=== PATIENT | female | born 2000 | race Caucasian/White ===

== ENCOUNTER 2019-12-25 11:42 | Inpatient (IN) | payer MEDICAID, OTHER ==
[~2019-12-25] VITALS: Ht 152.4 cm; Wt 64.0 kg
[2019-12-25] MEDS ORDERED: DOCU-350 PO (11:49)
[2019-12-25] MEDS ORDERED: PROP10TA73 PO (11:49)
[2019-12-25] MEDS ORDERED: DIPH12.54 PO (11:49)
[2019-12-25] MEDS ORDERED: OLAN5TAB2 PO (11:49)
[2019-12-25] MEDS ORDERED: LEVO50 PO (11:49)
[2019-12-25] MEDS ORDERED: CHOL100018 PO (11:49)
[2019-12-25 12:49] LABS: BASOPHILS % (AUTO) 0.6 % (0.0-2.0); EOSINOPHILS % (AUTO) 1.5 % (1.0-6.0); HEMOGLOBIN 13.4 g/dL (12.0-16.0); LYMPHOCYTES # (AUTO) 3.4 K/uL (1.0-4.8); LYMPHOCYTES % (AUTO) 36.8 % (22.0-44.0); MEAN CORPUSCULAR HEMOGLOBIN 31.4 pg (26.0-34.0); MEAN CORPUSCULAR HGB CONC 33.5 G/dL (31.0-37.0); MEAN CORPUSCULAR VOLUME 94 fL (80-100); MONOCYTES # (AUTO) 0.7 K/uL (0.1-1.0); MONOCYTES % (AUTO) 7.5 % (2.0-9.0); NEUTROPHILS % (AUTO) 53.6 % (40.0-70.0); PLATELET COUNT (AUTO) 224 K/uL (150-450); RED BLOOD CELL COUNT(AUTO) 4.26 MIL/uL (4.00-5.20); RED CELL DISTRIBUTION WIDTH 13.2 % (11.5-14.5)
[2019-12-25 13:01] LABS: ANION GAP 7 mmol/L (8-16); CALCIUM, TOTAL 9.2 mg/dL (8.8-10.5); CARBON DIOXIDE 26 mmol/L (22-29); CHLORIDE 103 mmol/L (98-107); GLOMERULAR FILTR. RATE CALC > 60 mL/min (>60); GLUCOSE,RANDOM 94 mg/dL (70-110); POTASSIUM 4.1 mmol/L (3.5-5.1); SODIUM SERUM 136 mmol/L (136-145); UREA NITROGEN, BLOOD 12 mg/dL (7-18)
[2019-12-25 13:09] LABS: AMPHET/METH SCREEN,URINE NEGATIVE (NEGATIVE); BARBITURATE SCREEN, URINE NEGATIVE (NEGATIVE); BENZODIAZEPINES SCREEN,URINE NEGATIVE (NEGATIVE); CANNABINOID SCREEN,URINE NEGATIVE (NEGATIVE); COCAINE SCREEN,URINE NEGATIVE (NEGATIVE); METHADONE SCREEN, URINE NEGATIVE (NEGATIVE); OPIATE SCREEN,URINE NEGATIVE (NEGATIVE); PHENCYCLIDINE SCREEN,URINE NEGATIVE (NEGATIVE)
[2019-12-25 13:12] LABS: ALANINE AMINOTRANSFERASE 22 U/L (12-78); ALBUMIN 3.7 g/dL (3.4-5.0); ALKALINE PHOSPHATASE 95 U/L (46-116); ASPARTATE AMINOTRANSFERASE 15 U/L (15-37); BILIRUBIN,TOTAL 0.3 mg/dL (0.1-1.0); HCG,QUANTITATIVE 1 mIU/mL (0-6)
[2019-12-25] MEDS ORDERED: ZOLPIDEM TARTRATE 10 MG TABLET PO PRN (14:15)
[2019-12-25] MEDS ORDERED: LORazepam 1 MG TABLET PO ONE (15:15)
[2019-12-25] MEDS: ChlorproMAZINE HCL 100 MG TABLET PO PRN (16:50)
[2019-12-25] MEDS ORDERED: DiphenhydrAMINE HCL 50 MG/ML VIAL IM ONE (17:15)
[2019-12-25] MEDS ORDERED: LORazepam 2 MG/ML VIAL IM ONE (17:15)
[2019-12-25] MEDS ORDERED: HALOPERIDOL LACTATE 5 MG/ML VIAL IM ONE (17:15)
[2019-12-25] MEDS ORDERED: PROMETHAZINE HCL 25 MG TABLET PO PRN (18:45)
[2019-12-25] MEDS ORDERED: MAG HYDROX/AL HYDROX/SIMETH ES 30 ML SUSPENSION UDCUP PO PRN (18:45)
[2019-12-25] MEDS ORDERED: TUBERCULIN, PURIFIED PROTEIN DERIVATIVE 5 TU/0.1 ML SYRINGE ID ONE (18:45)
[2019-12-25] MEDS ORDERED: MAGNESIUM HYDROXIDE SUSPENSION 30 ML UDCUP PO PRN (18:45)
[2019-12-25] MEDS ORDERED: ACETAMINOPHEN 325 MG TABLET PO PRN (18:45)
[2019-12-25] MEDS ORDERED: GuaiFENesin/D-METHORPHAN [SUGAR-FREE] 200-20MG/10 ML SYRUP UDCUP PO PRN (18:45)
[2019-12-25] MEDS ORDERED: LOPERAMIDE HCL 2 MG CAPSULE PO PRN (18:45)
[2019-12-25 20:10] VITALS: BP 132/88
[2019-12-25] MEDS: CloNIDine HCL 0.1 MG TABLET PO SCH (21:00)
[2019-12-25] MEDS: TraZODone HCL 100 MG TABLET PO SCH (21:00)
[2019-12-25] MEDS: QUEtiapine FUMARATE 100 MG TABLET PO SCH (21:00)
[2019-12-26 06:59] LABS: CHOL/HDL RATIO 3.5 (3.9-5.7); THYROID STIMULATING HORMONE 2.53 uIU/mL (0.36-3.74)
[2019-12-26 08:00] VITALS: BP 124/90
[2019-12-26] MEDS: FOLIC ACID 1 MG TABLET PO SCH (08:34)
[2019-12-26] MEDS: QUEtiapine FUMARATE 100 MG TABLET PO SCH ×2 (08:34→13:31)
[2019-12-26] MEDS: THIAMINE 100 MG TABLET PO SCH ×2 (08:34→15:58)
[2019-12-26] MEDS: MULTIVITAMINS WITH MINERALS, THERAPEUTIC TABLET PO SCH (08:34)
[2019-12-26] MEDS: CloNIDine HCL 0.1 MG TABLET PO SCH ×2 (08:34→16:00)
[2019-12-26] MEDS: OMEGA-3/DHA/EPA/FISH OIL 1,000 MG CAPSULE PO SCH (08:34)
[2019-12-26] MEDS: LORazepam 1 MG TABLET PO PRN ×3 (09:34→15:58)
[2019-12-26] MEDS: ChlorproMAZINE HCL 100 MG TABLET PO PRN ×2 (09:35→19:56)
[2019-12-26 16:02] VITALS: BP 121/81
[2019-12-26] MEDS: TraZODone HCL 100 MG TABLET PO SCH (20:17)
[2019-12-26] MEDS ORDERED: QUEtiapine FUMARATE 200 MG TABLET PO SCH (21:00)
[2019-12-27] MEDS: ZOLPIDEM TARTRATE 10 MG TABLET PO PRN (00:15)
[2019-12-27] MEDS: LORazepam 1 MG TABLET PO PRN ×2 (00:15→12:42)
[2019-12-27 00:19] VITALS: BP 105/62
[2019-12-27 08:30] VITALS: BP 116/82
[2019-12-27] MEDS ORDERED: QUEtiapine FUMARATE 100 MG TABLET PO SCH (09:00)
[2019-12-27] MEDS: OMEGA-3/DHA/EPA/FISH OIL 1,000 MG CAPSULE PO SCH (09:02)
[2019-12-27] MEDS: CloNIDine HCL 0.1 MG TABLET PO SCH ×2 (09:02→17:35)
[2019-12-27] MEDS: THIAMINE 100 MG TABLET PO SCH ×2 (09:02→16:44)
[2019-12-27] MEDS: FOLIC ACID 1 MG TABLET PO SCH (09:02)
[2019-12-27] MEDS: MULTIVITAMINS WITH MINERALS, THERAPEUTIC TABLET PO SCH (09:02)
[2019-12-27 11:35] LABS: APPEARANCE,URINE CLOUDY (CLEAR); BILIRUBIN,URINE NEGATIVE (NEGATIVE); GLUCOSE, URINE (UA) NEGATIVE (NEGATIVE); KETONES,URINE NEGATIVE (NEGATIVE); LEUKOCYTE ESTERASE ,URINE NEGATIVE (NEGATIVE); NITRATE,URINE NEGATIVE (NEGATIVE); OCCULT BLOOD,URINE NEGATIVE (NEGATIVE); PROTEIN,URINE NEGATIVE (NEGATIVE); UROBILINOGEN,URINE 0.2 mg/dL (<=1.0)
[2019-12-27] MEDS: QUEtiapine FUMARATE 100 MG TABLET PO SCH (12:15)
[2019-12-27] MEDS: QUEtiapine FUMARATE 100 MG TABLET PO PRN (15:52)
[2019-12-27] MEDS ORDERED: LORazepam 2 MG/ML VIAL ONE (17:13)
[2019-12-27] MEDS ORDERED: DiphenhydrAMINE HCL 50 MG/ML VIAL ONE (17:14)
[2019-12-27] MEDS ORDERED: HALOPERIDOL LACTATE 5 MG/ML VIAL ONE (17:14)
[2019-12-27] MEDS ORDERED: LORazepam 2 MG/ML VIAL IM ONE (17:15)
[2019-12-27] MEDS ORDERED: HALOPERIDOL LACTATE 5 MG/ML VIAL IM ONE (17:15)
[2019-12-27] MEDS ORDERED: DiphenhydrAMINE HCL 50 MG/ML VIAL IM ONE (17:15)
[2019-12-27] MEDS ORDERED: DIPH25TA20 PO (17:16)
[2019-12-27 17:21] VITALS: BP 105/67
[2019-12-27] MEDS: QUEtiapine FUMARATE 300 MG TABLET PO SCH (21:00)
[2019-12-27] MEDS: TraZODone HCL 100 MG TABLET PO SCH (21:00)
[2019-12-28 08:00] VITALS: BP 131/87
[2019-12-28] MEDS: OMEGA-3/DHA/EPA/FISH OIL 1,000 MG CAPSULE PO SCH (09:38)
[2019-12-28] MEDS: QUEtiapine FUMARATE 200 MG TABLET PO SCH (09:38)
[2019-12-28] MEDS: THIAMINE 100 MG TABLET PO SCH ×2 (09:38→16:53)
[2019-12-28] MEDS: FOLIC ACID 1 MG TABLET PO SCH (09:38)
[2019-12-28] MEDS: MULTIVITAMINS WITH MINERALS, THERAPEUTIC TABLET PO SCH (09:38)
[2019-12-28] MEDS: CloNIDine HCL 0.1 MG TABLET PO SCH ×2 (09:39→16:53)
[2019-12-28] MEDS: QUEtiapine FUMARATE 100 MG TABLET PO SCH (14:20)
[2019-12-28 16:11] VITALS: BP 120/77
[2019-12-28] MEDS: QUEtiapine FUMARATE 300 MG TABLET PO SCH (20:23)
[2019-12-28] MEDS: TraZODone HCL 100 MG TABLET PO SCH (20:23)
[2019-12-29] MEDS: CloNIDine HCL 0.1 MG TABLET PO SCH ×2 (08:22→16:25)
[2019-12-29] MEDS: FOLIC ACID 1 MG TABLET PO SCH (08:22)
[2019-12-29] MEDS: THIAMINE 100 MG TABLET PO SCH ×2 (08:22→16:25)
[2019-12-29] MEDS: QUEtiapine FUMARATE 200 MG TABLET PO SCH (08:22)
[2019-12-29] MEDS: OMEGA-3/DHA/EPA/FISH OIL 1,000 MG CAPSULE PO SCH (08:22)
[2019-12-29] MEDS: MULTIVITAMINS WITH MINERALS, THERAPEUTIC TABLET PO SCH (08:22)
[2019-12-29 08:24] VITALS: BP 124/88
[2019-12-29] MEDS: HydrOXYzine PAMOATE 50 MG CAPSULE PO PRN (09:21)
[2019-12-29] MEDS: QUEtiapine FUMARATE 100 MG TABLET PO SCH (14:11)
[2019-12-29 16:19] VITALS: BP 125/81
[2019-12-29] MEDS: TraZODone HCL 100 MG TABLET PO SCH (20:16)
[2019-12-29] MEDS: QUEtiapine FUMARATE 300 MG TABLET PO SCH (20:16)
[2019-12-29] MEDS: ZOLPIDEM TARTRATE 10 MG TABLET PO PRN (23:38)
[2019-12-29] MEDS: LORazepam 1 MG TABLET PO PRN (23:43)
[2019-12-30] MEDS: FOLIC ACID 1 MG TABLET PO SCH (08:35)
[2019-12-30] MEDS: MULTIVITAMINS WITH MINERALS, THERAPEUTIC TABLET PO SCH (08:35)
[2019-12-30] MEDS: THIAMINE 100 MG TABLET PO SCH ×2 (08:35→16:14)
[2019-12-30] MEDS: LORazepam 1 MG TABLET PO PRN (08:35)
[2019-12-30] MEDS: HydrOXYzine PAMOATE 50 MG CAPSULE PO PRN (08:35)
[2019-12-30] MEDS: OMEGA-3/DHA/EPA/FISH OIL 1,000 MG CAPSULE PO SCH (08:35)
[2019-12-30] MEDS: QUEtiapine FUMARATE 200 MG TABLET PO SCH (08:35)
[2019-12-30] MEDS: CloNIDine HCL 0.1 MG TABLET PO SCH ×2 (08:36→16:13)
[2019-12-30 11:19] VITALS: BP 140/63
[2019-12-30] MEDS: QUEtiapine FUMARATE 100 MG TABLET PO SCH (13:14)
[2019-12-30 17:44] VITALS: BP 106/73
[2019-12-30] MEDS ORDERED: OMEG-135 PO (19:16)
[2019-12-30] MEDS ORDERED: QUET200T29 PO (19:16)
[2019-12-30] MEDS ORDERED: QUET300T18 PO (19:16)
[2019-12-30] MEDS ORDERED: TRAZ-257 PO (19:16)
[2019-12-30] MEDS ORDERED: QUET100T33 PO (19:16)
[2019-12-30] MEDS: QUEtiapine FUMARATE 300 MG TABLET PO SCH (21:13)
[2019-12-30] MEDS: TraZODone HCL 100 MG TABLET PO SCH (21:13)
[2019-12-31] MEDS: QUEtiapine FUMARATE 100 MG TABLET PO PRN (00:42)
[2019-12-31] MEDS: ZOLPIDEM TARTRATE 10 MG TABLET PO PRN (00:43)
[2020-01-01] MEDS ORDERED: QUET300T2 PO (09:54)
[2020-01-01] MEDS ORDERED: QUET100T PO (09:54)
[2020-01-01] MEDS ORDERED: QUET200T PO (09:54)
[2020-01-01] MEDS ORDERED: DIPH25 PO (09:54)
== END 2019-12-31 00:45 | disposition short-term general hospital (02) | DRG 750 ==
LOC: EMS 11:52 → UNDOADMIN 14:02 → 3EC 14:02 → 3EI 14:02 → 3EC 19:00 → 3EI 12-27 17:37
PROVIDERS: ADMIT Psychiatry & Neurology Psychiatry; ATTEND Psychiatry & Neurology Psychiatry
DX: F25.9 Schizoaffective disorder, unspecified (principal); E03.9 Hypothyroidism, unspecified; E55.9 Vitamin D deficiency, unspecified; Z98.51 Tubal ligation status; G47.00 Insomnia, unspecified; F41.9 Anxiety disorder, unspecified; K59.00 Constipation, unspecified; K21.9 Gastro-esophageal reflux disease without esophagitis; I10 Essential (primary) hypertension; U07.1 COVID-19
CPT/HCPCS: 83036; 84443; 84481; G0480; J1200; J1630; J2060

== ENCOUNTER 2020-01-04 14:45 | Inpatient (IN) | payer MEDICAID, OTHER ==
[~2020-01-04] VITALS: Ht 152.4 cm; Wt 64.6 kg
[~2020-01-04 14:45] MED LIST: CHOL100018 PO; DIPH25 PO; DOCU-350 PO; LEVO50 PO; OLAN5TAB2 PO; OMEG-135 PO; PROP10TA73 PO; QUET100T PO; QUET200T PO; QUET300T2 PO; TRAZ-257 PO
[2020-01-04 15:30] VITALS: BP 125/78
[2020-01-04 16:00] VITALS: BP 125/78
[2020-01-04] MEDS: LORazepam 2 MG TABLET PO PRN (18:11)
[2020-01-04] MEDS: QUEtiapine FUMARATE 100 MG TABLET PO PRN (18:12)
[2020-01-04] MEDS: TraZODone HCL 100 MG TABLET PO SCH (20:16)
[2020-01-04] MEDS: QUEtiapine FUMARATE 200 MG TABLET PO SCH (20:16)
[2020-01-04] MEDS: DiphenhydrAMINE HCL 25 MG CAPSULE PO SCH (21:18)
[2020-01-05] MEDS: QUEtiapine FUMARATE 100 MG TABLET PO PRN ×2 (00:32→23:48)
[2020-01-05] MEDS: LORazepam 2 MG TABLET PO PRN ×2 (00:32→23:48)
[2020-01-05 00:33] VITALS: BP 125/75
[2020-01-05] MEDS: LEVOTHYROXINE SODIUM 50 MCG TABLET PO SCH (07:00)
[2020-01-05 08:00] VITALS: BP 121/84
[2020-01-05] MEDS ORDERED: ACETAMINOPHEN 325 MG TABLET PO PRN (08:30)
[2020-01-05] MEDS ORDERED: BENZOCAINE/MENTHOL LOZENGE PO PRN (08:30)
[2020-01-05] MEDS ORDERED: BACITRACIN 28 GM OINTMENT TP PRN (08:30)
[2020-01-05] MEDS ORDERED: PETROLATUM,WHITE 28 GM JELLY TP PRN (08:30)
[2020-01-05] MEDS ORDERED: MAGNESIUM HYDROXIDE SUSPENSION 30 ML UDCUP PO PRN (08:30)
[2020-01-05] MEDS ORDERED: LOPERAMIDE HCL 2 MG CAPSULE PO PRN (08:30)
[2020-01-05] MEDS ORDERED: IBUPROFEN 600 MG TABLET PO PRN (08:30)
[2020-01-05] MEDS ORDERED: OMEPRAZOLE 20 MG CAPSULE PO PRN (08:30)
[2020-01-05] MEDS ORDERED: ALBUTEROL SULFATE HFA 90 MCG/PUFF 8 GM INHALER IH PRN (08:30)
[2020-01-05] MEDS ORDERED: DOCUSATE SODIUM 100 MG CAPSULE PO PRN (08:30)
[2020-01-05] MEDS ORDERED: CloNIDine HCL 0.1 MG TABLET PO PRN (08:30)
[2020-01-05] MEDS ORDERED: MAG HYDROX/AL HYDROX/SIMETH ES 30 ML SUSPENSION UDCUP PO PRN (08:30)
[2020-01-05] MEDS ORDERED: ONDANSETRON HCL 4 MG TABLET PO PRN (08:30)
[2020-01-05] MEDS: DOCUSATE SODIUM 250 MG CAPSULE PO SCH (08:33)
[2020-01-05] MEDS: PROPRANOLOL HCL 10 MG TABLET PO SCH ×2 (08:33→17:14)
[2020-01-05] MEDS: FOLIC ACID 1 MG TABLET PO SCH (08:33)
[2020-01-05] MEDS: OMEGA-3/DHA/EPA/FISH OIL 1,000 MG CAPSULE PO SCH (08:33)
[2020-01-05] MEDS: MULTIVITAMINS WITH MINERALS, THERAPEUTIC TABLET PO SCH (08:34)
[2020-01-05] MEDS: ASCORBIC ACID 500 MG TABLET PO SCH (08:34)
[2020-01-05] MEDS: QUEtiapine FUMARATE 100 MG TABLET PO SCH ×3 (08:34→17:37)
[2020-01-05] MEDS: THIAMINE 100 MG TABLET PO SCH ×2 (08:34→17:12)
[2020-01-05] MEDS: ZINC SULFATE 220 MG CAPSULE PO SCH (08:34)
[2020-01-05] MEDS: ENOXAPARIN SODIUM 40 MG/0.4 ML PF SYRINGE SQ SCH (08:34)
[2020-01-05] MEDS: CHOLECALCIFEROL (VIT D3) 1,000 UNITS [25 MCG] TABLET PO SCH (08:34)
[2020-01-05 16:13] VITALS: BP 114/79
[2020-01-05] MEDS: QUEtiapine FUMARATE 200 MG TABLET PO SCH (20:41)
[2020-01-05] MEDS: DiphenhydrAMINE HCL 25 MG CAPSULE PO SCH (20:41)
[2020-01-05] MEDS: TraZODone HCL 100 MG TABLET PO SCH (20:41)
[2020-01-06] MEDS: LEVOTHYROXINE SODIUM 50 MCG TABLET PO SCH (07:00)
[2020-01-06] MEDS: ZINC SULFATE 220 MG CAPSULE PO SCH (09:00)
[2020-01-06] MEDS: OMEGA-3/DHA/EPA/FISH OIL 1,000 MG CAPSULE PO SCH (09:00)
[2020-01-06] MEDS: ASCORBIC ACID 500 MG TABLET PO SCH (09:00)
[2020-01-06] MEDS: MULTIVITAMINS WITH MINERALS, THERAPEUTIC TABLET PO SCH (09:00)
[2020-01-06] MEDS: CHOLECALCIFEROL (VIT D3) 1,000 UNITS [25 MCG] TABLET PO SCH (09:00)
[2020-01-06] MEDS: FOLIC ACID 1 MG TABLET PO SCH (09:00)
[2020-01-06] MEDS: PROPRANOLOL HCL 10 MG TABLET PO SCH ×2 (09:00→16:25)
[2020-01-06] MEDS: ENOXAPARIN SODIUM 40 MG/0.4 ML PF SYRINGE SQ SCH (09:00)
[2020-01-06] MEDS: QUEtiapine FUMARATE 100 MG TABLET PO SCH ×3 (09:00→16:25)
[2020-01-06] MEDS: THIAMINE 100 MG TABLET PO SCH ×2 (09:00→16:25)
[2020-01-06] MEDS: DOCUSATE SODIUM 250 MG CAPSULE PO SCH (09:00)
[2020-01-06 16:20] VITALS: BP 110/71
[2020-01-06] MEDS: TraZODone HCL 100 MG TABLET PO SCH (20:39)
[2020-01-06] MEDS: DiphenhydrAMINE HCL 25 MG CAPSULE PO SCH (20:39)
[2020-01-06] MEDS: DIVALPROEX SODIUM 500 MG ER TABLET PO SCH (20:39)
[2020-01-06] MEDS: QUEtiapine FUMARATE 300 MG TABLET PO SCH (20:39)
[2020-01-07] MEDS: LEVOTHYROXINE SODIUM 50 MCG TABLET PO SCH (06:41)
[2020-01-07] MEDS: OMEGA-3/DHA/EPA/FISH OIL 1,000 MG CAPSULE PO SCH (08:31)
[2020-01-07] MEDS: DOCUSATE SODIUM 250 MG CAPSULE PO SCH (08:31)
[2020-01-07] MEDS: CHOLECALCIFEROL (VIT D3) 1,000 UNITS [25 MCG] TABLET PO SCH (08:31)
[2020-01-07] MEDS: FOLIC ACID 1 MG TABLET PO SCH (08:32)
[2020-01-07] MEDS: QUEtiapine FUMARATE 100 MG TABLET PO SCH ×3 (08:32→16:33)
[2020-01-07] MEDS: PROPRANOLOL HCL 10 MG TABLET PO SCH ×2 (08:32→16:33)
[2020-01-07] MEDS: MULTIVITAMINS WITH MINERALS, THERAPEUTIC TABLET PO SCH (08:33)
[2020-01-07] MEDS: THIAMINE 100 MG TABLET PO SCH ×2 (08:34→16:32)
[2020-01-07] MEDS: ASCORBIC ACID 500 MG TABLET PO SCH (08:34)
[2020-01-07] MEDS: ZINC SULFATE 220 MG CAPSULE PO SCH (08:35)
[2020-01-07] MEDS: ENOXAPARIN SODIUM 40 MG/0.4 ML PF SYRINGE SQ SCH (08:36)
[2020-01-07 09:01] VITALS: BP 113/74
[2020-01-07 18:27] VITALS: BP_SYST 115; BP_SYST 118; BP_DIAS 77; BP_DIAS 82
[2020-01-07] MEDS: DiphenhydrAMINE HCL 25 MG CAPSULE PO SCH (20:00)
[2020-01-07] MEDS: DIVALPROEX SODIUM 500 MG ER TABLET PO SCH (20:00)
[2020-01-07] MEDS: QUEtiapine FUMARATE 300 MG TABLET PO SCH (20:00)
[2020-01-07] MEDS: TraZODone HCL 100 MG TABLET PO SCH (20:00)
[2020-01-08] MEDS: LEVOTHYROXINE SODIUM 50 MCG TABLET PO SCH (06:15)
[2020-01-08 08:06] VITALS: BP 120/78
[2020-01-08] MEDS: THIAMINE 100 MG TABLET PO SCH ×2 (08:22→16:10)
[2020-01-08] MEDS: ASCORBIC ACID 500 MG TABLET PO SCH (08:22)
[2020-01-08] MEDS: MULTIVITAMINS WITH MINERALS, THERAPEUTIC TABLET PO SCH (08:22)
[2020-01-08] MEDS: QUEtiapine FUMARATE 100 MG TABLET PO SCH ×3 (08:22→16:10)
[2020-01-08] MEDS: PROPRANOLOL HCL 10 MG TABLET PO SCH ×2 (08:22→16:10)
[2020-01-08] MEDS: OMEGA-3/DHA/EPA/FISH OIL 1,000 MG CAPSULE PO SCH (08:23)
[2020-01-08] MEDS: FOLIC ACID 1 MG TABLET PO SCH (08:23)
[2020-01-08] MEDS: ZINC SULFATE 220 MG CAPSULE PO SCH (08:23)
[2020-01-08] MEDS: DOCUSATE SODIUM 250 MG CAPSULE PO SCH (08:23)
[2020-01-08] MEDS: CHOLECALCIFEROL (VIT D3) 1,000 UNITS [25 MCG] TABLET PO SCH (08:23)
[2020-01-08] MEDS: ENOXAPARIN SODIUM 40 MG/0.4 ML PF SYRINGE SQ SCH (08:23)
[2020-01-08 17:33] VITALS: BP 122/76
[2020-01-08] MEDS: TraZODone HCL 100 MG TABLET PO SCH (20:41)
[2020-01-08] MEDS: DIVALPROEX SODIUM 500 MG ER TABLET PO SCH (20:41)
[2020-01-08] MEDS: QUEtiapine FUMARATE 300 MG TABLET PO SCH (20:41)
[2020-01-08] MEDS: DiphenhydrAMINE HCL 25 MG CAPSULE PO SCH (20:41)
[2020-01-09] MEDS: LEVOTHYROXINE SODIUM 50 MCG TABLET PO SCH (06:55)
[2020-01-09] MEDS: LORazepam 2 MG TABLET PO PRN (06:56)
[2020-01-09] MEDS: QUEtiapine FUMARATE 100 MG TABLET PO PRN (06:56)
[2020-01-09 08:30] VITALS: BP 126/71
[2020-01-09] MEDS: DOCUSATE SODIUM 250 MG CAPSULE PO SCH (09:20)
[2020-01-09] MEDS: OMEGA-3/DHA/EPA/FISH OIL 1,000 MG CAPSULE PO SCH (09:21)
[2020-01-09] MEDS: FOLIC ACID 1 MG TABLET PO SCH (09:21)
[2020-01-09] MEDS: PROPRANOLOL HCL 10 MG TABLET PO SCH ×2 (09:22→21:00)
[2020-01-09] MEDS: THIAMINE 100 MG TABLET PO SCH ×2 (09:23→21:00)
[2020-01-09] MEDS: QUEtiapine FUMARATE 100 MG TABLET PO SCH ×3 (09:23→21:00)
[2020-01-09] MEDS: MULTIVITAMINS WITH MINERALS, THERAPEUTIC TABLET PO SCH (09:23)
[2020-01-09] MEDS: ASCORBIC ACID 500 MG TABLET PO SCH (09:24)
[2020-01-09] MEDS: CHOLECALCIFEROL (VIT D3) 1,000 UNITS [25 MCG] TABLET PO SCH (09:24)
[2020-01-09] MEDS: ZINC SULFATE 220 MG CAPSULE PO SCH (09:24)
[2020-01-09] MEDS: ENOXAPARIN SODIUM 40 MG/0.4 ML PF SYRINGE SQ SCH (09:25)
[2020-01-09 16:00] VITALS: BP 111/66
[2020-01-09] MEDS: DIVALPROEX SODIUM 500 MG ER TABLET PO SCH (21:00)
[2020-01-09] MEDS: DiphenhydrAMINE HCL 25 MG CAPSULE PO SCH (21:00)
[2020-01-09] MEDS: TraZODone HCL 100 MG TABLET PO SCH (21:00)
[2020-01-09] MEDS ORDERED: QUEtiapine FUMARATE 200 MG TABLET PO SCH (21:00)
[2020-01-09] MEDS ORDERED: LORazepam 2 MG/ML VIAL IM PRN (23:30)
== END 2020-01-09 17:49 | disposition short-term general hospital (02) | DRG 750 ==
LOC: 3EC 14:45 → AHU 01-09 08:05 → 5N 01-09 17:49 → UNDODISIN 01-09 18:00
PROVIDERS: ADMIT Psychiatry & Neurology Psychiatry; ATTEND Psychiatry & Neurology Psychiatry
DX: F25.0 Schizoaffective disorder, bipolar type (principal); E03.9 Hypothyroidism, unspecified; F43.10 Post-traumatic stress disorder, unspecified; I10 Essential (primary) hypertension; U07.1 COVID-19; K21.9 Gastro-esophageal reflux disease without esophagitis; K59.00 Constipation, unspecified; G47.00 Insomnia, unspecified; Z55.9 Problems related to education and literacy, unspecified; Z59.9 Problem related to housing and economic circumstances, unspecified; Z65.3 Problems related to other legal circumstances; Z79.899 Other long term (current) drug therapy; Z91.410 Personal history of adult physical and sexual abuse
CPT/HCPCS: 87426; J1650; J2060

== ENCOUNTER 2020-01-09 18:00 | Inpatient (IN) | payer OTHER ==
[~2020-01-09] VITALS: Ht 152.4 cm; Wt 62.4 kg
[2020-01-10] MEDS ORDERED: ALBUTEROL SULFATE HFA 90 MCG/PUFF 8 GM INHALER IH PRN (04:05)
[2020-01-10] MEDS ORDERED: MAG HYDROX/AL HYDROX/SIMETH ES 30 ML SUSPENSION UDCUP PO PRN (04:15)
[2020-01-10] MEDS ORDERED: MAGNESIUM HYDROXIDE SUSPENSION 30 ML UDCUP PO PRN (04:15)
[2020-01-10] MEDS ORDERED: LOPERAMIDE HCL 2 MG CAPSULE PO PRN (04:15)
[2020-01-10] MEDS ORDERED: CloNIDine HCL 0.1 MG TABLET PO PRN (04:15)
[2020-01-10] MEDS ORDERED: BACITRACIN 28 GM OINTMENT TP PRN (04:15)
[2020-01-10] MEDS ORDERED: BENZOCAINE/MENTHOL LOZENGE PO PRN (04:15)
[2020-01-10] MEDS ORDERED: ONDANSETRON HCL 4 MG TABLET PO PRN (04:30)
[2020-01-10] MEDS ORDERED: QUEtiapine FUMARATE 100 MG TABLET PO PRN (04:30)
[2020-01-10] MEDS ORDERED: PETROLATUM,WHITE 28 GM JELLY TP PRN ×2 (04:30→05:00)
[2020-01-10] MEDS: LEVOTHYROXINE SODIUM 50 MCG TABLET PO SCH (06:55)
[2020-01-10 06:56] VITALS: BP 122/58
[2020-01-10] MEDS: LORazepam 2 MG/ML VIAL IM PRN (08:28)
[2020-01-10] MEDS: FOLIC ACID 1 MG TABLET PO SCH (08:52)
[2020-01-10] MEDS: DOCUSATE SODIUM 250 MG CAPSULE PO SCH (08:52)
[2020-01-10] MEDS: MULTIVITAMINS WITH MINERALS, THERAPEUTIC TABLET PO SCH (08:52)
[2020-01-10] MEDS: OMEGA-3/DHA/EPA/FISH OIL 1,000 MG CAPSULE PO SCH (08:52)
[2020-01-10] MEDS: ENOXAPARIN SODIUM 40 MG/0.4 ML PF SYRINGE SQ SCH (08:53)
[2020-01-10] MEDS: ASCORBIC ACID 500 MG TABLET PO SCH (08:53)
[2020-01-10] MEDS: ZINC SULFATE 220 MG CAPSULE PO SCH (08:53)
[2020-01-10] MEDS: THIAMINE 100 MG TABLET PO SCH ×2 (08:53→22:22)
[2020-01-10] MEDS: CHOLECALCIFEROL (VIT D3) 1,000 UNITS [25 MCG] TABLET PO SCH (08:53)
[2020-01-10] MEDS ORDERED: QUEtiapine FUMARATE 100 MG TABLET PO SCH (09:00)
[2020-01-10] MEDS ORDERED: PROPRANOLOL HCL 10 MG TABLET PO SCH (09:00)
[2020-01-10] MEDS ORDERED: LORazepam 2 MG/ML VIAL IM ONE ×2 (11:30→16:00)
[2020-01-10] MEDS ORDERED: DiphenhydrAMINE HCL 50 MG/ML VIAL IM ONE ×2 (11:30→16:00)
[2020-01-10] MEDS ORDERED: HALOPERIDOL LACTATE 5 MG/ML VIAL IM ONE ×2 (11:30→16:00)
[2020-01-10 15:26] VITALS: BP 121/75
[2020-01-10] MEDS: QUEtiapine FUMARATE 200 MG TABLET PO SCH ×2 (16:00→22:21)
[2020-01-10] MEDS: GuanFACINE HCL 1 MG TABLET PO SCH ×2 (16:00→22:21)
[2020-01-10 16:23] VITALS: BP 128/56
[2020-01-10 20:28] VITALS: BP 123/66
[2020-01-10] MEDS ORDERED: TraZODone HCL 100 MG TABLET PO SCH (21:00)
[2020-01-10] MEDS: ZOLPIDEM TARTRATE 5 MG TABLET PO SCH (21:00)
[2020-01-10] MEDS ORDERED: QUEtiapine FUMARATE 200 MG TABLET PO SCH (21:00)
[2020-01-10] MEDS: DiphenhydrAMINE HCL 25 MG CAPSULE PO SCH (22:20)
[2020-01-10] MEDS: DIVALPROEX SODIUM 500 MG ER TABLET PO SCH (22:20)
[2020-01-10] MEDS: TraZODone HCL 100 MG TABLET PO SCH (22:20)
[2020-01-11 04:19] VITALS: BP 116/68
[2020-01-11] MEDS: LEVOTHYROXINE SODIUM 50 MCG TABLET PO SCH (07:26)
[2020-01-11 08:43] VITALS: BP 105/56
[2020-01-11] MEDS: DOCUSATE SODIUM 100 MG CAPSULE PO PRN (08:53)
[2020-01-11] MEDS: CHOLECALCIFEROL (VIT D3) 1,000 UNITS [25 MCG] TABLET PO SCH ×2 (08:53→09:00)
[2020-01-11] MEDS: ASCORBIC ACID 500 MG TABLET PO SCH ×2 (08:53→09:00)
[2020-01-11] MEDS: GuanFACINE HCL 1 MG TABLET PO SCH ×3 (08:53→19:47)
[2020-01-11] MEDS: LORazepam 2 MG TABLET PO PRN ×2 (08:53→18:41)
[2020-01-11] MEDS: QUEtiapine FUMARATE 200 MG TABLET PO SCH ×4 (08:54→19:48)
[2020-01-11] MEDS: ENOXAPARIN SODIUM 40 MG/0.4 ML PF SYRINGE SQ SCH ×2 (08:54→09:00)
[2020-01-11] MEDS: ZINC SULFATE 220 MG CAPSULE PO SCH ×2 (08:54→09:00)
[2020-01-11] MEDS: OMEGA-3/DHA/EPA/FISH OIL 1,000 MG CAPSULE PO SCH ×2 (08:54→09:00)
[2020-01-11] MEDS: FOLIC ACID 1 MG TABLET PO SCH ×2 (08:54→09:00)
[2020-01-11] MEDS: MULTIVITAMINS WITH MINERALS, THERAPEUTIC TABLET PO SCH ×2 (08:54→09:00)
[2020-01-11] MEDS: THIAMINE 100 MG TABLET PO SCH ×3 (08:54→19:48)
[2020-01-11] MEDS: DOCUSATE SODIUM 250 MG CAPSULE PO SCH (09:00)
[2020-01-11] MEDS: ACETAMINOPHEN 325 MG TABLET PO PRN (10:27)
[2020-01-11] MEDS: LORazepam 2 MG/ML VIAL IM PRN (13:58)
[2020-01-11 19:30] VITALS: BP 111/67
[2020-01-11] MEDS: ZOLPIDEM TARTRATE 5 MG TABLET PO SCH (19:47)
[2020-01-11] MEDS: DiphenhydrAMINE HCL 25 MG CAPSULE PO SCH (19:47)
[2020-01-11] MEDS: TraZODone HCL 100 MG TABLET PO SCH (19:47)
[2020-01-11] MEDS: DIVALPROEX SODIUM 500 MG ER TABLET PO SCH (19:48)
[2020-01-11] MEDS: IBUPROFEN 600 MG TABLET PO PRN (19:48)
[2020-01-12] MEDS: LORazepam 2 MG TABLET PO PRN ×2 (06:05→13:21)
[2020-01-12] MEDS: LEVOTHYROXINE SODIUM 50 MCG TABLET PO SCH (06:05)
[2020-01-12 06:30] VITALS: BP 118/64
[2020-01-12] MEDS: IBUPROFEN 600 MG TABLET PO PRN ×2 (07:11→22:03)
[2020-01-12 07:49] VITALS: BP 99/44
[2020-01-12] MEDS: MULTIVITAMINS WITH MINERALS, THERAPEUTIC TABLET PO SCH (09:35)
[2020-01-12] MEDS: OMEGA-3/DHA/EPA/FISH OIL 1,000 MG CAPSULE PO SCH (09:35)
[2020-01-12] MEDS: DOCUSATE SODIUM 100 MG CAPSULE PO PRN (09:35)
[2020-01-12] MEDS: CHOLECALCIFEROL (VIT D3) 1,000 UNITS [25 MCG] TABLET PO SCH (09:35)
[2020-01-12] MEDS: ZINC SULFATE 220 MG CAPSULE PO SCH (09:35)
[2020-01-12] MEDS: GuanFACINE HCL 1 MG TABLET PO SCH ×3 (09:35→22:03)
[2020-01-12] MEDS: ASCORBIC ACID 500 MG TABLET PO SCH (09:35)
[2020-01-12] MEDS: THIAMINE 100 MG TABLET PO SCH ×2 (09:36→22:02)
[2020-01-12] MEDS: ENOXAPARIN SODIUM 40 MG/0.4 ML PF SYRINGE SQ SCH (09:39)
[2020-01-12] MEDS: FOLIC ACID 1 MG TABLET PO SCH (09:43)
[2020-01-12] MEDS: QUEtiapine FUMARATE 200 MG TABLET PO SCH ×4 (09:43→22:02)
[2020-01-12] MEDS: DOCUSATE SODIUM 250 MG CAPSULE PO SCH (09:43)
[2020-01-12 16:01] VITALS: BP 112/69
[2020-01-12] MEDS: TraZODone HCL 100 MG TABLET PO SCH (22:02)
[2020-01-12] MEDS: DIVALPROEX SODIUM 500 MG ER TABLET PO SCH (22:02)
[2020-01-12] MEDS: ZOLPIDEM TARTRATE 5 MG TABLET PO SCH (22:02)
[2020-01-12] MEDS: DiphenhydrAMINE HCL 25 MG CAPSULE PO SCH (22:03)
[2020-01-12 22:15] VITALS: BP 116/72
[2020-01-13] MEDS: IBUPROFEN 600 MG TABLET PO PRN (03:18)
[2020-01-13] MEDS: LORazepam 2 MG TABLET PO PRN (04:20)
[2020-01-13] MEDS: LEVOTHYROXINE SODIUM 50 MCG TABLET PO SCH (05:55)
[2020-01-13 08:49] VITALS: BP 107/66
[2020-01-13] MEDS: ASCORBIC ACID 500 MG TABLET PO SCH (08:54)
[2020-01-13] MEDS: GuanFACINE HCL 1 MG TABLET PO SCH ×3 (08:54→20:30)
[2020-01-13] MEDS: MULTIVITAMINS WITH MINERALS, THERAPEUTIC TABLET PO SCH (08:54)
[2020-01-13] MEDS: CHOLECALCIFEROL (VIT D3) 1,000 UNITS [25 MCG] TABLET PO SCH (08:54)
[2020-01-13] MEDS: ZINC SULFATE 220 MG CAPSULE PO SCH (08:55)
[2020-01-13] MEDS: ENOXAPARIN SODIUM 40 MG/0.4 ML PF SYRINGE SQ SCH (08:55)
[2020-01-13] MEDS: QUEtiapine FUMARATE 200 MG TABLET PO SCH ×4 (08:55→20:30)
[2020-01-13] MEDS: THIAMINE 100 MG TABLET PO SCH ×2 (08:55→20:30)
[2020-01-13] MEDS: DOCUSATE SODIUM 250 MG CAPSULE PO SCH (08:55)
[2020-01-13] MEDS: OMEGA-3/DHA/EPA/FISH OIL 1,000 MG CAPSULE PO SCH (08:55)
[2020-01-13] MEDS: FOLIC ACID 1 MG TABLET PO SCH (08:55)
[2020-01-13] MEDS: CARVEDILOL 3.125 MG TABLET PO SCH ×2 (08:58→20:31)
[2020-01-13 16:25] VITALS: BP 120/57
[2020-01-13 19:11] VITALS: BP 133/71
[2020-01-13] MEDS: DiphenhydrAMINE HCL 25 MG CAPSULE PO SCH (20:30)
[2020-01-13] MEDS: ZOLPIDEM TARTRATE 5 MG TABLET PO SCH (20:31)
[2020-01-13] MEDS: DIVALPROEX SODIUM 500 MG ER TABLET PO SCH (20:31)
[2020-01-13] MEDS: TraZODone HCL 100 MG TABLET PO SCH (20:31)
[2020-01-14] MEDS: LEVOTHYROXINE SODIUM 50 MCG TABLET PO SCH (06:36)
[2020-01-14] MEDS: LORazepam 2 MG TABLET PO PRN ×2 (08:25→12:31)
[2020-01-14] MEDS: ASCORBIC ACID 500 MG TABLET PO SCH (08:25)
[2020-01-14] MEDS: FOLIC ACID 1 MG TABLET PO SCH (08:25)
[2020-01-14] MEDS: CARVEDILOL 3.125 MG TABLET PO SCH ×2 (08:26→21:21)
[2020-01-14] MEDS: CHOLECALCIFEROL (VIT D3) 1,000 UNITS [25 MCG] TABLET PO SCH (08:26)
[2020-01-14] MEDS: GuanFACINE HCL 1 MG TABLET PO SCH ×3 (08:26→21:20)
[2020-01-14] MEDS: ZINC SULFATE 220 MG CAPSULE PO SCH (08:26)
[2020-01-14] MEDS: ENOXAPARIN SODIUM 40 MG/0.4 ML PF SYRINGE SQ SCH ×2 (08:26→08:40)
[2020-01-14] MEDS: MULTIVITAMINS WITH MINERALS, THERAPEUTIC TABLET PO SCH (08:26)
[2020-01-14] MEDS: QUEtiapine FUMARATE 200 MG TABLET PO SCH ×4 (08:26→21:21)
[2020-01-14] MEDS: OMEGA-3/DHA/EPA/FISH OIL 1,000 MG CAPSULE PO SCH (08:26)
[2020-01-14] MEDS: THIAMINE 100 MG TABLET PO SCH ×2 (08:28→21:20)
[2020-01-14] MEDS: DOCUSATE SODIUM 250 MG CAPSULE PO SCH (08:31)
[2020-01-14 08:47] LABS: BASOPHILS % (AUTO) 0.8 % (0.0-2.0); EOSINOPHILS % (AUTO) 1.4 % (1.0-6.0); HEMOGLOBIN 13.2 g/dL (12.0-16.0); LYMPHOCYTES # (AUTO) 1.8 K/uL (1.0-4.8); LYMPHOCYTES % (AUTO) 36.6 % (22.0-44.0); MEAN CORPUSCULAR HEMOGLOBIN 31.9 pg (26.0-34.0); MEAN CORPUSCULAR VOLUME 94 fL (80-100); MONOCYTES # (AUTO) 0.4 K/uL (0.1-1.0); MONOCYTES % (AUTO) 8.5 % (2.0-9.0); NEUTROPHILS # (AUTO) 2.7 K/uL (1.8-7.7); NEUTROPHILS % (AUTO) 52.7 % (40.0-70.0); PLATELET COUNT (AUTO) 235 K/uL (150-450); RED BLOOD CELL COUNT(AUTO) 4.15 MIL/uL (4.00-5.20); RED CELL DISTRIBUTION WIDTH 13.1 % (11.5-14.5)
[2020-01-14 08:58] LABS: ALANINE AMINOTRANSFERASE 39 U/L (12-78); ALBUMIN 3.5 g/dL (3.4-5.0); ALKALINE PHOSPHATASE 63 U/L (46-116); ANION GAP 6 mmol/L (8-16); ASPARTATE AMINOTRANSFERASE 37 U/L (15-37); BILIRUBIN,TOTAL 0.4 mg/dL (0.1-1.0); CALCIUM, TOTAL 9.1 mg/dL (8.8-10.5); CARBON DIOXIDE 30 mmol/L (22-29); CHLORIDE 106 mmol/L (98-107); CREATININE 0.92 mg/dL (0.60-1.30); GLOMERULAR FILTR. RATE CALC > 60 mL/min (>60); GLUCOSE,RANDOM 86 mg/dL (70-110); POTASSIUM 4.5 mmol/L (3.5-5.1); SODIUM SERUM 142 mmol/L (136-145); TOTAL PROTEIN, SERUM 7.1 g/dL (6.4-8.2); UREA NITROGEN, BLOOD 7 mg/dL (7-18)
[2020-01-14] MEDS: ACETAMINOPHEN 325 MG TABLET PO PRN (10:08)
[2020-01-14] MEDS: LORazepam 2 MG/ML VIAL IM PRN (14:27)
[2020-01-14 15:36] VITALS: BP 96/70
[2020-01-14] MEDS: DIVALPROEX SODIUM 500 MG ER TABLET PO SCH (21:20)
[2020-01-14] MEDS: ZOLPIDEM TARTRATE 5 MG TABLET PO SCH (21:21)
[2020-01-14] MEDS: DiphenhydrAMINE HCL 25 MG CAPSULE PO SCH (21:21)
[2020-01-14] MEDS: TraZODone HCL 100 MG TABLET PO SCH (21:21)
[2020-01-14 21:39] VITALS: BP 122/84
[2020-01-15] MEDS: LEVOTHYROXINE SODIUM 50 MCG TABLET PO SCH (06:06)
[2020-01-15 06:17] VITALS: BP 102/69
[2020-01-15] MEDS: CHOLECALCIFEROL (VIT D3) 1,000 UNITS [25 MCG] TABLET PO SCH (08:39)
[2020-01-15] MEDS: FOLIC ACID 1 MG TABLET PO SCH (08:39)
[2020-01-15] MEDS: OMEGA-3/DHA/EPA/FISH OIL 1,000 MG CAPSULE PO SCH (08:39)
[2020-01-15] MEDS: DOCUSATE SODIUM 250 MG CAPSULE PO SCH (08:39)
[2020-01-15] MEDS: ZINC SULFATE 220 MG CAPSULE PO SCH (08:40)
[2020-01-15] MEDS: CARVEDILOL 3.125 MG TABLET PO SCH ×2 (08:40→21:00)
[2020-01-15] MEDS: ASCORBIC ACID 500 MG TABLET PO SCH (08:40)
[2020-01-15] MEDS: GuanFACINE HCL 1 MG TABLET PO SCH ×3 (08:40→21:00)
[2020-01-15] MEDS: QUEtiapine FUMARATE 200 MG TABLET PO SCH ×4 (08:41→21:00)
[2020-01-15] MEDS: THIAMINE 100 MG TABLET PO SCH ×2 (08:41→21:00)
[2020-01-15] MEDS: LORazepam 2 MG TABLET PO PRN ×2 (08:41→12:56)
[2020-01-15] MEDS: MULTIVITAMINS WITH MINERALS, THERAPEUTIC TABLET PO SCH (08:41)
[2020-01-15] MEDS: ENOXAPARIN SODIUM 40 MG/0.4 ML PF SYRINGE SQ SCH (08:42)
[2020-01-15 09:01] VITALS: BP 100/61
[2020-01-15] MEDS ORDERED: LORazepam 2 MG/ML VIAL IM ONE (15:00)
[2020-01-15] MEDS ORDERED: DiphenhydrAMINE HCL 50 MG/ML VIAL IM ONE (15:00)
[2020-01-15] MEDS ORDERED: HALOPERIDOL LACTATE 5 MG/ML VIAL IM ONE (15:00)
[2020-01-15 15:42] VITALS: BP 108/64
[2020-01-15] MEDS: DiphenhydrAMINE HCL 25 MG CAPSULE PO SCH (21:00)
[2020-01-15] MEDS: ZOLPIDEM TARTRATE 5 MG TABLET PO SCH (21:00)
[2020-01-15] MEDS: DIVALPROEX SODIUM 500 MG ER TABLET PO SCH (21:00)
[2020-01-15] MEDS: TraZODone HCL 100 MG TABLET PO SCH (21:00)
[2020-01-16 05:15] VITALS: BP 104/68
[2020-01-16] MEDS: LEVOTHYROXINE SODIUM 50 MCG TABLET PO SCH (06:01)
[2020-01-16] MEDS: QUEtiapine FUMARATE 200 MG TABLET PO SCH ×4 (07:57→20:14)
[2020-01-16] MEDS: THIAMINE 100 MG TABLET PO SCH ×2 (07:57→20:14)
[2020-01-16] MEDS: ASCORBIC ACID 500 MG TABLET PO SCH (07:57)
[2020-01-16] MEDS: ZINC SULFATE 220 MG CAPSULE PO SCH (07:57)
[2020-01-16] MEDS: MULTIVITAMINS WITH MINERALS, THERAPEUTIC TABLET PO SCH (07:57)
[2020-01-16] MEDS: CHOLECALCIFEROL (VIT D3) 1,000 UNITS [25 MCG] TABLET PO SCH (07:57)
[2020-01-16] MEDS: CARVEDILOL 3.125 MG TABLET PO SCH ×2 (07:58→20:13)
[2020-01-16] MEDS: OMEGA-3/DHA/EPA/FISH OIL 1,000 MG CAPSULE PO SCH (07:58)
[2020-01-16] MEDS: FOLIC ACID 1 MG TABLET PO SCH (07:58)
[2020-01-16] MEDS: GuanFACINE HCL 1 MG TABLET PO SCH ×3 (07:58→21:58)
[2020-01-16] MEDS: LORazepam 2 MG TABLET PO PRN ×3 (07:58→15:48)
[2020-01-16] MEDS: ENOXAPARIN SODIUM 40 MG/0.4 ML PF SYRINGE SQ SCH (07:59)
[2020-01-16 08:15] VITALS: BP 110/66
[2020-01-16] MEDS: DOCUSATE SODIUM 250 MG CAPSULE PO SCH (08:16)
[2020-01-16 15:17] VITALS: BP 112/68
[2020-01-16] MEDS: ZOLPIDEM TARTRATE 5 MG TABLET PO SCH (20:13)
[2020-01-16] MEDS: DIVALPROEX SODIUM 500 MG ER TABLET PO SCH (20:13)
[2020-01-16] MEDS: DiphenhydrAMINE HCL 25 MG CAPSULE PO SCH (20:13)
[2020-01-16] MEDS: TraZODone HCL 100 MG TABLET PO SCH (20:14)
[2020-01-16 20:59] VITALS: BP 110/68
[2020-01-17 05:15] VITALS: BP 98/59
[2020-01-17] MEDS: LEVOTHYROXINE SODIUM 50 MCG TABLET PO SCH (05:55)
[2020-01-17] MEDS: CARVEDILOL 3.125 MG TABLET PO SCH ×2 (09:00→20:36)
[2020-01-17] MEDS: GuanFACINE HCL 1 MG TABLET PO SCH ×3 (09:00→20:37)
[2020-01-17] MEDS: ENOXAPARIN SODIUM 40 MG/0.4 ML PF SYRINGE SQ SCH (09:00)
[2020-01-17] MEDS: QUEtiapine FUMARATE 200 MG TABLET PO SCH ×4 (09:00→20:37)
[2020-01-17] MEDS: OMEGA-3/DHA/EPA/FISH OIL 1,000 MG CAPSULE PO SCH (11:48)
[2020-01-17] MEDS: MULTIVITAMINS WITH MINERALS, THERAPEUTIC TABLET PO SCH (11:48)
[2020-01-17] MEDS: CHOLECALCIFEROL (VIT D3) 1,000 UNITS [25 MCG] TABLET PO SCH (11:48)
[2020-01-17] MEDS: ZINC SULFATE 220 MG CAPSULE PO SCH (11:48)
[2020-01-17] MEDS: ASCORBIC ACID 500 MG TABLET PO SCH (11:49)
[2020-01-17] MEDS: FOLIC ACID 1 MG TABLET PO SCH (11:49)
[2020-01-17] MEDS: OMEPRAZOLE 20 MG CAPSULE PO PRN (11:49)
[2020-01-17] MEDS: DOCUSATE SODIUM 250 MG CAPSULE PO SCH (11:49)
[2020-01-17] MEDS: THIAMINE 100 MG TABLET PO SCH ×2 (11:50→21:52)
[2020-01-17 12:20] VITALS: BP 105/53
[2020-01-17 16:51] VITALS: BP 97/58
[2020-01-17] MEDS: LORazepam 2 MG TABLET PO PRN (19:39)
[2020-01-17 19:45] VITALS: BP 128/76
[2020-01-17] MEDS: ZOLPIDEM TARTRATE 5 MG TABLET PO SCH (20:35)
[2020-01-17] MEDS: DiphenhydrAMINE HCL 25 MG CAPSULE PO SCH (20:36)
[2020-01-17] MEDS: DIVALPROEX SODIUM 500 MG ER TABLET PO SCH (20:36)
[2020-01-17] MEDS: TraZODone HCL 100 MG TABLET PO SCH (20:37)
[2020-01-18] MEDS: LEVOTHYROXINE SODIUM 50 MCG TABLET PO SCH (05:15)
[2020-01-18 06:00] VITALS: BP 130/61
[2020-01-18] MEDS: THIAMINE 100 MG TABLET PO SCH ×2 (09:00→20:14)
[2020-01-18] MEDS: GuanFACINE HCL 1 MG TABLET PO SCH ×4 (09:00→20:14)
[2020-01-18] MEDS: CHOLECALCIFEROL (VIT D3) 1,000 UNITS [25 MCG] TABLET PO SCH (09:00)
[2020-01-18] MEDS: CARVEDILOL 3.125 MG TABLET PO SCH ×3 (09:00→21:29)
[2020-01-18] MEDS: OMEGA-3/DHA/EPA/FISH OIL 1,000 MG CAPSULE PO SCH (09:00)
[2020-01-18] MEDS: DOCUSATE SODIUM 250 MG CAPSULE PO SCH (09:00)
[2020-01-18] MEDS: QUEtiapine FUMARATE 200 MG TABLET PO SCH ×4 (09:00→20:14)
[2020-01-18] MEDS: ENOXAPARIN SODIUM 40 MG/0.4 ML PF SYRINGE SQ SCH (09:00)
[2020-01-18] MEDS: FOLIC ACID 1 MG TABLET PO SCH (09:01)
[2020-01-18] MEDS: ASCORBIC ACID 500 MG TABLET PO SCH (09:01)
[2020-01-18] MEDS: ZINC SULFATE 220 MG CAPSULE PO SCH (09:01)
[2020-01-18] MEDS: MULTIVITAMINS WITH MINERALS, THERAPEUTIC TABLET PO SCH (09:01)
[2020-01-18 12:49] VITALS: BP 94/62
[2020-01-18] MEDS: LORazepam 2 MG TABLET PO PRN ×2 (13:41→21:29)
[2020-01-18 16:38] VITALS: BP 99/65
[2020-01-18] MEDS: DIVALPROEX SODIUM 500 MG ER TABLET PO SCH (20:14)
[2020-01-18 20:45] VITALS: BP 104/66
[2020-01-18] MEDS: TraZODone HCL 100 MG TABLET PO SCH (21:00)
[2020-01-18] MEDS: DiphenhydrAMINE HCL 25 MG CAPSULE PO SCH (21:29)
[2020-01-18] MEDS: ZOLPIDEM TARTRATE 5 MG TABLET PO SCH (21:34)
[2020-01-19 05:57] VITALS: BP 113/75
[2020-01-19] MEDS: LEVOTHYROXINE SODIUM 50 MCG TABLET PO SCH (06:34)
[2020-01-19] MEDS: THIAMINE 100 MG TABLET PO SCH ×2 (09:00→20:20)
[2020-01-19] MEDS: QUEtiapine FUMARATE 200 MG TABLET PO SCH ×4 (09:00→20:20)
[2020-01-19] MEDS: MULTIVITAMINS WITH MINERALS, THERAPEUTIC TABLET PO SCH (09:00)
[2020-01-19] MEDS: CARVEDILOL 3.125 MG TABLET PO SCH ×2 (09:00→20:24)
[2020-01-19] MEDS: OMEGA-3/DHA/EPA/FISH OIL 1,000 MG CAPSULE PO SCH (09:00)
[2020-01-19] MEDS: FOLIC ACID 1 MG TABLET PO SCH (09:00)
[2020-01-19] MEDS: ASCORBIC ACID 500 MG TABLET PO SCH (09:00)
[2020-01-19] MEDS: ZINC SULFATE 220 MG CAPSULE PO SCH (09:00)
[2020-01-19] MEDS: ENOXAPARIN SODIUM 40 MG/0.4 ML PF SYRINGE SQ SCH (09:00)
[2020-01-19] MEDS: CHOLECALCIFEROL (VIT D3) 1,000 UNITS [25 MCG] TABLET PO SCH (09:00)
[2020-01-19] MEDS: DOCUSATE SODIUM 250 MG CAPSULE PO SCH (09:00)
[2020-01-19] MEDS: GuanFACINE HCL 1 MG TABLET PO SCH ×3 (09:00→20:19)
[2020-01-19] MEDS: LORazepam 2 MG/ML VIAL IM PRN ×2 (11:18→18:56)
[2020-01-19] MEDS ORDERED: DiphenhydrAMINE HCL 50 MG/ML VIAL ONE (13:37)
[2020-01-19] MEDS ORDERED: HALOPERIDOL LACTATE 5 MG/ML VIAL ONE (13:38)
[2020-01-19] MEDS ORDERED: LORazepam 2 MG/ML VIAL IM ONE (13:45)
[2020-01-19] MEDS ORDERED: DiphenhydrAMINE HCL 50 MG/ML VIAL IVP ONE (13:45)
[2020-01-19] MEDS ORDERED: DiphenhydrAMINE HCL 50 MG/ML VIAL IM ONE (14:30)
[2020-01-19 20:15] VITALS: BP 113/71
[2020-01-19] MEDS: TraZODone HCL 100 MG TABLET PO SCH (20:19)
[2020-01-19] MEDS: DiphenhydrAMINE HCL 25 MG CAPSULE PO SCH (20:19)
[2020-01-19] MEDS: DIVALPROEX SODIUM 500 MG ER TABLET PO SCH (20:19)
[2020-01-19] MEDS: ZOLPIDEM TARTRATE 5 MG TABLET PO SCH (20:20)
[2020-01-20 04:51] VITALS: BP 94/55
[2020-01-20] MEDS: LEVOTHYROXINE SODIUM 50 MCG TABLET PO SCH (07:11)
[2020-01-20 08:05] VITALS: BP 102/62
[2020-01-20] MEDS: CHOLECALCIFEROL (VIT D3) 1,000 UNITS [25 MCG] TABLET PO SCH (09:26)
[2020-01-20] MEDS: FOLIC ACID 1 MG TABLET PO SCH (09:26)
[2020-01-20] MEDS: DOCUSATE SODIUM 100 MG CAPSULE PO PRN (09:26)
[2020-01-20] MEDS: ASCORBIC ACID 500 MG TABLET PO SCH (09:26)
[2020-01-20] MEDS: ENOXAPARIN SODIUM 40 MG/0.4 ML PF SYRINGE SQ SCH (09:26)
[2020-01-20] MEDS: QUEtiapine FUMARATE 200 MG TABLET PO SCH ×4 (09:26→19:58)
[2020-01-20] MEDS: MULTIVITAMINS WITH MINERALS, THERAPEUTIC TABLET PO SCH (09:26)
[2020-01-20] MEDS: THIAMINE 100 MG TABLET PO SCH ×2 (09:26→19:58)
[2020-01-20] MEDS: CARVEDILOL 3.125 MG TABLET PO SCH ×2 (09:26→19:58)
[2020-01-20] MEDS: ZINC SULFATE 220 MG CAPSULE PO SCH (09:26)
[2020-01-20] MEDS: OMEGA-3/DHA/EPA/FISH OIL 1,000 MG CAPSULE PO SCH (09:26)
[2020-01-20] MEDS: GuanFACINE HCL 1 MG TABLET PO SCH ×3 (09:26→19:58)
[2020-01-20] MEDS: DOCUSATE SODIUM 250 MG CAPSULE PO SCH (09:36)
[2020-01-20 15:35] VITALS: BP 112/68
[2020-01-20] MEDS: LORazepam 2 MG/ML VIAL IM PRN (15:45)
[2020-01-20] MEDS ORDERED: LORazepam 2 MG/ML VIAL IM ONE ×2 (16:45→20:00)
[2020-01-20] MEDS ORDERED: HALOPERIDOL LACTATE 5 MG/ML VIAL IM ONE (16:45)
[2020-01-20] MEDS ORDERED: DiphenhydrAMINE HCL 50 MG/ML VIAL IM ONE (16:45)
[2020-01-20] MEDS: ZOLPIDEM TARTRATE 5 MG TABLET PO SCH (19:58)
[2020-01-20] MEDS: DIVALPROEX SODIUM 500 MG ER TABLET PO SCH (19:58)
[2020-01-20] MEDS: DiphenhydrAMINE HCL 25 MG CAPSULE PO SCH (19:58)
[2020-01-20] MEDS: TraZODone HCL 100 MG TABLET PO SCH (19:58)
[2020-01-20 20:10] VITALS: BP 100/64
[2020-01-21] MEDS: LORazepam 2 MG TABLET PO PRN ×2 (07:38→17:47)
[2020-01-21] MEDS: LEVOTHYROXINE SODIUM 50 MCG TABLET PO SCH (07:38)
[2020-01-21 08:00] VITALS: BP 104/66
[2020-01-21] MEDS: CARVEDILOL 3.125 MG TABLET PO SCH ×2 (08:59→20:22)
[2020-01-21] MEDS: OMEGA-3/DHA/EPA/FISH OIL 1,000 MG CAPSULE PO SCH (08:59)
[2020-01-21] MEDS: DOCUSATE SODIUM 250 MG CAPSULE PO SCH (08:59)
[2020-01-21] MEDS: ZINC SULFATE 220 MG CAPSULE PO SCH (09:00)
[2020-01-21] MEDS: CHOLECALCIFEROL (VIT D3) 1,000 UNITS [25 MCG] TABLET PO SCH (09:00)
[2020-01-21] MEDS: MULTIVITAMINS WITH MINERALS, THERAPEUTIC TABLET PO SCH (09:00)
[2020-01-21] MEDS: ASCORBIC ACID 500 MG TABLET PO SCH (09:00)
[2020-01-21] MEDS: THIAMINE 100 MG TABLET PO SCH ×2 (09:00→20:22)
[2020-01-21] MEDS: QUEtiapine FUMARATE 200 MG TABLET PO SCH ×4 (09:00→20:22)
[2020-01-21] MEDS: FOLIC ACID 1 MG TABLET PO SCH (09:00)
[2020-01-21] MEDS: GuanFACINE HCL 1 MG TABLET PO SCH ×3 (09:00→20:21)
[2020-01-21] MEDS: ENOXAPARIN SODIUM 40 MG/0.4 ML PF SYRINGE SQ SCH (09:01)
[2020-01-21 16:01] VITALS: BP 95/64
[2020-01-21 19:30] VITALS: BP 97/65
[2020-01-21] MEDS: ZOLPIDEM TARTRATE 5 MG TABLET PO SCH (20:22)
[2020-01-21] MEDS: DiphenhydrAMINE HCL 25 MG CAPSULE PO SCH (20:22)
[2020-01-21] MEDS: TraZODone HCL 100 MG TABLET PO SCH (20:22)
[2020-01-21] MEDS: DIVALPROEX SODIUM 500 MG ER TABLET PO SCH (20:22)
[2020-01-21 23:40] VITALS: BP 92/57
[2020-01-22] MEDS: LORazepam 2 MG TABLET PO PRN (07:12)
[2020-01-22] MEDS: LEVOTHYROXINE SODIUM 50 MCG TABLET PO SCH (07:12)
[2020-01-22 08:09] VITALS: BP 90/52
[2020-01-22] MEDS: OMEGA-3/DHA/EPA/FISH OIL 1,000 MG CAPSULE PO SCH (08:13)
[2020-01-22] MEDS: ENOXAPARIN SODIUM 40 MG/0.4 ML PF SYRINGE SQ SCH (08:13)
[2020-01-22] MEDS: THIAMINE 100 MG TABLET PO SCH ×2 (08:13→19:37)
[2020-01-22] MEDS: CHOLECALCIFEROL (VIT D3) 1,000 UNITS [25 MCG] TABLET PO SCH (08:13)
[2020-01-22] MEDS: ASCORBIC ACID 500 MG TABLET PO SCH (08:14)
[2020-01-22] MEDS: FOLIC ACID 1 MG TABLET PO SCH (08:14)
[2020-01-22] MEDS: MULTIVITAMINS WITH MINERALS, THERAPEUTIC TABLET PO SCH (08:14)
[2020-01-22] MEDS: DOCUSATE SODIUM 100 MG CAPSULE PO PRN (08:14)
[2020-01-22] MEDS: ZINC SULFATE 220 MG CAPSULE PO SCH (08:14)
[2020-01-22] MEDS: GuanFACINE HCL 1 MG TABLET PO SCH ×3 (08:14→19:37)
[2020-01-22] MEDS: QUEtiapine FUMARATE 200 MG TABLET PO SCH ×5 (08:14→19:37)
[2020-01-22] MEDS: DOCUSATE SODIUM 250 MG CAPSULE PO SCH (08:17)
[2020-01-22 13:22] VITALS: BP 101/60
[2020-01-22 16:18] VITALS: BP 90/58
[2020-01-22] MEDS: DiphenhydrAMINE HCL 25 MG CAPSULE PO SCH (19:37)
[2020-01-22] MEDS: TraZODone HCL 100 MG TABLET PO SCH (19:37)
[2020-01-22] MEDS: ZOLPIDEM TARTRATE 5 MG TABLET PO SCH (19:37)
[2020-01-22] MEDS: DIVALPROEX SODIUM 500 MG ER TABLET PO SCH (19:38)
[2020-01-22 19:41] VITALS: BP 115/70
[2020-01-22 23:45] VITALS: BP 110/72
[2020-01-22] MEDS: LORazepam 2 MG/ML VIAL IM PRN (23:52)
[2020-01-23] MEDS: LEVOTHYROXINE SODIUM 50 MCG TABLET PO SCH (06:44)
[2020-01-23 08:05] VITALS: BP 100/56
[2020-01-23] MEDS: ENOXAPARIN SODIUM 40 MG/0.4 ML PF SYRINGE SQ SCH (09:00)
[2020-01-23] MEDS: DOCUSATE SODIUM 250 MG CAPSULE PO SCH (09:00)
[2020-01-23] MEDS: OMEGA-3/DHA/EPA/FISH OIL 1,000 MG CAPSULE PO SCH (09:00)
[2020-01-23] MEDS: GuanFACINE HCL 1 MG TABLET PO SCH ×3 (09:00→20:23)
[2020-01-23] MEDS: ZINC SULFATE 220 MG CAPSULE PO SCH (09:00)
[2020-01-23] MEDS: FOLIC ACID 1 MG TABLET PO SCH (09:00)
[2020-01-23] MEDS: CHOLECALCIFEROL (VIT D3) 1,000 UNITS [25 MCG] TABLET PO SCH (09:00)
[2020-01-23] MEDS: QUEtiapine FUMARATE 200 MG TABLET PO SCH ×4 (09:00→20:23)
[2020-01-23] MEDS: THIAMINE 100 MG TABLET PO SCH ×2 (09:00→20:23)
[2020-01-23] MEDS: ASCORBIC ACID 500 MG TABLET PO SCH (09:00)
[2020-01-23] MEDS: MULTIVITAMINS WITH MINERALS, THERAPEUTIC TABLET PO SCH (09:00)
[2020-01-23] MEDS: LORazepam 2 MG TABLET PO PRN (14:14)
[2020-01-23 19:39] VITALS: BP 104/64
[2020-01-23] MEDS: TraZODone HCL 100 MG TABLET PO SCH (20:23)
[2020-01-23] MEDS: ZOLPIDEM TARTRATE 5 MG TABLET PO SCH (20:23)
[2020-01-23] MEDS: DIVALPROEX SODIUM 500 MG ER TABLET PO SCH (20:23)
[2020-01-23] MEDS: DiphenhydrAMINE HCL 25 MG CAPSULE PO SCH (20:23)
[2020-01-23 23:30] VITALS: BP 93/63
[2020-01-24] MEDS: LORazepam 2 MG TABLET PO PRN ×2 (00:13→06:45)
[2020-01-24] MEDS: LEVOTHYROXINE SODIUM 50 MCG TABLET PO SCH (06:18)
[2020-01-24 06:26] VITALS: BP 108/77
[2020-01-24] MEDS: GuanFACINE HCL 1 MG TABLET PO SCH ×3 (07:44→20:11)
[2020-01-24] MEDS: QUEtiapine FUMARATE 200 MG TABLET PO SCH ×4 (07:44→20:12)
[2020-01-24] MEDS: OMEPRAZOLE 20 MG CAPSULE PO PRN (07:44)
[2020-01-24] MEDS: OMEGA-3/DHA/EPA/FISH OIL 1,000 MG CAPSULE PO SCH (07:44)
[2020-01-24] MEDS: ASCORBIC ACID 500 MG TABLET PO SCH (07:44)
[2020-01-24] MEDS: MULTIVITAMINS WITH MINERALS, THERAPEUTIC TABLET PO SCH (07:45)
[2020-01-24] MEDS: ZINC SULFATE 220 MG CAPSULE PO SCH (07:45)
[2020-01-24] MEDS: DOCUSATE SODIUM 100 MG CAPSULE PO PRN (07:45)
[2020-01-24] MEDS: ENOXAPARIN SODIUM 40 MG/0.4 ML PF SYRINGE SQ SCH (07:53)
[2020-01-24] MEDS: CHOLECALCIFEROL (VIT D3) 1,000 UNITS [25 MCG] TABLET PO SCH (07:54)
[2020-01-24] MEDS: DOCUSATE SODIUM 250 MG CAPSULE PO SCH (07:56)
[2020-01-24] MEDS: THIAMINE 100 MG TABLET PO SCH ×2 (07:57→20:11)
[2020-01-24] MEDS: FOLIC ACID 1 MG TABLET PO SCH (07:57)
[2020-01-24 08:06] VITALS: BP 117/68
[2020-01-24 19:18] VITALS: BP 97/61
[2020-01-24] MEDS: DIVALPROEX SODIUM 500 MG ER TABLET PO SCH (20:12)
[2020-01-24] MEDS: DiphenhydrAMINE HCL 25 MG CAPSULE PO SCH (20:12)
[2020-01-24] MEDS: TraZODone HCL 100 MG TABLET PO SCH (20:12)
[2020-01-24] MEDS: ZOLPIDEM TARTRATE 5 MG TABLET PO SCH (20:12)
[2020-01-25] MEDS: LEVOTHYROXINE SODIUM 50 MCG TABLET PO SCH (05:39)
[2020-01-25] MEDS: ENOXAPARIN SODIUM 40 MG/0.4 ML PF SYRINGE SQ SCH (09:00)
[2020-01-25] MEDS: GuanFACINE HCL 1 MG TABLET PO SCH ×4 (09:00→22:25)
[2020-01-25 11:17] VITALS: BP 94/59
[2020-01-25] MEDS: THIAMINE 100 MG TABLET PO SCH ×2 (11:29→22:26)
[2020-01-25] MEDS: DOCUSATE SODIUM 100 MG CAPSULE PO PRN (11:29)
[2020-01-25] MEDS: ASCORBIC ACID 500 MG TABLET PO SCH (11:30)
[2020-01-25] MEDS: OMEGA-3/DHA/EPA/FISH OIL 1,000 MG CAPSULE PO SCH (11:30)
[2020-01-25] MEDS: QUEtiapine FUMARATE 200 MG TABLET PO SCH ×4 (11:30→22:25)
[2020-01-25] MEDS: ZINC SULFATE 220 MG CAPSULE PO SCH (11:30)
[2020-01-25] MEDS: MULTIVITAMINS WITH MINERALS, THERAPEUTIC TABLET PO SCH (11:30)
[2020-01-25] MEDS: FOLIC ACID 1 MG TABLET PO SCH (11:40)
[2020-01-25] MEDS: CHOLECALCIFEROL (VIT D3) 1,000 UNITS [25 MCG] TABLET PO SCH (11:40)
[2020-01-25] MEDS: DOCUSATE SODIUM 250 MG CAPSULE PO SCH (11:46)
[2020-01-25] MEDS: LORazepam 2 MG TABLET PO PRN (15:11)
[2020-01-25] MEDS ORDERED: LORazepam 2 MG/ML VIAL IM ONE (16:15)
[2020-01-25] MEDS ORDERED: DiphenhydrAMINE HCL 50 MG/ML VIAL IM ONE (16:15)
[2020-01-25 16:33] VITALS: BP 152/74
[2020-01-25] MEDS: HALOPERIDOL LACTATE 5 MG/ML VIAL IM ONE ×2 (16:34→16:41)
[2020-01-25 19:40] VITALS: BP 127/80
[2020-01-25] MEDS: ZOLPIDEM TARTRATE 5 MG TABLET PO SCH (22:23)
[2020-01-25] MEDS: TraZODone HCL 100 MG TABLET PO SCH (22:24)
[2020-01-25] MEDS: DIVALPROEX SODIUM 500 MG ER TABLET PO SCH (22:24)
[2020-01-25] MEDS: DiphenhydrAMINE HCL 25 MG CAPSULE PO SCH (22:24)
[2020-01-26 04:18] VITALS: BP 100/63
[2020-01-26] MEDS: LEVOTHYROXINE SODIUM 50 MCG TABLET PO SCH (05:40)
[2020-01-26 08:12] VITALS: BP 128/80
[2020-01-26] MEDS: GuanFACINE HCL 1 MG TABLET PO SCH ×3 (08:16→20:16)
[2020-01-26] MEDS: CHOLECALCIFEROL (VIT D3) 1,000 UNITS [25 MCG] TABLET PO SCH (08:16)
[2020-01-26] MEDS: FOLIC ACID 1 MG TABLET PO SCH (08:16)
[2020-01-26] MEDS: OMEGA-3/DHA/EPA/FISH OIL 1,000 MG CAPSULE PO SCH (08:16)
[2020-01-26] MEDS: DOCUSATE SODIUM 250 MG CAPSULE PO SCH (08:16)
[2020-01-26] MEDS: ZINC SULFATE 220 MG CAPSULE PO SCH (08:17)
[2020-01-26] MEDS: MULTIVITAMINS WITH MINERALS, THERAPEUTIC TABLET PO SCH (08:17)
[2020-01-26] MEDS: QUEtiapine FUMARATE 200 MG TABLET PO SCH ×5 (08:17→20:15)
[2020-01-26] MEDS: ASCORBIC ACID 500 MG TABLET PO SCH (08:17)
[2020-01-26] MEDS: LORazepam 2 MG TABLET PO PRN ×4 (08:18→20:15)
[2020-01-26] MEDS: THIAMINE 100 MG TABLET PO SCH ×2 (08:19→20:38)
[2020-01-26] MEDS: ENOXAPARIN SODIUM 40 MG/0.4 ML PF SYRINGE SQ SCH (08:26)
[2020-01-26 15:30] VITALS: BP 119/78
[2020-01-26 19:20] VITALS: BP 119/82
[2020-01-26] MEDS: ZOLPIDEM TARTRATE 5 MG TABLET PO SCH (20:15)
[2020-01-26] MEDS: TraZODone HCL 100 MG TABLET PO SCH (20:15)
[2020-01-26] MEDS: DIVALPROEX SODIUM 500 MG ER TABLET PO SCH (20:16)
[2020-01-26] MEDS: DiphenhydrAMINE HCL 25 MG CAPSULE PO SCH (20:16)
[2020-01-27] MEDS: ZINC SULFATE 220 MG CAPSULE PO SCH (08:49)
[2020-01-27] MEDS: MULTIVITAMINS WITH MINERALS, THERAPEUTIC TABLET PO SCH (08:50)
[2020-01-27] MEDS: ASCORBIC ACID 500 MG TABLET PO SCH (08:50)
[2020-01-27] MEDS: ENOXAPARIN SODIUM 40 MG/0.4 ML PF SYRINGE SQ SCH (08:50)
[2020-01-27] MEDS: LEVOTHYROXINE SODIUM 50 MCG TABLET PO SCH (08:50)
[2020-01-27] MEDS: CHOLECALCIFEROL (VIT D3) 1,000 UNITS [25 MCG] TABLET PO SCH (08:50)
[2020-01-27] MEDS: THIAMINE 100 MG TABLET PO SCH ×2 (08:50→20:11)
[2020-01-27] MEDS: DOCUSATE SODIUM 250 MG CAPSULE PO SCH (08:50)
[2020-01-27] MEDS: OMEGA-3/DHA/EPA/FISH OIL 1,000 MG CAPSULE PO SCH (08:50)
[2020-01-27] MEDS: FOLIC ACID 1 MG TABLET PO SCH (08:50)
[2020-01-27] MEDS: GuanFACINE HCL 1 MG TABLET PO SCH ×3 (08:50→20:11)
[2020-01-27] MEDS: QUEtiapine FUMARATE 200 MG TABLET PO SCH ×4 (08:51→20:11)
[2020-01-27 08:57] VITALS: BP 111/69
[2020-01-27] MEDS: LORazepam 2 MG TABLET PO PRN ×2 (14:29→20:14)
[2020-01-27 15:10] VITALS: BP 98/72
[2020-01-27] MEDS ORDERED: DiphenhydrAMINE HCL 50 MG/ML VIAL ONE (16:25)
[2020-01-27] MEDS ORDERED: HALOPERIDOL LACTATE 5 MG/ML VIAL ONE ×2 (16:26→16:27)
[2020-01-27] MEDS ORDERED: LORazepam 2 MG/ML VIAL IM ONE (16:30)
[2020-01-27] MEDS ORDERED: DiphenhydrAMINE HCL 50 MG/ML VIAL IM ONE (16:30)
[2020-01-27] MEDS ORDERED: HALOPERIDOL LACTATE 5 MG/ML VIAL IM ONE (16:30)
[2020-01-27 19:58] VITALS: BP 100/78
[2020-01-27] MEDS: DiphenhydrAMINE HCL 25 MG CAPSULE PO SCH (20:10)
[2020-01-27] MEDS: TraZODone HCL 100 MG TABLET PO SCH (20:10)
[2020-01-27] MEDS: DIVALPROEX SODIUM 500 MG ER TABLET PO SCH (20:10)
[2020-01-27] MEDS: ZOLPIDEM TARTRATE 5 MG TABLET PO SCH (20:10)
[2020-01-28 05:38] VITALS: BP 96/67
[2020-01-28] MEDS: LEVOTHYROXINE SODIUM 50 MCG TABLET PO SCH (06:09)
[2020-01-28] MEDS: ENOXAPARIN SODIUM 40 MG/0.4 ML PF SYRINGE SQ SCH (08:29)
[2020-01-28] MEDS: CHOLECALCIFEROL (VIT D3) 1,000 UNITS [25 MCG] TABLET PO SCH (08:29)
[2020-01-28] MEDS: GuanFACINE HCL 1 MG TABLET PO SCH ×2 (08:29→16:00)
[2020-01-28] MEDS: DOCUSATE SODIUM 250 MG CAPSULE PO SCH (08:29)
[2020-01-28] MEDS: ASCORBIC ACID 500 MG TABLET PO SCH (08:30)
[2020-01-28] MEDS: ZINC SULFATE 220 MG CAPSULE PO SCH (08:30)
[2020-01-28] MEDS: OMEGA-3/DHA/EPA/FISH OIL 1,000 MG CAPSULE PO SCH (08:30)
[2020-01-28] MEDS: MULTIVITAMINS WITH MINERALS, THERAPEUTIC TABLET PO SCH (08:30)
[2020-01-28] MEDS: FOLIC ACID 1 MG TABLET PO SCH (08:30)
[2020-01-28] MEDS: LORazepam 2 MG TABLET PO PRN ×2 (08:30→13:56)
[2020-01-28] MEDS: QUEtiapine FUMARATE 200 MG TABLET PO SCH ×3 (08:30→15:28)
[2020-01-28 08:31] VITALS: BP 99/56
[2020-01-28] MEDS: THIAMINE 100 MG TABLET PO SCH (08:32)
[2020-01-28 11:13] LABS: COVID AG,FIA SOURCE NASOPHARYNGEAL
[2020-01-28 16:00] VITALS: BP 106/77
[2020-01-28] MEDS ORDERED: ASCO500 PO (16:24)
[2020-01-28] MEDS ORDERED: ENOX40DI9 SQ (16:24)
[2020-01-28] MEDS ORDERED: FOLI-130 PO (16:25)
[2020-01-28] MEDS ORDERED: MULT-248 PO (16:26)
[2020-01-28] MEDS ORDERED: QUET100T PO ×2 (16:29→17:03)
[2020-01-28] MEDS ORDERED: QUET200T PO (16:31)
[2020-01-28] MEDS ORDERED: THIA100T80 PO (16:32)
[2020-01-28] MEDS ORDERED: ZINC220C14 PO (16:33)
[2020-01-28] MEDS ORDERED: ACET-2865 PO (16:38)
[2020-01-28] MEDS ORDERED: GUAIFDM PO (16:43)
[2020-01-28] MEDS ORDERED: LOPE-202 PO (16:44)
[2020-01-28] MEDS ORDERED: LORA-1001 PO ×2 (16:45→16:56)
[2020-01-28] MEDS ORDERED: MAAL30 PO ×2 (16:51→16:57)
[2020-01-28] MEDS ORDERED: MOM30 PO ×2 (16:52→17:01)
[2020-01-28] MEDS ORDERED: LOPE2 PO (16:56)
[2020-01-28] MEDS ORDERED: PROM-163 PO (17:02)
== END 2020-01-28 18:45 | DRG 137 ==
LOC: INTOOBSV 18:00 → 5N 18:00 → OBSVTOIN 18:00 → 5N 01-10 10:30 → AHU 01-10 10:30 → 6N 01-10 12:50
PROVIDERS: ADMIT Internal Medicine; ATTEND Internal Medicine
DX: U07.1 COVID-19 (principal); E03.9 Hypothyroidism, unspecified; F20.9 Schizophrenia, unspecified; F41.9 Anxiety disorder, unspecified; G47.00 Insomnia, unspecified; I10 Essential (primary) hypertension; K21.9 Gastro-esophageal reflux disease without esophagitis; K59.00 Constipation, unspecified; Z88.8 Allergy status to other drugs, medicaments and biological substances; Z79.899 Other long term (current) drug therapy
CPT/HCPCS: 87426; J1200; J1630; J1650; J2060

== ENCOUNTER 2020-01-28 15:58 | Inpatient (IN) | payer MEDICAID ==
[~2020-01-28] VITALS: Ht 152.4 cm; Wt 64.8 kg
[2020-01-28] MEDS ORDERED: ASCO500 PO (16:24)
[2020-01-28] MEDS ORDERED: ENOX40DI9 SQ (16:24)
[2020-01-28] MEDS ORDERED: FOLI-130 PO (16:25)
[2020-01-28] MEDS ORDERED: MULT-248 PO (16:26)
[2020-01-28] MEDS ORDERED: QUET100T PO ×2 (16:29→17:03)
[2020-01-28] MEDS ORDERED: GuaiFENesin/D-METHORPHAN [SUGAR-FREE] 200-20MG/10 ML SYRUP UDCUP PO PRN (16:30)
[2020-01-28] MEDS ORDERED: PROMETHAZINE HCL 25 MG TABLET PO PRN (16:30)
[2020-01-28] MEDS ORDERED: LOPERAMIDE HCL 2 MG CAPSULE PO PRN (16:30)
[2020-01-28] MEDS ORDERED: MAGNESIUM HYDROXIDE SUSPENSION 30 ML UDCUP PO PRN (16:30)
[2020-01-28] MEDS ORDERED: MAG HYDROX/AL HYDROX/SIMETH ES 30 ML SUSPENSION UDCUP PO PRN (16:30)
[2020-01-28] MEDS ORDERED: QUET200T PO (16:31)
[2020-01-28] MEDS ORDERED: THIA100T80 PO (16:32)
[2020-01-28] MEDS ORDERED: ZINC220C14 PO (16:33)
[2020-01-28] MEDS ORDERED: ACET-2865 PO (16:38)
[2020-01-28] MEDS ORDERED: GUAIFDM PO (16:43)
[2020-01-28] MEDS ORDERED: LOPE-202 PO (16:44)
[2020-01-28] MEDS ORDERED: LORA-1001 PO ×2 (16:45→16:56)
[2020-01-28] MEDS ORDERED: MAAL30 PO ×2 (16:51→16:57)
[2020-01-28] MEDS ORDERED: MOM30 PO ×2 (16:52→17:01)
[2020-01-28] MEDS ORDERED: LOPE2 PO (16:56)
[2020-01-28] MEDS ORDERED: PROM-163 PO (17:02)
[2020-01-28 19:18] VITALS: BP 94/60
[2020-01-28] MEDS ORDERED: INFLUENZA VIRUS VACCINE QVS 2020-21 (6MO+)/PF 60 MCG/0.5 ML SYRINGE IM ONE (20:00)
[2020-01-28] MEDS ORDERED: PNEUMOCOCCAL VACCINE POLYVALENT 0.5 ML VIAL [PPSV23] IM ONE (20:00)
[2020-01-28] MEDS: GuanFACINE HCL 1 MG TABLET PO SCH (21:42)
[2020-01-28] MEDS: DIVALPROEX SODIUM 500 MG ER TABLET PO SCH (21:43)
[2020-01-28] MEDS: TraZODone HCL 100 MG TABLET PO SCH (21:43)
[2020-01-28] MEDS: THIAMINE 100 MG TABLET PO SCH (21:43)
[2020-01-28] MEDS: OLANZapine 5 MG RAPDIS TABLET PO SCH (21:45)
[2020-01-29] MEDS: HydrOXYzine PAMOATE 50 MG CAPSULE PO PRN (09:16)
[2020-01-29] MEDS: OLANZapine 5 MG RAPDIS TABLET PO SCH ×3 (09:16→17:28)
[2020-01-29] MEDS: GuanFACINE HCL 1 MG TABLET PO SCH ×3 (09:16→17:00)
[2020-01-29] MEDS: MULTIVITAMINS WITH MINERALS, THERAPEUTIC TABLET PO SCH (09:16)
[2020-01-29] MEDS: OMEGA-3/DHA/EPA/FISH OIL 1,000 MG CAPSULE PO SCH (09:17)
[2020-01-29] MEDS: THIAMINE 100 MG TABLET PO SCH ×2 (09:17→17:28)
[2020-01-29] MEDS: LORazepam 2 MG TABLET PO PRN (09:17)
[2020-01-29] MEDS: FOLIC ACID 1 MG TABLET PO SCH (09:17)
[2020-01-29 16:22] VITALS: BP 90/60
[2020-01-29 17:51] VITALS: BP 102/70
[2020-01-29] MEDS: TraZODone HCL 100 MG TABLET PO SCH (20:39)
[2020-01-29] MEDS: DIVALPROEX SODIUM 500 MG ER TABLET PO SCH (20:39)
[2020-01-30 00:07] VITALS: BP 104/61
[2020-01-30] MEDS: ZOLPIDEM TARTRATE 10 MG TABLET PO PRN ×2 (00:08→23:53)
[2020-01-30] MEDS: LORazepam 2 MG TABLET PO PRN ×2 (00:08→21:58)
[2020-01-30 08:00] VITALS: BP 101/61
[2020-01-30] MEDS: MULTIVITAMINS WITH MINERALS, THERAPEUTIC TABLET PO SCH (10:14)
[2020-01-30] MEDS: OMEGA-3/DHA/EPA/FISH OIL 1,000 MG CAPSULE PO SCH (10:15)
[2020-01-30] MEDS: OLANZapine 5 MG RAPDIS TABLET PO SCH ×4 (10:15→20:07)
[2020-01-30] MEDS: HydrOXYzine PAMOATE 50 MG CAPSULE PO PRN (10:15)
[2020-01-30] MEDS: FOLIC ACID 1 MG TABLET PO SCH (10:15)
[2020-01-30] MEDS: THIAMINE 100 MG TABLET PO SCH ×2 (10:16→16:25)
[2020-01-30] MEDS: GuanFACINE HCL 1 MG TABLET PO SCH ×3 (10:16→16:25)
[2020-01-30 16:17] VITALS: BP 117/72
[2020-01-30] MEDS ORDERED: OMEG-135 PO (18:59)
[2020-01-30] MEDS ORDERED: TRAZ-257 PO (18:59)
[2020-01-30] MEDS ORDERED: GUAN1TAB2 PO (18:59)
[2020-01-30] MEDS ORDERED: OLAN5TAB30 PO ×2 (18:59→19:01)
[2020-01-30] MEDS ORDERED: DIVA-80 PO (18:59)
[2020-01-30] MEDS: DIVALPROEX SODIUM 500 MG ER TABLET PO SCH (20:06)
[2020-01-30] MEDS: TraZODone HCL 100 MG TABLET PO SCH (20:06)
[2020-01-31 00:51] VITALS: BP 131/78
[2020-01-31] MEDS: LORazepam 2 MG TABLET PO PRN ×3 (07:06→18:42)
[2020-01-31] MEDS: GuanFACINE HCL 1 MG TABLET PO SCH ×3 (08:04→16:01)
[2020-01-31] MEDS: THIAMINE 100 MG TABLET PO SCH ×2 (08:06→16:01)
[2020-01-31] MEDS: HydrOXYzine PAMOATE 50 MG CAPSULE PO PRN (08:06)
[2020-01-31] MEDS: MULTIVITAMINS WITH MINERALS, THERAPEUTIC TABLET PO SCH (08:06)
[2020-01-31] MEDS: FOLIC ACID 1 MG TABLET PO SCH (08:06)
[2020-01-31] MEDS: OLANZapine 5 MG RAPDIS TABLET PO SCH ×4 (08:06→20:16)
[2020-01-31] MEDS: OMEGA-3/DHA/EPA/FISH OIL 1,000 MG CAPSULE PO SCH (08:06)
[2020-01-31 08:13] VITALS: BP 99/62
[2020-01-31 16:44] VITALS: BP 113/70
[2020-01-31] MEDS: DIVALPROEX SODIUM 500 MG ER TABLET PO SCH (20:16)
[2020-01-31] MEDS: TraZODone HCL 100 MG TABLET PO SCH (20:16)
[2020-02-01 00:08] VITALS: BP 113/70
[2020-02-01] MEDS: ZOLPIDEM TARTRATE 10 MG TABLET PO PRN ×2 (00:09→21:51)
[2020-02-01] MEDS: HydrOXYzine PAMOATE 50 MG CAPSULE PO PRN ×2 (00:10→10:34)
[2020-02-01 08:30] VITALS: BP 99/60
[2020-02-01] MEDS: MULTIVITAMINS WITH MINERALS, THERAPEUTIC TABLET PO SCH (08:54)
[2020-02-01] MEDS: LORazepam 2 MG TABLET PO PRN ×2 (08:54→23:12)
[2020-02-01] MEDS: THIAMINE 100 MG TABLET PO SCH ×2 (08:55→16:31)
[2020-02-01] MEDS: OMEGA-3/DHA/EPA/FISH OIL 1,000 MG CAPSULE PO SCH (08:55)
[2020-02-01] MEDS: OLANZapine 5 MG RAPDIS TABLET PO SCH ×4 (08:55→20:31)
[2020-02-01] MEDS: FOLIC ACID 1 MG TABLET PO SCH (08:55)
[2020-02-01] MEDS: GuanFACINE HCL 1 MG TABLET PO SCH ×3 (08:55→16:32)
[2020-02-01 17:39] VITALS: BP 113/71
[2020-02-01] MEDS: ACETAMINOPHEN 325 MG TABLET PO PRN (17:39)
[2020-02-01] MEDS: DIVALPROEX SODIUM 500 MG ER TABLET PO SCH (20:30)
[2020-02-01] MEDS: TraZODone HCL 100 MG TABLET PO SCH (20:31)
[2020-02-02 02:04] VITALS: BP 120/77
[2020-02-02] MEDS: HydrOXYzine PAMOATE 50 MG CAPSULE PO PRN (02:06)
[2020-02-02] MEDS: LORazepam 2 MG TABLET PO PRN (07:34)
[2020-02-02 08:00] VITALS: BP 120/71
[2020-02-02] MEDS: MULTIVITAMINS WITH MINERALS, THERAPEUTIC TABLET PO SCH (08:39)
[2020-02-02] MEDS: OMEGA-3/DHA/EPA/FISH OIL 1,000 MG CAPSULE PO SCH (08:39)
[2020-02-02] MEDS: OLANZapine 5 MG RAPDIS TABLET PO SCH ×4 (08:39→21:14)
[2020-02-02] MEDS: GuanFACINE HCL 1 MG TABLET PO SCH ×3 (08:41→16:43)
[2020-02-02] MEDS: FOLIC ACID 1 MG TABLET PO SCH (08:41)
[2020-02-02] MEDS: THIAMINE 100 MG TABLET PO SCH ×2 (08:41→16:43)
[2020-02-02 16:01] VITALS: BP 121/74
[2020-02-02] MEDS: ACETAMINOPHEN 325 MG TABLET PO PRN (16:02)
[2020-02-02 16:15] VITALS: BP 121/74
[2020-02-02] MEDS: TraZODone HCL 100 MG TABLET PO SCH (21:14)
[2020-02-02] MEDS: DIVALPROEX SODIUM 500 MG ER TABLET PO SCH (21:14)
[2020-02-03] MEDS: ZOLPIDEM TARTRATE 10 MG TABLET PO PRN ×2 (00:01→21:38)
[2020-02-03] MEDS: OLANZapine 5 MG RAPDIS TABLET PO PRN ×2 (00:02→23:53)
[2020-02-03 00:04] VITALS: BP 125/82
[2020-02-03 08:00] VITALS: BP 148/86
[2020-02-03] MEDS: FOLIC ACID 1 MG TABLET PO SCH (08:35)
[2020-02-03] MEDS: OLANZapine 5 MG RAPDIS TABLET PO SCH ×4 (08:35→20:20)
[2020-02-03] MEDS: MULTIVITAMINS WITH MINERALS, THERAPEUTIC TABLET PO SCH (08:35)
[2020-02-03] MEDS: OMEGA-3/DHA/EPA/FISH OIL 1,000 MG CAPSULE PO SCH (08:35)
[2020-02-03] MEDS: THIAMINE 100 MG TABLET PO SCH ×2 (08:35→16:03)
[2020-02-03] MEDS: GuanFACINE HCL 1 MG TABLET PO SCH ×3 (08:38→16:01)
[2020-02-03] MEDS: LORazepam 2 MG TABLET PO PRN ×2 (16:01→23:53)
[2020-02-03 16:14] VITALS: BP 124/81
[2020-02-03] MEDS: TraZODone HCL 100 MG TABLET PO SCH (20:20)
[2020-02-03] MEDS: DIVALPROEX SODIUM 500 MG ER TABLET PO SCH (20:20)
[2020-02-04 06:52] LABS: BAND NEUTROPHILS % (MANUAL) 0 % (0-5)
[2020-02-04 07:06] LABS: HEMATOCRIT 38.2 % (36-46); HEMOGLOBIN 12.9 g/dL (12.0-16.0); MEAN CORPUSCULAR HEMOGLOBIN 31.9 pg (26.0-34.0); MEAN CORPUSCULAR HGB CONC 33.7 G/dL (31.0-37.0); MEAN CORPUSCULAR VOLUME 95 fL (80-100); PLATELET COUNT (AUTO) 194 K/uL (150-450); RED BLOOD CELL COUNT(AUTO) 4.04 MIL/uL (4.00-5.20); RED CELL DISTRIBUTION WIDTH 13.6 % (11.5-14.5)
[2020-02-04 07:25] LABS: ANION GAP 7 mmol/L (8-16); CARBON DIOXIDE 28 mmol/L (22-29); CHLORIDE 105 mmol/L (98-107); CHOL/HDL RATIO 3.8 (3.9-5.7); CHOLESTEROL 147 mg/dL (131-200); CREATININE 0.74 mg/dL (0.60-1.30); GLOMERULAR FILTR. RATE CALC > 60 mL/min (>60); GLUCOSE,RANDOM 76 mg/dL (70-110); HDL CHOLESTEROL 39 mg/dL (40-60); LDL CHOL (CALC.) 69 mg/dL (0-130); PHOSPHORUS 4.8 mg/dL (2.5-4.9); SODIUM SERUM 140 mmol/L (136-145); TRIGLYCERIDES 194 mg/dL (15-150); UREA NITROGEN, BLOOD 13 mg/dL (7-18)
[2020-02-04] MEDS: OMEGA-3/DHA/EPA/FISH OIL 1,000 MG CAPSULE PO SCH (08:01)
[2020-02-04] MEDS: FOLIC ACID 1 MG TABLET PO SCH (08:01)
[2020-02-04] MEDS: THIAMINE 100 MG TABLET PO SCH (08:01)
[2020-02-04] MEDS: LORazepam 2 MG TABLET PO PRN (08:01)
[2020-02-04] MEDS: OLANZapine 5 MG RAPDIS TABLET PO SCH (08:01)
[2020-02-04] MEDS: MULTIVITAMINS WITH MINERALS, THERAPEUTIC TABLET PO SCH (08:01)
[2020-02-04] MEDS: GuanFACINE HCL 1 MG TABLET PO SCH (08:01)
[2020-02-04 08:09] VITALS: BP 111/79
[2020-02-04] MEDS ORDERED: LITHIUM CARBONATE 300 MG CAPSULE PO SCH (09:00)
[2020-02-04 09:41] LABS: EOSINOPHILS % (MANUAL) 2 % (1-6); LYMPHOCYTES % (MANUAL) 41 % (22-44); MONOCYTES % (MANUAL) 5 % (2-9); SEGMENTED NEUTROPHILS % 52 % (40-70)
== END 2020-02-04 10:45 | disposition home or self-care (01) | DRG 750 ==
LOC: 3EC 19:00
PROVIDERS: ADMIT Psychiatry & Neurology Psychiatry; ATTEND Psychiatry & Neurology Psychiatry
DX: F25.9 Schizoaffective disorder, unspecified (principal); E03.9 Hypothyroidism, unspecified; I10 Essential (primary) hypertension; K59.00 Constipation, unspecified; F41.9 Anxiety disorder, unspecified; K21.9 Gastro-esophageal reflux disease without esophagitis; G47.00 Insomnia, unspecified; E55.9 Vitamin D deficiency, unspecified; Z55.9 Problems related to education and literacy, unspecified; Z59.9 Problem related to housing and economic circumstances, unspecified; Z65.3 Problems related to other legal circumstances
CPT/HCPCS: 83735; 84100; 84443; 85007; 87081

== ENCOUNTER 2020-02-06 11:33 | Inpatient (IN) | payer MEDICAID, OTHER ==
[~2020-02-06] VITALS: Ht 147.3 cm; Wt 63.5 kg
[~2020-02-06 11:33] MED LIST changes: +ACET-2865 PO; +ASCO500 PO; -CHOL100018 PO; -DIPH25 PO; +DIVA-80 PO; -DOCU-350 PO; +ENOX40DI9 SQ; +FOLI-130 PO; +GUAIFDM PO; +GUAN1TAB2 PO; -LEVO50 PO; +LOPE2 PO; +LORA-1001 PO; +MAAL30 PO; +MOM30 PO; +MULT-248 PO; -OLAN5TAB2 PO; +OLAN5TAB30 PO; +PROM-163 PO; -PROP10TA73 PO; -QUET300T2 PO; +THIA100T80 PO; +ZINC220C14 PO
[2020-02-06] MEDS ORDERED: CHOL100018 PO (11:44)
[2020-02-06] MEDS ORDERED: DOCU-350 PO (11:44)
[2020-02-06] MEDS ORDERED: OLAN5TAB2 PO ×2 (11:44)
[2020-02-06] MEDS ORDERED: HYDR25TA82 PO (11:44)
[2020-02-06] MEDS ORDERED: PROP10TA73 PO (11:44)
[2020-02-06] MEDS ORDERED: LEVO50 PO (11:44)
[2020-02-06] MEDS ORDERED: DIPH25CA85 PO (11:44)
[2020-02-06] MEDS ORDERED: NORE-136 PO (11:44)
[2020-02-06 12:15] LABS: BASOPHILS % (AUTO) 0.5 % (0.0-2.0); EOSINOPHILS % (AUTO) 0.1 % (1.0-6.0); HEMATOCRIT 38.7 % (36-46); HEMOGLOBIN 13.1 g/dL (12.0-16.0); LYMPHOCYTES # (AUTO) 1.8 K/uL (1.0-4.8); LYMPHOCYTES % (AUTO) 16.1 % (22.0-44.0); MEAN CORPUSCULAR HEMOGLOBIN 31.6 pg (26.0-34.0); MEAN CORPUSCULAR HGB CONC 33.7 G/dL (31.0-37.0); MEAN CORPUSCULAR VOLUME 94 fL (80-100); MONOCYTES # (AUTO) 1.1 K/uL (0.1-1.0); MONOCYTES % (AUTO) 9.7 % (2.0-9.0); NEUTROPHILS # (AUTO) 8.3 K/uL (1.8-7.7); NEUTROPHILS % (AUTO) 73.6 % (40.0-70.0); PLATELET COUNT (AUTO) 251 K/uL (150-450); RED BLOOD CELL COUNT(AUTO) 4.13 MIL/uL (4.00-5.20); RED CELL DISTRIBUTION WIDTH 14.6 % (11.5-14.5)
[2020-02-06 12:22] LABS: ANION GAP 11 mmol/L (8-16); CALCIUM, TOTAL 9.4 mg/dL (8.8-10.5); CARBON DIOXIDE 25 mmol/L (22-29); CHLORIDE 104 mmol/L (98-107); CREATININE 0.98 mg/dL (0.60-1.30); GLOMERULAR FILTR. RATE CALC > 60 mL/min (>60); GLUCOSE,RANDOM 134 mg/dL (70-110); POTASSIUM 3.7 mmol/L (3.5-5.1); SODIUM SERUM 140 mmol/L (136-145); UREA NITROGEN, BLOOD 24 mg/dL (7-18)
[2020-02-06 12:40] LABS: ALANINE AMINOTRANSFERASE 19 U/L (12-78); ALKALINE PHOSPHATASE 56 U/L (46-116); ASPARTATE AMINOTRANSFERASE 19 U/L (15-37); BILIRUBIN,TOTAL 0.4 mg/dL (0.1-1.0); HCG,QUANTITATIVE < 1 mIU/mL (0-6); TOTAL PROTEIN, SERUM 7.6 g/dL (6.4-8.2)
[2020-02-06 13:29] LABS: COVID AG,FIA SOURCE NASOPHARYNGEAL
[2020-02-06 16:44] VITALS: BP 127/79
[2020-02-06] MEDS: THIAMINE 100 MG TABLET PO SCH (16:54)
[2020-02-06] MEDS: LITHIUM CARBONATE 300 MG CAPSULE PO SCH (16:55)
[2020-02-06] MEDS: OLANZapine 5 MG RAPDIS TABLET PO SCH ×3 (16:55→20:19)
[2020-02-06] MEDS ORDERED: INFLUENZA VIRUS VACCINE QVS 2020-21 (6MO+)/PF 60 MCG/0.5 ML SYRINGE IM ONE (17:30)
[2020-02-06] MEDS ORDERED: PETROLATUM,WHITE 28 GM JELLY TP PRN (18:45)
[2020-02-06] MEDS ORDERED: ACETAMINOPHEN 325 MG TABLET PO PRN (18:45)
[2020-02-06] MEDS ORDERED: MAG HYDROX/AL HYDROX/SIMETH ES 30 ML SUSPENSION UDCUP PO PRN (18:45)
[2020-02-06] MEDS ORDERED: LOPERAMIDE HCL 2 MG CAPSULE PO PRN (18:45)
[2020-02-06] MEDS ORDERED: IBUPROFEN 600 MG TABLET PO PRN (18:45)
[2020-02-06] MEDS ORDERED: ALBUTEROL SULFATE HFA 90 MCG/PUFF 8 GM INHALER IH PRN (18:45)
[2020-02-06] MEDS ORDERED: MAGNESIUM HYDROXIDE SUSPENSION 30 ML UDCUP PO PRN (18:45)
[2020-02-06] MEDS ORDERED: DOCUSATE SODIUM 100 MG CAPSULE PO PRN (18:45)
[2020-02-06] MEDS ORDERED: BENZOCAINE/MENTHOL LOZENGE PO PRN (18:45)
[2020-02-06] MEDS ORDERED: ONDANSETRON HCL 4 MG TABLET PO PRN (18:45)
[2020-02-06] MEDS ORDERED: BACITRACIN 28 GM OINTMENT TP PRN (18:45)
[2020-02-06] MEDS ORDERED: CloNIDine HCL 0.1 MG TABLET PO PRN (18:45)
[2020-02-06] MEDS: GuanFACINE HCL 1 MG TABLET PO SCH (18:47)
[2020-02-06] MEDS: TraZODone HCL 100 MG TABLET PO SCH (20:19)
[2020-02-06] MEDS: DIVALPROEX SODIUM 500 MG ER TABLET PO SCH (20:19)
[2020-02-07 08:03] LABS: BASOPHILS % (AUTO) 0.4 % (0.0-2.0); EOSINOPHILS % (AUTO) 0.2 % (1.0-6.0); HEMATOCRIT 39.8 % (36-46); HEMOGLOBIN 13.3 g/dL (12.0-16.0); LYMPHOCYTES # (AUTO) 3.2 K/uL (1.0-4.8); LYMPHOCYTES % (AUTO) 23.4 % (22.0-44.0); MEAN CORPUSCULAR HEMOGLOBIN 31.2 pg (26.0-34.0); MEAN CORPUSCULAR HGB CONC 33.3 G/dL (31.0-37.0); MEAN CORPUSCULAR VOLUME 94 fL (80-100); MONOCYTES # (AUTO) 1.4 K/uL (0.1-1.0); MONOCYTES % (AUTO) 9.9 % (2.0-9.0); NEUTROPHILS # (AUTO) 9.1 K/uL (1.8-7.7); NEUTROPHILS % (AUTO) 66.1 % (40.0-70.0); PLATELET COUNT (AUTO) 254 K/uL (150-450); RED BLOOD CELL COUNT(AUTO) 4.25 MIL/uL (4.00-5.20); RED CELL DISTRIBUTION WIDTH 14.6 % (11.5-14.5)
[2020-02-07] MEDS: GuanFACINE HCL 1 MG TABLET PO SCH ×4 (08:23→17:00)
[2020-02-07] MEDS: LITHIUM CARBONATE 300 MG CAPSULE PO SCH ×4 (08:23→17:00)
[2020-02-07] MEDS: OMEGA-3/DHA/EPA/FISH OIL 1,000 MG CAPSULE PO SCH ×2 (08:23→09:00)
[2020-02-07] MEDS: THIAMINE 100 MG TABLET PO SCH ×3 (08:23→17:00)
[2020-02-07] MEDS: MULTIVITAMINS WITH MINERALS, THERAPEUTIC TABLET PO SCH (08:24)
[2020-02-07 08:38] LABS: CHOL/HDL RATIO 3.4 (3.9-5.7)
[2020-02-07] MEDS ORDERED: CloZAPine 25 MG TABLET PO SCH (09:00)
[2020-02-07 09:08] VITALS: BP 120/64
[2020-02-07 17:19] VITALS: BP 115/68
[2020-02-07] MEDS: TraZODone HCL 100 MG TABLET PO SCH (21:00)
[2020-02-07] MEDS: DIVALPROEX SODIUM 500 MG ER TABLET PO SCH (21:00)
[2020-02-08 08:14] VITALS: BP 119/71
[2020-02-08] MEDS ORDERED: CloZAPine 25 MG TABLET PO SCH ×2 (09:00→21:00)
[2020-02-08] MEDS: THIAMINE 100 MG TABLET PO SCH ×2 (10:36→16:12)
[2020-02-08] MEDS: LITHIUM CARBONATE 300 MG CAPSULE PO SCH ×3 (10:36→16:12)
[2020-02-08] MEDS: OMEGA-3/DHA/EPA/FISH OIL 1,000 MG CAPSULE PO SCH (10:36)
[2020-02-08] MEDS: MULTIVITAMINS WITH MINERALS, THERAPEUTIC TABLET PO SCH (10:37)
[2020-02-08] MEDS: GuanFACINE HCL 1 MG TABLET PO SCH ×3 (10:37→16:12)
[2020-02-08 16:37] VITALS: BP 104/67
[2020-02-08] MEDS: DIVALPROEX SODIUM 500 MG ER TABLET PO SCH (20:37)
[2020-02-08] MEDS: TraZODone HCL 100 MG TABLET PO SCH (20:37)
[2020-02-08 22:41] LABS: APPEARANCE,URINE CLOUDY (CLEAR); BILIRUBIN,URINE NEGATIVE (NEGATIVE); GLUCOSE, URINE (UA) NEGATIVE (NEGATIVE); KETONES,URINE TRACE mg/dL (NEGATIVE); LEUKOCYTE ESTERASE ,URINE NEGATIVE (NEGATIVE); NITRATE,URINE NEGATIVE (NEGATIVE); OCCULT BLOOD,URINE TRACE (NEGATIVE); PH,URINE 6.5 (5.0-8.0); PROTEIN,URINE TRACE (NEGATIVE)
[2020-02-08 22:43] LABS: AMPHET/METH SCREEN,URINE NEGATIVE (NEGATIVE); BARBITURATE SCREEN, URINE NEGATIVE (NEGATIVE); BENZODIAZEPINES SCREEN,URINE NEGATIVE (NEGATIVE); CANNABINOID SCREEN,URINE NEGATIVE (NEGATIVE); COCAINE SCREEN,URINE NEGATIVE (NEGATIVE); METHADONE SCREEN, URINE NEGATIVE (NEGATIVE); OPIATE SCREEN,URINE NEGATIVE (NEGATIVE)
[2020-02-08 22:47] LABS: PHENCYCLIDINE SCREEN,URINE NEGATIVE (NEGATIVE); RBC,URINE 0-2 /HPF (0-2); WBC,URINE 0-2 /HPF (0-5)
[2020-02-08 22:48] LABS: BACTERIA,URINE Moderate /HPF (None Seen); SQUAMOUS EPITHELIAL CELL,UR Moderate /LPF (None Seen)
[2020-02-08 22:49] LABS: MUCUS,URINE Moderate LPF (None Seen)
[2020-02-09 08:53] VITALS: BP 106/73
[2020-02-09] MEDS ORDERED: CloZAPine 25 MG TABLET PO SCH ×2 (09:00→21:00)
[2020-02-09] MEDS: GuanFACINE HCL 1 MG TABLET PO SCH ×3 (09:39→17:00)
[2020-02-09] MEDS: OMEGA-3/DHA/EPA/FISH OIL 1,000 MG CAPSULE PO SCH (09:39)
[2020-02-09] MEDS: MULTIVITAMINS WITH MINERALS, THERAPEUTIC TABLET PO SCH (09:39)
[2020-02-09] MEDS: LITHIUM CARBONATE 300 MG CAPSULE PO SCH ×3 (09:39→17:00)
[2020-02-09] MEDS: THIAMINE 100 MG TABLET PO SCH ×2 (09:40→17:00)
[2020-02-09] MEDS: LORazepam 2 MG TABLET PO PRN (11:41)
[2020-02-09] MEDS: OLANZapine 5 MG RAPDIS TABLET PO PRN (11:41)
[2020-02-09 17:00] VITALS: BP 108/72
[2020-02-09] MEDS: NITROFURANTOIN/NITROFURAN MAC 100 MG CAPSULE [MACROBID] PO SCH (19:42)
[2020-02-09] MEDS: TraZODone HCL 100 MG TABLET PO SCH (20:15)
[2020-02-09] MEDS: DIVALPROEX SODIUM 500 MG ER TABLET PO SCH (20:15)
[2020-02-10] MEDS: LITHIUM CARBONATE 300 MG CAPSULE PO SCH ×3 (10:23→16:46)
[2020-02-10] MEDS: NITROFURANTOIN/NITROFURAN MAC 100 MG CAPSULE [MACROBID] PO SCH ×2 (10:23→16:46)
[2020-02-10] MEDS: THIAMINE 100 MG TABLET PO SCH ×2 (10:23→16:47)
[2020-02-10] MEDS: GuanFACINE HCL 1 MG TABLET PO SCH ×3 (10:23→16:45)
[2020-02-10] MEDS: MULTIVITAMINS WITH MINERALS, THERAPEUTIC TABLET PO SCH (10:23)
[2020-02-10] MEDS: OMEGA-3/DHA/EPA/FISH OIL 1,000 MG CAPSULE PO SCH (10:24)
[2020-02-10] MEDS: CloZAPine 25 MG TABLET PO SCH ×2 (10:24→21:05)
[2020-02-10 10:50] VITALS: BP 115/81
[2020-02-10 16:15] VITALS: BP 112/78
[2020-02-10] MEDS: LORazepam 2 MG TABLET PO PRN ×3 (16:45→22:03)
[2020-02-10] MEDS: OLANZapine 5 MG RAPDIS TABLET PO PRN ×3 (16:45→22:02)
[2020-02-10] MEDS: DIVALPROEX SODIUM 500 MG ER TABLET PO SCH (21:00)
[2020-02-10] MEDS: TraZODone HCL 100 MG TABLET PO SCH (21:05)
[2020-02-11] MEDS: GuanFACINE HCL 1 MG TABLET PO SCH ×3 (09:00→17:42)
[2020-02-11] MEDS: NITROFURANTOIN/NITROFURAN MAC 100 MG CAPSULE [MACROBID] PO SCH ×2 (09:00→17:43)
[2020-02-11] MEDS: OMEGA-3/DHA/EPA/FISH OIL 1,000 MG CAPSULE PO SCH (09:00)
[2020-02-11] MEDS: CloZAPine 25 MG TABLET PO SCH ×2 (09:00→21:00)
[2020-02-11] MEDS: THIAMINE 100 MG TABLET PO SCH ×2 (09:00→17:44)
[2020-02-11] MEDS: MULTIVITAMINS WITH MINERALS, THERAPEUTIC TABLET PO SCH (09:00)
[2020-02-11] MEDS: LITHIUM CARBONATE 300 MG CAPSULE PO SCH ×3 (09:00→17:43)
[2020-02-11 16:15] VITALS: BP 109/64
[2020-02-11] MEDS: VALPROIC ACID 250 MG/5 ML SYRUP UDCUP PO SCH (21:00)
[2020-02-11] MEDS: TraZODone HCL 100 MG TABLET PO SCH (21:00)
[2020-02-11] MEDS ORDERED: HALOPERIDOL LACTATE 5 MG/ML VIAL ONE (23:04)
[2020-02-11] MEDS ORDERED: LORazepam 2 MG/ML VIAL ONE (23:04)
[2020-02-11] MEDS ORDERED: LORazepam 2 MG/ML VIAL IM ONE (23:15)
[2020-02-11] MEDS ORDERED: DiphenhydrAMINE HCL 50 MG/ML VIAL IM ONE (23:15)
[2020-02-11] MEDS ORDERED: HALOPERIDOL LACTATE 5 MG/ML VIAL IM ONE (23:15)
[2020-02-12] MEDS ORDERED: CloZAPine 25 MG TABLET PO SCH (09:00)
[2020-02-12] MEDS: CIPROFLOXACIN HCL 250 MG TABLET PO SCH ×2 (09:38→16:50)
[2020-02-12] MEDS: GuanFACINE HCL 1 MG TABLET PO SCH ×3 (09:39→16:50)
[2020-02-12] MEDS: OLANZapine 5 MG RAPDIS TABLET PO PRN (09:41)
[2020-02-12] MEDS: LITHIUM CARBONATE 300 MG CAPSULE PO SCH ×4 (09:41→20:20)
[2020-02-12] MEDS: OMEGA-3/DHA/EPA/FISH OIL 1,000 MG CAPSULE PO SCH (09:42)
[2020-02-12] MEDS: THIAMINE 100 MG TABLET PO SCH ×2 (09:42→16:50)
[2020-02-12] MEDS: MULTIVITAMINS WITH MINERALS, THERAPEUTIC TABLET PO SCH (09:43)
[2020-02-12] MEDS ORDERED: LORazepam 2 MG/ML VIAL IM ONE (10:30)
[2020-02-12] MEDS ORDERED: DiphenhydrAMINE HCL 50 MG/ML VIAL IM ONE (10:30)
[2020-02-12] MEDS ORDERED: HALOPERIDOL LACTATE 5 MG/ML VIAL IM SCH (10:30)
[2020-02-12] MEDS: LORazepam 2 MG TABLET PO PRN (13:10)
[2020-02-12 16:01] LABS: LITHIUM 0.69 mmol/L (0.60-1.20)
[2020-02-12 16:02] LABS: VALPROIC ACID < 3 mcg/mL (50-100)
[2020-02-12 17:10] VITALS: BP 121/75
[2020-02-12] MEDS: VALPROIC ACID 250 MG/5 ML SYRUP UDCUP PO SCH (20:05)
[2020-02-12] MEDS: TraZODone HCL 100 MG TABLET PO SCH (20:05)
[2020-02-12] MEDS ORDERED: CloZAPine 100 MG TABLET PO SCH (21:00)
[2020-02-13] MEDS ORDERED: CloZAPine 25 MG TABLET PO SCH (09:00)
[2020-02-13] MEDS: CIPROFLOXACIN HCL 250 MG TABLET PO SCH ×2 (09:11→18:50)
[2020-02-13] MEDS: OMEGA-3/DHA/EPA/FISH OIL 1,000 MG CAPSULE PO SCH (09:11)
[2020-02-13] MEDS: THIAMINE 100 MG TABLET PO SCH ×2 (09:11→18:50)
[2020-02-13] MEDS: GuanFACINE HCL 1 MG TABLET PO SCH ×2 (09:13→14:02)
[2020-02-13] MEDS: LITHIUM CARBONATE 300 MG CAPSULE PO SCH ×4 (09:13→20:28)
[2020-02-13] MEDS: MULTIVITAMINS WITH MINERALS, THERAPEUTIC TABLET PO SCH (09:14)
[2020-02-13] MEDS: LORazepam 2 MG TABLET PO PRN (10:05)
[2020-02-13] MEDS: OLANZapine 5 MG RAPDIS TABLET PO PRN (10:05)
[2020-02-13] MEDS ORDERED: DiphenhydrAMINE HCL 50 MG/ML VIAL IM ONE (10:30)
[2020-02-13] MEDS ORDERED: HALOPERIDOL LACTATE 5 MG/ML VIAL IM ONE (10:30)
[2020-02-13 12:46] VITALS: BP 139/76
[2020-02-13 16:19] VITALS: BP 119/82
[2020-02-13] MEDS: TraZODone HCL 100 MG TABLET PO SCH (20:28)
[2020-02-13] MEDS: VALPROIC ACID 250 MG/5 ML SYRUP UDCUP PO SCH (20:28)
[2020-02-13] MEDS ORDERED: CloZAPine 100 MG TABLET PO SCH (21:00)
[2020-02-14 06:44] LABS: BASOPHILS % (AUTO) 0.9 % (0.0-2.0); EOSINOPHILS % (AUTO) 4.4 % (1.0-6.0); HEMATOCRIT 39.1 % (36-46); HEMOGLOBIN 13.3 g/dL (12.0-16.0); LYMPHOCYTES # (AUTO) 3.6 K/uL (1.0-4.8); LYMPHOCYTES % (AUTO) 45.5 % (22.0-44.0); MEAN CORPUSCULAR HEMOGLOBIN 31.8 pg (26.0-34.0); MEAN CORPUSCULAR HGB CONC 33.9 G/dL (31.0-37.0); MEAN CORPUSCULAR VOLUME 94 fL (80-100); MONOCYTES # (AUTO) 0.6 K/uL (0.1-1.0); MONOCYTES % (AUTO) 7.4 % (2.0-9.0); NEUTROPHILS # (AUTO) 3.3 K/uL (1.8-7.7); NEUTROPHILS % (AUTO) 41.8 % (40.0-70.0); PLATELET COUNT (AUTO) 204 K/uL (150-450); RED BLOOD CELL COUNT(AUTO) 4.18 MIL/uL (4.00-5.20); RED CELL DISTRIBUTION WIDTH 13.8 % (11.5-14.5)
[2020-02-14] MEDS ORDERED: CloZAPine 25 MG TABLET PO SCH (09:00)
[2020-02-14] MEDS: CIPROFLOXACIN HCL 250 MG TABLET PO SCH ×2 (10:20→17:00)
[2020-02-14] MEDS: GuanFACINE HCL 1 MG TABLET PO SCH ×3 (10:20→17:00)
[2020-02-14] MEDS: THIAMINE 100 MG TABLET PO SCH ×2 (10:22→17:00)
[2020-02-14] MEDS: LITHIUM CARBONATE 300 MG CAPSULE PO SCH ×4 (10:22→20:03)
[2020-02-14] MEDS: OMEGA-3/DHA/EPA/FISH OIL 1,000 MG CAPSULE PO SCH (10:23)
[2020-02-14] MEDS: MULTIVITAMINS WITH MINERALS, THERAPEUTIC TABLET PO SCH (10:23)
[2020-02-14] MEDS: LORazepam 2 MG TABLET PO PRN ×2 (10:26→16:04)
[2020-02-14] MEDS: OLANZapine 5 MG RAPDIS TABLET PO PRN ×2 (10:26→15:50)
[2020-02-14 11:00] VITALS: BP 101/59
[2020-02-14 17:00] VITALS: BP 107/68
[2020-02-14] MEDS: VALPROIC ACID 250 MG/5 ML SYRUP UDCUP PO SCH (20:02)
[2020-02-14] MEDS: TraZODone HCL 100 MG TABLET PO SCH (20:03)
[2020-02-14] MEDS ORDERED: CloZAPine 100 MG TABLET PO SCH (21:00)
[2020-02-15] MEDS: CloZAPine 100 MG TABLET PO SCH ×2 (11:29→22:04)
[2020-02-15] MEDS: OLANZapine 5 MG RAPDIS TABLET PO PRN (11:29)
[2020-02-15] MEDS: GuanFACINE HCL 1 MG TABLET PO SCH ×3 (11:29→18:03)
[2020-02-15] MEDS: OMEGA-3/DHA/EPA/FISH OIL 1,000 MG CAPSULE PO SCH (11:29)
[2020-02-15 11:30] VITALS: BP 93/59
[2020-02-15] MEDS: LITHIUM CARBONATE 300 MG CAPSULE PO SCH ×4 (11:30→22:04)
[2020-02-15] MEDS: MULTIVITAMINS WITH MINERALS, THERAPEUTIC TABLET PO SCH (11:30)
[2020-02-15] MEDS: THIAMINE 100 MG TABLET PO SCH ×2 (11:30→18:03)
[2020-02-15] MEDS: LORazepam 2 MG TABLET PO PRN (12:40)
[2020-02-15 16:07] VITALS: BP 130/79
[2020-02-15] MEDS: VALPROIC ACID 250 MG/5 ML SYRUP UDCUP PO SCH (22:03)
[2020-02-15] MEDS: TraZODone HCL 100 MG TABLET PO SCH (22:04)
[2020-02-16] MEDS: MULTIVITAMINS WITH MINERALS, THERAPEUTIC TABLET PO SCH (10:44)
[2020-02-16] MEDS: THIAMINE 100 MG TABLET PO SCH ×2 (10:44→17:35)
[2020-02-16] MEDS: OMEPRAZOLE 20 MG CAPSULE PO PRN (10:44)
[2020-02-16] MEDS: LITHIUM CARBONATE 300 MG CAPSULE PO SCH ×4 (10:44→21:04)
[2020-02-16] MEDS: CloZAPine 100 MG TABLET PO SCH ×2 (10:44→21:02)
[2020-02-16] MEDS: OMEGA-3/DHA/EPA/FISH OIL 1,000 MG CAPSULE PO SCH (10:44)
[2020-02-16] MEDS: GuanFACINE HCL 1 MG TABLET PO SCH ×3 (10:45→17:34)
[2020-02-16 11:09] VITALS: BP 106/74
[2020-02-16 16:04] VITALS: BP 96/64
[2020-02-16] MEDS: TraZODone HCL 100 MG TABLET PO SCH (21:02)
[2020-02-16] MEDS: VALPROIC ACID 250 MG/5 ML SYRUP UDCUP PO SCH (21:03)
[2020-02-17] MEDS: GuanFACINE HCL 1 MG TABLET PO SCH ×3 (08:40→17:00)
[2020-02-17] MEDS: LITHIUM CARBONATE 300 MG CAPSULE PO SCH ×4 (08:41→21:00)
[2020-02-17] MEDS: OMEGA-3/DHA/EPA/FISH OIL 1,000 MG CAPSULE PO SCH (08:41)
[2020-02-17] MEDS: THIAMINE 100 MG TABLET PO SCH ×2 (08:41→17:00)
[2020-02-17] MEDS: MULTIVITAMINS WITH MINERALS, THERAPEUTIC TABLET PO SCH (08:41)
[2020-02-17 08:50] VITALS: BP 99/60
[2020-02-17] MEDS ORDERED: CloZAPine 25 MG TABLET PO SCH (09:00)
[2020-02-17 16:08] VITALS: BP 84/59
[2020-02-17] MEDS ORDERED: CloZAPine 100 MG TABLET PO SCH (21:00)
[2020-02-17] MEDS: TraZODone HCL 100 MG TABLET PO SCH (21:00)
[2020-02-17] MEDS: VALPROIC ACID 250 MG/5 ML SYRUP UDCUP PO SCH (21:00)
[2020-02-18 06:31] LABS: BASOPHILS % (AUTO) 0.7 % (0.0-2.0); EOSINOPHILS % (AUTO) 5.8 % (1.0-6.0); HEMATOCRIT 37.5 % (36-46); HEMOGLOBIN 13.3 g/dL (12.0-16.0); LYMPHOCYTES % (AUTO) 37.3 % (22.0-44.0); MEAN CORPUSCULAR HGB CONC 35.4 G/dL (31.0-37.0); MEAN CORPUSCULAR VOLUME 93 fL (80-100); MONOCYTES # (AUTO) 0.7 K/uL (0.1-1.0); MONOCYTES % (AUTO) 8.2 % (2.0-9.0); NEUTROPHILS # (AUTO) 3.9 K/uL (1.8-7.7); PLATELET COUNT (AUTO) 197 K/uL (150-450); RED BLOOD CELL COUNT(AUTO) 4.02 MIL/uL (4.00-5.20); RED CELL DISTRIBUTION WIDTH 13.4 % (11.5-14.5)
[2020-02-18 07:08] LABS: ALANINE AMINOTRANSFERASE 16 U/L (12-78); ALBUMIN 2.9 g/dL (3.4-5.0); ALKALINE PHOSPHATASE 75 U/L (46-116); ANION GAP 9 mmol/L (8-16); ASPARTATE AMINOTRANSFERASE 11 U/L (15-37); BILIRUBIN,TOTAL 0.4 mg/dL (0.1-1.0); CALCIUM, TOTAL 8.9 mg/dL (8.8-10.5); CARBON DIOXIDE 26 mmol/L (22-29); CHLORIDE 104 mmol/L (98-107); CREATININE 0.75 mg/dL (0.60-1.30); GLOMERULAR FILTR. RATE CALC > 60 mL/min (>60); GLUCOSE,RANDOM 97 mg/dL (70-110); PHOSPHORUS 4.7 mg/dL (2.5-4.9); POTASSIUM 4.2 mmol/L (3.5-5.1); SODIUM SERUM 139 mmol/L (136-145); THYROID STIMULATING HORMONE 9.88 uIU/mL (0.36-3.74); TOTAL PROTEIN, SERUM 5.8 g/dL (6.4-8.2); UREA NITROGEN, BLOOD 9 mg/dL (7-18)
[2020-02-18] MEDS ORDERED: CloZAPine 25 MG TABLET PO SCH (09:00)
[2020-02-18 09:10] VITALS: BP 95/58
[2020-02-18] MEDS: GuanFACINE HCL 1 MG TABLET PO SCH ×3 (10:09→16:48)
[2020-02-18] MEDS: OMEPRAZOLE 20 MG CAPSULE PO PRN (10:10)
[2020-02-18] MEDS: LITHIUM CARBONATE 300 MG CAPSULE PO SCH ×4 (10:10→20:20)
[2020-02-18] MEDS: THIAMINE 100 MG TABLET PO SCH ×2 (10:10→16:48)
[2020-02-18] MEDS: OMEGA-3/DHA/EPA/FISH OIL 1,000 MG CAPSULE PO SCH (10:17)
[2020-02-18] MEDS: MULTIVITAMINS WITH MINERALS, THERAPEUTIC TABLET PO SCH (10:17)
[2020-02-18 16:14] VITALS: BP 105/66
[2020-02-18 16:45] VITALS: BP 98/67
[2020-02-18 20:17] VITALS: BP 111/70
[2020-02-18] MEDS: VALPROIC ACID 250 MG/5 ML SYRUP UDCUP PO SCH (20:20)
[2020-02-18] MEDS: TraZODone HCL 100 MG TABLET PO SCH (20:20)
[2020-02-18] MEDS ORDERED: CloZAPine 100 MG TABLET PO SCH (21:00)
[2020-02-19] MEDS ORDERED: LEVOTHYROXINE SODIUM 25 MCG TABLET PO SCH (07:00)
[2020-02-19] MEDS ORDERED: LEVOTHYROXINE SODIUM 100 MCG TABLET PO SCH (07:00)
[2020-02-19] MEDS: OMEGA-3/DHA/EPA/FISH OIL 1,000 MG CAPSULE PO SCH (09:00)
[2020-02-19] MEDS: LORazepam 2 MG TABLET PO PRN (09:09)
[2020-02-19] MEDS: LITHIUM CARBONATE 300 MG CAPSULE PO SCH ×4 (09:09→21:14)
[2020-02-19] MEDS: VALPROIC ACID 250 MG/5 ML SYRUP UDCUP PO SCH ×4 (09:09→21:14)
[2020-02-19] MEDS: CloZAPine 100 MG TABLET PO SCH (09:10)
[2020-02-19] MEDS: THIAMINE 100 MG TABLET PO SCH ×2 (09:10→16:15)
[2020-02-19] MEDS: OLANZapine 5 MG RAPDIS TABLET PO PRN (09:10)
[2020-02-19] MEDS: GuanFACINE HCL 1 MG TABLET PO SCH ×3 (09:11→16:19)
[2020-02-19] MEDS: MULTIVITAMINS WITH MINERALS, THERAPEUTIC TABLET PO SCH (09:13)
[2020-02-19 16:27] VITALS: BP 103/60
[2020-02-19] MEDS ORDERED: CloZAPine 100 MG TABLET PO SCH (21:00)
[2020-02-19] MEDS: TraZODone HCL 100 MG TABLET PO SCH (21:14)
[2020-02-19 21:21] VITALS: BP 101/62
[2020-02-20 08:26] VITALS: BP 99/68
[2020-02-20] MEDS: CloZAPine 100 MG TABLET PO SCH ×2 (10:59→21:07)
[2020-02-20] MEDS: LITHIUM CARBONATE 300 MG CAPSULE PO SCH ×4 (10:59→21:08)
[2020-02-20] MEDS: VALPROIC ACID 250 MG/5 ML SYRUP UDCUP PO SCH ×4 (10:59→21:07)
[2020-02-20] MEDS: GuanFACINE HCL 1 MG TABLET PO SCH ×3 (10:59→16:50)
[2020-02-20] MEDS: OMEGA-3/DHA/EPA/FISH OIL 1,000 MG CAPSULE PO SCH (10:59)
[2020-02-20] MEDS: THIAMINE 100 MG TABLET PO SCH ×2 (10:59→16:50)
[2020-02-20] MEDS: LORazepam 2 MG TABLET PO PRN (11:00)
[2020-02-20] MEDS: MULTIVITAMINS WITH MINERALS, THERAPEUTIC TABLET PO SCH (11:01)
[2020-02-20 15:27] LABS: APPEARANCE,URINE CLOUDY (CLEAR); BILIRUBIN,URINE NEGATIVE (NEGATIVE); GLUCOSE, URINE (UA) 500 mg/dL (NEGATIVE); KETONES,URINE TRACE mg/dL (NEGATIVE); LEUKOCYTE ESTERASE ,URINE NEGATIVE (NEGATIVE); NITRATE,URINE NEGATIVE (NEGATIVE); OCCULT BLOOD,URINE NEGATIVE (NEGATIVE); PROTEIN,URINE NEGATIVE (NEGATIVE); UROBILINOGEN,URINE 0.2 mg/dL (<=1.0)
[2020-02-20 16:07] LABS: BACTERIA,URINE Moderate /HPF (None Seen); SQUAMOUS EPITHELIAL CELL,UR Moderate /LPF (None Seen)
[2020-02-20 16:08] LABS: RBC,URINE None Seen /HPF (0-2); WBC,URINE 0-2 /HPF (0-5)
[2020-02-20 16:56] VITALS: BP 127/80
[2020-02-20] MEDS: TraZODone HCL 100 MG TABLET PO SCH (21:08)
[2020-02-21 06:41] LABS: BASOPHILS % (AUTO) 0.6 % (0.0-2.0); HEMATOCRIT 37.6 % (36-46); HEMOGLOBIN 12.8 g/dL (12.0-16.0); LYMPHOCYTES # (AUTO) 2.2 K/uL (1.0-4.8); LYMPHOCYTES % (AUTO) 22.9 % (22.0-44.0); MEAN CORPUSCULAR HEMOGLOBIN 31.8 pg (26.0-34.0); MEAN CORPUSCULAR HGB CONC 33.9 G/dL (31.0-37.0); MEAN CORPUSCULAR VOLUME 94 fL (80-100); MONOCYTES # (AUTO) 0.7 K/uL (0.1-1.0); MONOCYTES % (AUTO) 6.9 % (2.0-9.0); NEUTROPHILS # (AUTO) 6.6 K/uL (1.8-7.7); NEUTROPHILS % (AUTO) 67.6 % (40.0-70.0); PLATELET COUNT (AUTO) 199 K/uL (150-450); RED BLOOD CELL COUNT(AUTO) 4.02 MIL/uL (4.00-5.20); RED CELL DISTRIBUTION WIDTH 13.5 % (11.5-14.5)
[2020-02-21 06:49] LABS: HEMOGLOBIN A1C 4.7 % (3.8-5.6)
[2020-02-21 06:52] LABS: LITHIUM 0.89 mmol/L (0.60-1.20)
[2020-02-21 07:09] LABS: ALANINE AMINOTRANSFERASE 16 U/L (12-78); ALKALINE PHOSPHATASE 73 U/L (46-116); ANION GAP 9 mmol/L (8-16); ASPARTATE AMINOTRANSFERASE 11 U/L (15-37); BILIRUBIN,TOTAL 0.3 mg/dL (0.1-1.0); CALCIUM, TOTAL 9.6 mg/dL (8.8-10.5); CARBON DIOXIDE 27 mmol/L (22-29); CHLORIDE 106 mmol/L (98-107); CREATININE 0.75 mg/dL (0.60-1.30); FREE T4 (FREE THYROXINE) 0.77 ng/dL (0.76-1.46); GLOMERULAR FILTR. RATE CALC > 60 mL/min (>60); GLUCOSE,RANDOM 100 mg/dL (70-110); POTASSIUM 3.9 mmol/L (3.5-5.1); SODIUM SERUM 142 mmol/L (136-145); THYROID STIMULATING HORMONE 5.45 uIU/mL (0.36-3.74); TOTAL PROTEIN, SERUM 6.6 g/dL (6.4-8.2); UREA NITROGEN, BLOOD 8 mg/dL (7-18); VALPROIC ACID 61 mcg/mL (50-100)
[2020-02-21] MEDS: GuanFACINE HCL 1 MG TABLET PO SCH ×3 (10:16→16:25)
[2020-02-21] MEDS: THIAMINE 100 MG TABLET PO SCH ×2 (10:21→16:26)
[2020-02-21] MEDS: VALPROIC ACID 250 MG/5 ML SYRUP UDCUP PO SCH ×4 (10:21→21:04)
[2020-02-21] MEDS: MULTIVITAMINS WITH MINERALS, THERAPEUTIC TABLET PO SCH (10:21)
[2020-02-21] MEDS: LITHIUM CARBONATE 300 MG CAPSULE PO SCH ×4 (10:21→21:02)
[2020-02-21] MEDS: CloZAPine 100 MG TABLET PO SCH ×2 (10:21→21:03)
[2020-02-21] MEDS: OMEGA-3/DHA/EPA/FISH OIL 1,000 MG CAPSULE PO SCH (10:21)
[2020-02-21] MEDS: LORazepam 2 MG TABLET PO PRN (11:26)
[2020-02-21] MEDS: OLANZapine 5 MG RAPDIS TABLET PO PRN (11:26)
[2020-02-21 11:47] VITALS: BP 125/95
[2020-02-21 16:07] VITALS: BP 110/80
[2020-02-21] MEDS: TraZODone HCL 100 MG TABLET PO SCH (21:03)
[2020-02-22] MEDS: OLANZapine 5 MG RAPDIS TABLET PO PRN (09:35)
[2020-02-22] MEDS: LORazepam 2 MG TABLET PO PRN (09:49)
[2020-02-22] MEDS: THIAMINE 100 MG TABLET PO SCH ×2 (09:49→17:54)
[2020-02-22] MEDS: LITHIUM CARBONATE 300 MG CAPSULE PO SCH ×4 (09:50→21:21)
[2020-02-22] MEDS: VALPROIC ACID 250 MG/5 ML SYRUP UDCUP PO SCH ×4 (09:50→21:21)
[2020-02-22] MEDS: GuanFACINE HCL 1 MG TABLET PO SCH ×3 (09:50→17:54)
[2020-02-22] MEDS: MULTIVITAMINS WITH MINERALS, THERAPEUTIC TABLET PO SCH (09:51)
[2020-02-22] MEDS: OMEGA-3/DHA/EPA/FISH OIL 1,000 MG CAPSULE PO SCH (09:51)
[2020-02-22] MEDS: CloZAPine 100 MG TABLET PO SCH ×2 (09:54→21:21)
[2020-02-22 16:00] VITALS: BP 109/70
[2020-02-22] MEDS: TraZODone HCL 100 MG TABLET PO SCH (21:21)
[2020-02-23] VITALS: BP 114/75
[2020-02-23] MEDS: ZOLPIDEM TARTRATE 10 MG TABLET PO PRN (00:09)
[2020-02-23 08:06] VITALS: BP 101/68
[2020-02-23] MEDS: GuanFACINE HCL 1 MG TABLET PO SCH ×3 (09:37→17:49)
[2020-02-23] MEDS: THIAMINE 100 MG TABLET PO SCH ×2 (10:01→17:49)
[2020-02-23] MEDS: OLANZapine 5 MG RAPDIS TABLET PO PRN ×2 (10:01→12:19)
[2020-02-23] MEDS: VALPROIC ACID 250 MG/5 ML SYRUP UDCUP PO SCH ×4 (10:01→21:01)
[2020-02-23] MEDS: LITHIUM CARBONATE 300 MG CAPSULE PO SCH ×4 (10:01→21:01)
[2020-02-23] MEDS: MULTIVITAMINS WITH MINERALS, THERAPEUTIC TABLET PO SCH (10:01)
[2020-02-23] MEDS: CloZAPine 100 MG TABLET PO SCH ×2 (10:01→21:01)
[2020-02-23] MEDS: OMEGA-3/DHA/EPA/FISH OIL 1,000 MG CAPSULE PO SCH (10:03)
[2020-02-23] MEDS: LORazepam 2 MG TABLET PO PRN (12:19)
[2020-02-23 16:30] VITALS: BP 105/70
[2020-02-23] MEDS: TraZODone HCL 100 MG TABLET PO SCH (21:01)
[2020-02-24] MEDS: CloZAPine 100 MG TABLET PO SCH ×2 (10:47→21:22)
[2020-02-24] MEDS: THIAMINE 100 MG TABLET PO SCH ×2 (10:47→17:07)
[2020-02-24] MEDS: OMEGA-3/DHA/EPA/FISH OIL 1,000 MG CAPSULE PO SCH (10:47)
[2020-02-24] MEDS: VALPROIC ACID 250 MG/5 ML SYRUP UDCUP PO SCH ×4 (10:47→21:21)
[2020-02-24] MEDS: LITHIUM CARBONATE 300 MG CAPSULE PO SCH ×4 (10:47→21:21)
[2020-02-24] MEDS: GuanFACINE HCL 1 MG TABLET PO SCH ×3 (10:48→17:07)
[2020-02-24] MEDS: MULTIVITAMINS WITH MINERALS, THERAPEUTIC TABLET PO SCH (10:50)
[2020-02-24] MEDS: LORazepam 2 MG TABLET PO PRN (14:37)
[2020-02-24 16:06] VITALS: BP 115/84
[2020-02-24] MEDS: TraZODone HCL 100 MG TABLET PO SCH (21:22)
[2020-02-25] MEDS: LORazepam 2 MG TABLET PO PRN ×2 (00:02→07:45)
[2020-02-25] MEDS: ZOLPIDEM TARTRATE 10 MG TABLET PO PRN (00:02)
[2020-02-25 00:05] VITALS: BP 115/76
[2020-02-25] MEDS: LEVOTHYROXINE SODIUM 50 MCG TABLET PO SCH (07:00)
[2020-02-25] MEDS: VALPROIC ACID 250 MG/5 ML SYRUP UDCUP PO SCH ×4 (07:44→20:24)
[2020-02-25] MEDS: GuanFACINE HCL 1 MG TABLET PO SCH ×3 (07:44→18:12)
[2020-02-25] MEDS: CloZAPine 100 MG TABLET PO SCH ×2 (07:44→20:24)
[2020-02-25] MEDS: THIAMINE 100 MG TABLET PO SCH ×2 (07:45→18:11)
[2020-02-25] MEDS: OLANZapine 5 MG RAPDIS TABLET PO PRN (07:45)
[2020-02-25] MEDS: MULTIVITAMINS WITH MINERALS, THERAPEUTIC TABLET PO SCH (07:45)
[2020-02-25] MEDS: OMEGA-3/DHA/EPA/FISH OIL 1,000 MG CAPSULE PO SCH (07:45)
[2020-02-25] MEDS: LITHIUM CARBONATE 300 MG CAPSULE PO SCH ×4 (07:46→20:25)
[2020-02-25 08:08] VITALS: BP 130/88
[2020-02-25] MEDS: OMEPRAZOLE 20 MG CAPSULE PO PRN (09:21)
[2020-02-25 16:04] VITALS: BP 109/78
[2020-02-25] MEDS: TraZODone HCL 100 MG TABLET PO SCH (20:24)
[2020-02-26] MEDS: ZOLPIDEM TARTRATE 10 MG TABLET PO PRN ×2 (01:50→23:30)
[2020-02-26] MEDS: LORazepam 2 MG TABLET PO PRN ×3 (01:50→23:30)
[2020-02-26] MEDS: LEVOTHYROXINE SODIUM 50 MCG TABLET PO SCH (07:01)
[2020-02-26] MEDS: MULTIVITAMINS WITH MINERALS, THERAPEUTIC TABLET PO SCH (07:52)
[2020-02-26] MEDS: GuanFACINE HCL 1 MG TABLET PO SCH ×3 (07:52→17:39)
[2020-02-26] MEDS: VALPROIC ACID 250 MG/5 ML SYRUP UDCUP PO SCH ×4 (07:52→21:50)
[2020-02-26] MEDS: OLANZapine 5 MG RAPDIS TABLET PO PRN (07:52)
[2020-02-26] MEDS: THIAMINE 100 MG TABLET PO SCH ×2 (07:52→17:39)
[2020-02-26] MEDS: CloZAPine 100 MG TABLET PO SCH ×2 (07:52→21:51)
[2020-02-26] MEDS: LITHIUM CARBONATE 300 MG CAPSULE PO SCH ×4 (07:52→21:51)
[2020-02-26] MEDS: OMEGA-3/DHA/EPA/FISH OIL 1,000 MG CAPSULE PO SCH (07:52)
[2020-02-26 08:36] VITALS: BP 131/84
[2020-02-26] MEDS: OMEPRAZOLE 20 MG CAPSULE PO PRN (11:36)
[2020-02-26 16:44] VITALS: BP 109/70
[2020-02-26] MEDS: TraZODone HCL 100 MG TABLET PO SCH (21:50)
[2020-02-27] MEDS: LEVOTHYROXINE SODIUM 50 MCG TABLET PO SCH (06:36)
[2020-02-27 08:16] VITALS: BP 110/82
[2020-02-27] MEDS: GuanFACINE HCL 1 MG TABLET PO SCH ×3 (09:42→17:24)
[2020-02-27] MEDS: VALPROIC ACID 250 MG/5 ML SYRUP UDCUP PO SCH ×4 (09:57→20:28)
[2020-02-27] MEDS: CloZAPine 100 MG TABLET PO SCH ×2 (09:57→20:28)
[2020-02-27] MEDS: LITHIUM CARBONATE 300 MG CAPSULE PO SCH ×4 (09:57→20:28)
[2020-02-27] MEDS: MULTIVITAMINS WITH MINERALS, THERAPEUTIC TABLET PO SCH (09:57)
[2020-02-27] MEDS: OMEGA-3/DHA/EPA/FISH OIL 1,000 MG CAPSULE PO SCH (09:57)
[2020-02-27] MEDS: OLANZapine 5 MG RAPDIS TABLET PO PRN (09:57)
[2020-02-27] MEDS: LORazepam 2 MG TABLET PO PRN (09:57)
[2020-02-27] MEDS: THIAMINE 100 MG TABLET PO SCH ×2 (10:01→17:25)
[2020-02-27 16:30] VITALS: BP 147/84
[2020-02-27] MEDS: TraZODone HCL 100 MG TABLET PO SCH (20:28)
[2020-02-28] MEDS: LEVOTHYROXINE SODIUM 50 MCG TABLET PO SCH (07:05)
[2020-02-28] MEDS: LORazepam 2 MG TABLET PO PRN (07:49)
[2020-02-28] MEDS: OLANZapine 5 MG RAPDIS TABLET PO PRN (07:49)
[2020-02-28 08:21] VITALS: BP 131/82
[2020-02-28] MEDS: GuanFACINE HCL 1 MG TABLET PO SCH ×2 (08:32→13:28)
[2020-02-28] MEDS: LITHIUM CARBONATE 300 MG CAPSULE PO SCH ×2 (08:32→13:28)
[2020-02-28] MEDS: MULTIVITAMINS WITH MINERALS, THERAPEUTIC TABLET PO SCH (08:32)
[2020-02-28] MEDS: OMEGA-3/DHA/EPA/FISH OIL 1,000 MG CAPSULE PO SCH (08:32)
[2020-02-28] MEDS: THIAMINE 100 MG TABLET PO SCH (08:32)
[2020-02-28] MEDS: CloZAPine 100 MG TABLET PO SCH (08:33)
[2020-02-28] MEDS: VALPROIC ACID 250 MG/5 ML SYRUP UDCUP PO SCH ×2 (08:33→13:27)
[2020-02-28] MEDS ORDERED: CLOZ100T31 PO ×2 (11:38)
[2020-02-28] MEDS ORDERED: LITH300C3 PO (11:38)
[2020-02-28] MEDS ORDERED: TRAZ-257 PO (11:38)
[2020-02-28] MEDS ORDERED: OMEG-135 PO (11:38)
[2020-02-28] MEDS ORDERED: VALP250S23 PO (11:38)
[2020-02-28 12:22] LABS: COVID AG,FIA SOURCE NASAL SWAB
[2020-02-28] MEDS ORDERED: GUAN1TAB22 PO (13:16)
== END 2020-02-28 15:15 | disposition home or self-care (01) | DRG 750 ==
LOC: EMS 11:35 → 3EC 14:06
PROVIDERS: ADMIT Psychiatry & Neurology Psychiatry; ATTEND Psychiatry & Neurology Psychiatry
DX: F20.9 Schizophrenia, unspecified (principal); D72.829 Elevated white blood cell count, unspecified; E03.9 Hypothyroidism, unspecified; I10 Essential (primary) hypertension; F41.9 Anxiety disorder, unspecified; K59.00 Constipation, unspecified; G47.00 Insomnia, unspecified; Z20.828 Contact with and (suspected) exposure to other viral communicable diseases; Z91.19 Patient's noncompliance with other medical treatment and regimen; Z79.899 Other long term (current) drug therapy
CPT/HCPCS: 80159; 83036; 83735; 84100; 84439; 84443; 87081; 87086; 87426; G0480; J1200; J1630; J2060; Q0162; 36415-L1; 36415-TC; 71046; 71046-TC; 80061-TC; U0003

== ENCOUNTER 2020-03-06 11:27 | Inpatient (IN) | payer MEDICAID, OTHER ==
[~2020-03-06] VITALS: Ht 147.3 cm; Wt 67.1 kg
[~2020-03-06 11:27] MED LIST changes: -ACET-2865 PO; -ASCO500 PO; +CLOZ100T31 PO; -DIVA-80 PO; -ENOX40DI9 SQ; -FOLI-130 PO; -GUAIFDM PO; -GUAN1TAB2 PO; +GUAN1TAB22 PO; +LEVO50 PO; +LITH300C3 PO; -LOPE2 PO; -LORA-1001 PO; -MAAL30 PO; -MOM30 PO; -MULT-248 PO; -OLAN5TAB30 PO; -PROM-163 PO; -QUET100T PO; -QUET200T PO; -THIA100T80 PO; +VALP250S23 PO; -ZINC220C14 PO
[2020-03-06] MEDS ORDERED: ALPR0.5T8 PO (11:34)
[2020-03-06] MEDS ORDERED: BIRTH CONTROL PO (11:34)
[2020-03-06] MEDS ORDERED: GUAN1TAB22 PO (11:34)
[2020-03-06] MEDS ORDERED: CLOZ100T32 PO (11:34)
[2020-03-06 11:56] LABS: BASOPHILS % (AUTO) 0.3 % (0.0-2.0); EOSINOPHILS % (AUTO) 1.2 % (1.0-6.0); HEMATOCRIT 43.3 % (36-46); HEMOGLOBIN 14.7 g/dL (12.0-16.0); LYMPHOCYTES # (AUTO) 2.2 K/uL (1.0-4.8); LYMPHOCYTES % (AUTO) 18.9 % (22.0-44.0); MEAN CORPUSCULAR HGB CONC 33.9 G/dL (31.0-37.0); MEAN CORPUSCULAR VOLUME 95 fL (80-100); MONOCYTES % (AUTO) 8.3 % (2.0-9.0); NEUTROPHILS # (AUTO) 8.4 K/uL (1.8-7.7); NEUTROPHILS % (AUTO) 71.3 % (40.0-70.0); PLATELET COUNT (AUTO) 276 K/uL (150-450); RED BLOOD CELL COUNT(AUTO) 4.59 MIL/uL (4.00-5.20); RED CELL DISTRIBUTION WIDTH 14.6 % (11.5-14.5)
[2020-03-06 12:08] LABS: ANION GAP 11 mmol/L (8-16); CARBON DIOXIDE 26 mmol/L (22-29); CHLORIDE 102 mmol/L (98-107); CREATININE 1.05 mg/dL (0.60-1.30); GLOMERULAR FILTR. RATE CALC > 60 mL/min (>60); GLUCOSE,RANDOM 108 mg/dL (70-110); POTASSIUM 4.3 mmol/L (3.5-5.1); SODIUM SERUM 139 mmol/L (136-145); UREA NITROGEN, BLOOD 12 mg/dL (7-18)
[2020-03-06 12:20] LABS: LITHIUM 0.86 mmol/L (0.60-1.20)
[2020-03-06 12:25] LABS: ALANINE AMINOTRANSFERASE 16 U/L (12-78); ALKALINE PHOSPHATASE 74 U/L (46-116); ASPARTATE AMINOTRANSFERASE 12 U/L (15-37); BILIRUBIN,TOTAL 0.4 mg/dL (0.1-1.0); TOTAL PROTEIN, SERUM 8.5 g/dL (6.4-8.2); VALPROIC ACID 67 mcg/mL (50-100)
[2020-03-06 12:42] LABS: HCG,QUANTITATIVE < 1 mIU/mL (0-6)
[2020-03-06] MEDS ORDERED: DiphenhydrAMINE HCL 50 MG/ML VIAL IM ONE (15:00)
[2020-03-06] MEDS ORDERED: LORazepam 2 MG/ML VIAL IM ONE (15:00)
[2020-03-06 15:44] LABS: FREE T4 (FREE THYROXINE) 0.84 ng/dL (0.76-1.46); THYROID STIMULATING HORMONE 2.88 uIU/mL (0.36-3.74)
[2020-03-06 17:00] LABS: COVID AG,FIA SOURCE NASOPHARYNGEAL
[2020-03-06] MEDS ORDERED: ZOLPIDEM TARTRATE 10 MG TABLET PO PRN (18:00)
[2020-03-06] MEDS ORDERED: LORazepam 1 MG TABLET PO PRN (18:00)
[2020-03-06] MEDS ORDERED: ChlorproMAZINE HCL 100 MG TABLET PO PRN (18:00)
[2020-03-06] MEDS ORDERED: LOPERAMIDE HCL 2 MG CAPSULE PO PRN (19:00)
[2020-03-06] MEDS ORDERED: GuaiFENesin/D-METHORPHAN [SUGAR-FREE] 200-20MG/10 ML SYRUP UDCUP PO PRN (19:00)
[2020-03-06] MEDS ORDERED: ACETAMINOPHEN 325 MG TABLET PO PRN (19:00)
[2020-03-06] MEDS: VALPROIC ACID 250 MG/5 ML SYRUP UDCUP PO SCH (20:36)
[2020-03-06] MEDS: TraZODone HCL 100 MG TABLET PO SCH (20:36)
[2020-03-06] MEDS: LITHIUM CARBONATE 300 MG CAPSULE PO SCH (20:45)
[2020-03-06] MEDS: GuanFACINE HCL 1 MG TABLET PO SCH (20:45)
[2020-03-06] MEDS: THIAMINE 100 MG TABLET PO SCH (20:46)
[2020-03-06] MEDS ORDERED: CloZAPine 100 MG TABLET PO SCH ×2 (21:00)
[2020-03-06] MEDS ORDERED: VALPROIC ACID 250 MG CAPSULE PO SCH (21:00)
[2020-03-07] MEDS ORDERED: INFLUENZA VIRUS VACCINE QVS 2020-21 (6MO+)/PF 60 MCG/0.5 ML SYRINGE IM ONE (01:15)
[2020-03-07] MEDS ORDERED: PNEUMOCOCCAL VACCINE POLYVALENT 0.5 ML VIAL [PPSV23] IM ONE (01:15)
[2020-03-07 08:18] VITALS: BP 119/77
[2020-03-07] MEDS: GuanFACINE HCL 1 MG TABLET PO SCH ×4 (09:00→16:30)
[2020-03-07] MEDS: THIAMINE 100 MG TABLET PO SCH ×3 (09:00→16:28)
[2020-03-07] MEDS: FOLIC ACID 1 MG TABLET PO SCH ×2 (09:00→12:19)
[2020-03-07] MEDS: VALPROIC ACID 250 MG/5 ML SYRUP UDCUP PO SCH ×5 (09:00→20:33)
[2020-03-07] MEDS ORDERED: CloZAPine 100 MG TABLET PO SCH (09:00)
[2020-03-07] MEDS: MULTIVITAMINS WITH MINERALS, THERAPEUTIC TABLET PO SCH ×2 (09:00→12:19)
[2020-03-07] MEDS: OMEGA-3/DHA/EPA/FISH OIL 1,000 MG CAPSULE PO SCH ×2 (09:00→12:19)
[2020-03-07] MEDS: LITHIUM CARBONATE 300 MG CAPSULE PO SCH ×5 (09:00→20:34)
[2020-03-07] MEDS: OLANZapine 5 MG RAPDIS TABLET PO PRN (13:32)
[2020-03-07 16:17] VITALS: BP 106/83
[2020-03-07] MEDS: BusPIRone HCL 5 MG TABLET PO SCH (20:32)
[2020-03-07] MEDS: TraZODone HCL 100 MG TABLET PO SCH (20:34)
[2020-03-07] MEDS: OLANZapine 5 MG RAPDIS TABLET PO SCH (20:34)
[2020-03-07] MEDS ORDERED: CloZAPine 100 MG TABLET PO ONE (21:00)
[2020-03-08] MEDS: FOLIC ACID 1 MG TABLET PO SCH (08:29)
[2020-03-08] MEDS: VALPROIC ACID 250 MG/5 ML SYRUP UDCUP PO SCH ×4 (08:29→20:42)
[2020-03-08] MEDS: GABAPENTIN 300 MG CAPSULE PO PRN (08:29)
[2020-03-08] MEDS: LITHIUM CARBONATE 300 MG CAPSULE PO SCH ×4 (08:29→20:42)
[2020-03-08] MEDS: OMEGA-3/DHA/EPA/FISH OIL 1,000 MG CAPSULE PO SCH (08:29)
[2020-03-08] MEDS: BusPIRone HCL 5 MG TABLET PO SCH ×2 (08:30→16:25)
[2020-03-08] MEDS: GuanFACINE HCL 1 MG TABLET PO SCH ×3 (08:30→16:26)
[2020-03-08] MEDS: MULTIVITAMINS WITH MINERALS, THERAPEUTIC TABLET PO SCH (08:30)
[2020-03-08] MEDS: THIAMINE 100 MG TABLET PO SCH ×2 (08:31→16:27)
[2020-03-08] MEDS: HydrOXYzine PAMOATE 50 MG CAPSULE PO PRN (08:32)
[2020-03-08] MEDS: OLANZapine 5 MG RAPDIS TABLET PO PRN (08:33)
[2020-03-08 11:06] VITALS: BP 134/82
[2020-03-08 16:20] VITALS: BP 99/68
[2020-03-08] MEDS: TraZODone HCL 100 MG TABLET PO SCH (20:42)
[2020-03-08] MEDS: OLANZapine 5 MG RAPDIS TABLET PO SCH (20:43)
[2020-03-08] MEDS ORDERED: CloZAPine 100 MG TABLET PO ONE (21:00)
[2020-03-09] MEDS: BusPIRone HCL 5 MG TABLET PO SCH ×2 (09:03→17:16)
[2020-03-09] MEDS: OMEGA-3/DHA/EPA/FISH OIL 1,000 MG CAPSULE PO SCH (09:03)
[2020-03-09] MEDS: MULTIVITAMINS WITH MINERALS, THERAPEUTIC TABLET PO SCH (09:03)
[2020-03-09] MEDS: LITHIUM CARBONATE 300 MG CAPSULE PO SCH ×4 (09:03→21:15)
[2020-03-09] MEDS: VALPROIC ACID 250 MG/5 ML SYRUP UDCUP PO SCH ×4 (09:04→21:23)
[2020-03-09] MEDS: THIAMINE 100 MG TABLET PO SCH ×2 (09:04→17:14)
[2020-03-09] MEDS: FOLIC ACID 1 MG TABLET PO SCH (09:04)
[2020-03-09] MEDS: GuanFACINE HCL 1 MG TABLET PO SCH ×3 (09:04→17:14)
[2020-03-09] MEDS: OLANZapine 5 MG RAPDIS TABLET PO PRN (09:07)
[2020-03-09 12:55] VITALS: BP 118/69
[2020-03-09 16:05] VITALS: BP 128/69
[2020-03-09] MEDS ORDERED: CloZAPine 100 MG TABLET PO ONE (21:00)
[2020-03-09] MEDS: OLANZapine 5 MG RAPDIS TABLET PO SCH (21:14)
[2020-03-09] MEDS: TraZODone HCL 100 MG TABLET PO SCH (21:15)
[2020-03-10 08:29] VITALS: BP 133/77
[2020-03-10] MEDS: GuanFACINE HCL 1 MG TABLET PO SCH ×3 (08:42→17:09)
[2020-03-10] MEDS: BusPIRone HCL 5 MG TABLET PO SCH ×2 (08:42→17:09)
[2020-03-10] MEDS: THIAMINE 100 MG TABLET PO SCH ×2 (08:43→17:09)
[2020-03-10] MEDS: OLANZapine 5 MG RAPDIS TABLET PO PRN ×2 (08:44→17:47)
[2020-03-10] MEDS: LITHIUM CARBONATE 300 MG CAPSULE PO SCH ×4 (08:44→20:27)
[2020-03-10] MEDS: MULTIVITAMINS WITH MINERALS, THERAPEUTIC TABLET PO SCH (08:44)
[2020-03-10] MEDS: OMEGA-3/DHA/EPA/FISH OIL 1,000 MG CAPSULE PO SCH (08:44)
[2020-03-10] MEDS: VALPROIC ACID 250 MG/5 ML SYRUP UDCUP PO SCH ×4 (08:45→20:27)
[2020-03-10] MEDS: FOLIC ACID 1 MG TABLET PO SCH (08:45)
[2020-03-10] MEDS: MAGNESIUM HYDROXIDE SUSPENSION 30 ML UDCUP PO PRN (11:06)
[2020-03-10] MEDS: TraZODone HCL 100 MG TABLET PO SCH (20:27)
[2020-03-10] MEDS: OLANZapine 5 MG RAPDIS TABLET PO SCH (20:28)
[2020-03-10] MEDS ORDERED: CloZAPine 100 MG TABLET PO ONE (21:00)
[2020-03-11] MEDS: ZOLPIDEM TARTRATE 10 MG TABLET PO PRN (00:43)
[2020-03-11] MEDS: OLANZapine 5 MG RAPDIS TABLET PO PRN ×3 (00:43→12:52)
[2020-03-11] MEDS: HydrOXYzine PAMOATE 50 MG CAPSULE PO PRN ×2 (07:41→16:11)
[2020-03-11] MEDS: LITHIUM CARBONATE 300 MG CAPSULE PO SCH ×4 (07:41→20:45)
[2020-03-11] MEDS: FOLIC ACID 1 MG TABLET PO SCH (07:41)
[2020-03-11] MEDS: VALPROIC ACID 250 MG/5 ML SYRUP UDCUP PO SCH ×4 (07:41→20:46)
[2020-03-11] MEDS: MULTIVITAMINS WITH MINERALS, THERAPEUTIC TABLET PO SCH (07:41)
[2020-03-11] MEDS: GABAPENTIN 300 MG CAPSULE PO PRN ×2 (07:41→12:52)
[2020-03-11] MEDS: THIAMINE 100 MG TABLET PO SCH ×2 (07:41→16:13)
[2020-03-11] MEDS: OMEGA-3/DHA/EPA/FISH OIL 1,000 MG CAPSULE PO SCH (07:41)
[2020-03-11] MEDS: BusPIRone HCL 5 MG TABLET PO SCH ×2 (07:42→16:11)
[2020-03-11] MEDS: GuanFACINE HCL 1 MG TABLET PO SCH ×3 (07:43→16:12)
[2020-03-11] MEDS: MAG HYDROX/AL HYDROX/SIMETH ES 30 ML SUSPENSION UDCUP PO PRN ×2 (14:08→14:12)
[2020-03-11] MEDS: TraZODone HCL 100 MG TABLET PO SCH (20:45)
[2020-03-11] MEDS: OLANZapine 10 MG RAPDIS TABLET PO SCH (20:45)
[2020-03-11] MEDS ORDERED: CloZAPine 25 MG TABLET PO ONE (21:00)
[2020-03-12] MEDS: ZOLPIDEM TARTRATE 10 MG TABLET PO PRN ×2 (00:18→22:12)
[2020-03-12] MEDS: OLANZapine 5 MG RAPDIS TABLET PO PRN ×3 (00:18→23:31)
[2020-03-12] MEDS: BusPIRone HCL 5 MG TABLET PO SCH ×2 (07:49→16:19)
[2020-03-12] MEDS: FOLIC ACID 1 MG TABLET PO SCH (07:49)
[2020-03-12] MEDS: LITHIUM CARBONATE 300 MG CAPSULE PO SCH ×4 (07:50→20:15)
[2020-03-12] MEDS: THIAMINE 100 MG TABLET PO SCH ×2 (07:50→16:15)
[2020-03-12] MEDS: GuanFACINE HCL 1 MG TABLET PO SCH ×3 (07:50→16:14)
[2020-03-12] MEDS: MULTIVITAMINS WITH MINERALS, THERAPEUTIC TABLET PO SCH (07:50)
[2020-03-12] MEDS: GABAPENTIN 300 MG CAPSULE PO PRN (07:50)
[2020-03-12] MEDS: OMEGA-3/DHA/EPA/FISH OIL 1,000 MG CAPSULE PO SCH (07:54)
[2020-03-12 08:25] VITALS: BP 129/78
[2020-03-12] MEDS: VALPROIC ACID 250 MG/5 ML SYRUP UDCUP PO SCH ×4 (09:00→20:14)
[2020-03-12 16:18] VITALS: BP 117/69
[2020-03-12] MEDS: TraZODone HCL 100 MG TABLET PO SCH (20:15)
[2020-03-12] MEDS: OLANZapine 10 MG RAPDIS TABLET PO SCH (20:15)
[2020-03-13 06:22] LABS: BASOPHILS % (AUTO) 0.4 % (0.0-2.0); EOSINOPHILS % (AUTO) 3.1 % (1.0-6.0); HEMATOCRIT 39.5 % (36-46); HEMOGLOBIN 13.3 g/dL (12.0-16.0); LYMPHOCYTES # (AUTO) 3.5 K/uL (1.0-4.8); LYMPHOCYTES % (AUTO) 34.5 % (22.0-44.0); MEAN CORPUSCULAR HEMOGLOBIN 32.3 pg (26.0-34.0); MEAN CORPUSCULAR HGB CONC 33.7 G/dL (31.0-37.0); MEAN CORPUSCULAR VOLUME 96 fL (80-100); MONOCYTES % (AUTO) 9.4 % (2.0-9.0); NEUTROPHILS # (AUTO) 5.4 K/uL (1.8-7.7); NEUTROPHILS % (AUTO) 52.6 % (40.0-70.0); PLATELET COUNT (AUTO) 254 K/uL (150-450); RED BLOOD CELL COUNT(AUTO) 4.12 MIL/uL (4.00-5.20); RED CELL DISTRIBUTION WIDTH 14.4 % (11.5-14.5)
[2020-03-13] MEDS: GuanFACINE HCL 1 MG TABLET PO SCH ×3 (07:34→16:02)
[2020-03-13] MEDS: OLANZapine 5 MG RAPDIS TABLET PO PRN ×2 (07:35→16:02)
[2020-03-13] MEDS: THIAMINE 100 MG TABLET PO SCH ×2 (07:35→16:01)
[2020-03-13] MEDS: LITHIUM CARBONATE 300 MG CAPSULE PO SCH ×4 (07:35→20:03)
[2020-03-13] MEDS: FOLIC ACID 1 MG TABLET PO SCH (07:35)
[2020-03-13] MEDS: OMEGA-3/DHA/EPA/FISH OIL 1,000 MG CAPSULE PO SCH (07:35)
[2020-03-13] MEDS: BusPIRone HCL 5 MG TABLET PO SCH ×2 (07:35→16:01)
[2020-03-13] MEDS: MULTIVITAMINS WITH MINERALS, THERAPEUTIC TABLET PO SCH (07:35)
[2020-03-13] MEDS: VALPROIC ACID 250 MG/5 ML SYRUP UDCUP PO SCH ×4 (07:35→20:02)
[2020-03-13 08:00] VITALS: BP 128/94
[2020-03-13] MEDS: TraZODone HCL 100 MG TABLET PO SCH (20:02)
[2020-03-13] MEDS: OLANZapine 5 MG RAPDIS TABLET PO SCH (20:03)
[2020-03-13] MEDS: ZOLPIDEM TARTRATE 10 MG TABLET PO PRN (20:53)
[2020-03-14] MEDS: FOLIC ACID 1 MG TABLET PO SCH (07:42)
[2020-03-14] MEDS: BusPIRone HCL 10 MG TABLET PO SCH ×2 (07:42→16:46)
[2020-03-14] MEDS: MULTIVITAMINS WITH MINERALS, THERAPEUTIC TABLET PO SCH (07:42)
[2020-03-14] MEDS: THIAMINE 100 MG TABLET PO SCH ×2 (07:42→16:45)
[2020-03-14] MEDS: LITHIUM CARBONATE 300 MG CAPSULE PO SCH ×4 (07:42→20:32)
[2020-03-14] MEDS: VALPROIC ACID 250 MG/5 ML SYRUP UDCUP PO SCH ×4 (07:42→20:32)
[2020-03-14] MEDS: OMEGA-3/DHA/EPA/FISH OIL 1,000 MG CAPSULE PO SCH (07:42)
[2020-03-14] MEDS: GuanFACINE HCL 1 MG TABLET PO SCH ×3 (07:43→16:45)
[2020-03-14 08:00] VITALS: BP 144/88
[2020-03-14 16:15] VITALS: BP 119/68
[2020-03-14] MEDS: OLANZapine 5 MG RAPDIS TABLET PO SCH (20:32)
[2020-03-14] MEDS: TraZODone HCL 100 MG TABLET PO SCH (20:32)
[2020-03-15] MEDS: VALPROIC ACID 250 MG/5 ML SYRUP UDCUP PO SCH ×4 (07:49→20:08)
[2020-03-15] MEDS: MULTIVITAMINS WITH MINERALS, THERAPEUTIC TABLET PO SCH (07:49)
[2020-03-15] MEDS: BusPIRone HCL 10 MG TABLET PO SCH ×2 (07:49→16:08)
[2020-03-15] MEDS: OMEGA-3/DHA/EPA/FISH OIL 1,000 MG CAPSULE PO SCH (07:49)
[2020-03-15] MEDS: FOLIC ACID 1 MG TABLET PO SCH (07:49)
[2020-03-15] MEDS: LITHIUM CARBONATE 300 MG CAPSULE PO SCH ×4 (07:49→20:07)
[2020-03-15] MEDS: GuanFACINE HCL 1 MG TABLET PO SCH ×3 (07:49→16:08)
[2020-03-15] MEDS: THIAMINE 100 MG TABLET PO SCH ×2 (07:49→16:08)
[2020-03-15 08:20] VITALS: BP 101/55
[2020-03-15] MEDS: MAGNESIUM HYDROXIDE SUSPENSION 30 ML UDCUP PO PRN (09:21)
[2020-03-15 16:06] VITALS: BP 134/90
[2020-03-15] MEDS: OLANZapine 5 MG RAPDIS TABLET PO SCH (20:07)
[2020-03-15] MEDS: TraZODone HCL 100 MG TABLET PO SCH (20:07)
[2020-03-16] MEDS: OLANZapine 5 MG RAPDIS TABLET PO PRN (00:39)
[2020-03-16] MEDS: ZOLPIDEM TARTRATE 10 MG TABLET PO PRN (00:39)
[2020-03-16] MEDS: LITHIUM CARBONATE 300 MG CAPSULE PO SCH ×4 (08:34→21:57)
[2020-03-16] MEDS: FOLIC ACID 1 MG TABLET PO SCH (08:34)
[2020-03-16] MEDS: VALPROIC ACID 250 MG/5 ML SYRUP UDCUP PO SCH ×4 (08:34→21:57)
[2020-03-16] MEDS: MULTIVITAMINS WITH MINERALS, THERAPEUTIC TABLET PO SCH (08:34)
[2020-03-16] MEDS: OMEGA-3/DHA/EPA/FISH OIL 1,000 MG CAPSULE PO SCH (08:34)
[2020-03-16] MEDS: BusPIRone HCL 10 MG TABLET PO SCH ×2 (08:34→16:21)
[2020-03-16] MEDS: GuanFACINE HCL 1 MG TABLET PO SCH ×3 (08:35→16:20)
[2020-03-16 12:40] VITALS: BP 115/62
[2020-03-16] MEDS: GABAPENTIN 300 MG CAPSULE PO PRN (16:20)
[2020-03-16 16:39] VITALS: BP 113/60
[2020-03-16] MEDS: OLANZapine 5 MG RAPDIS TABLET PO SCH (21:57)
[2020-03-16] MEDS: TraZODone HCL 100 MG TABLET PO SCH (21:57)
[2020-03-17] MEDS: ZOLPIDEM TARTRATE 10 MG TABLET PO PRN ×2 (02:09→20:48)
[2020-03-17] MEDS: BusPIRone HCL 10 MG TABLET PO SCH ×2 (09:02→16:04)
[2020-03-17] MEDS: LITHIUM CARBONATE 300 MG CAPSULE PO SCH ×4 (09:02→20:03)
[2020-03-17] MEDS: MULTIVITAMINS WITH MINERALS, THERAPEUTIC TABLET PO SCH (09:02)
[2020-03-17] MEDS: VALPROIC ACID 250 MG/5 ML SYRUP UDCUP PO SCH ×4 (09:02→20:03)
[2020-03-17] MEDS: GuanFACINE HCL 1 MG TABLET PO SCH ×3 (09:03→16:05)
[2020-03-17] MEDS: OMEGA-3/DHA/EPA/FISH OIL 1,000 MG CAPSULE PO SCH (09:03)
[2020-03-17] MEDS: OLANZapine 5 MG RAPDIS TABLET PO PRN ×2 (09:08→15:41)
[2020-03-17 16:27] VITALS: BP 101/65
[2020-03-17] MEDS: GABAPENTIN 300 MG CAPSULE PO PRN (18:43)
[2020-03-17] MEDS: TraZODone HCL 100 MG TABLET PO SCH (20:03)
[2020-03-17] MEDS: OLANZapine 5 MG RAPDIS TABLET PO SCH (20:03)
[2020-03-18] MEDS: LITHIUM CARBONATE 300 MG CAPSULE PO SCH ×4 (07:39→20:03)
[2020-03-18] MEDS: GuanFACINE HCL 1 MG TABLET PO SCH ×3 (07:39→16:12)
[2020-03-18] MEDS: VALPROIC ACID 250 MG/5 ML SYRUP UDCUP PO SCH ×4 (07:39→20:04)
[2020-03-18] MEDS: MULTIVITAMINS WITH MINERALS, THERAPEUTIC TABLET PO SCH (07:40)
[2020-03-18] MEDS: BusPIRone HCL 10 MG TABLET PO SCH ×2 (07:40→16:12)
[2020-03-18] MEDS: GABAPENTIN 300 MG CAPSULE PO PRN ×2 (07:40→13:07)
[2020-03-18] MEDS: OLANZapine 5 MG RAPDIS TABLET PO SCH ×3 (07:40→16:13)
[2020-03-18] MEDS: OMEGA-3/DHA/EPA/FISH OIL 1,000 MG CAPSULE PO SCH (07:40)
[2020-03-18 08:00] VITALS: BP 98/65
[2020-03-18 16:41] VITALS: BP 119/70
[2020-03-18] MEDS: TraZODone HCL 100 MG TABLET PO SCH (20:03)
[2020-03-18] MEDS: ZOLPIDEM TARTRATE 10 MG TABLET PO PRN (22:34)
[2020-03-19 08:00] VITALS: BP 136/76
[2020-03-19] MEDS: BusPIRone HCL 10 MG TABLET PO SCH ×2 (08:10→17:50)
[2020-03-19] MEDS: LITHIUM CARBONATE 300 MG CAPSULE PO SCH ×4 (08:10→21:15)
[2020-03-19] MEDS: OMEGA-3/DHA/EPA/FISH OIL 1,000 MG CAPSULE PO SCH (08:10)
[2020-03-19] MEDS: MULTIVITAMINS WITH MINERALS, THERAPEUTIC TABLET PO SCH (08:10)
[2020-03-19] MEDS: VALPROIC ACID 250 MG/5 ML SYRUP UDCUP PO SCH ×4 (08:10→21:16)
[2020-03-19] MEDS: OLANZapine 5 MG RAPDIS TABLET PO SCH ×3 (08:10→17:51)
[2020-03-19] MEDS: GuanFACINE HCL 1 MG TABLET PO SCH ×3 (08:12→17:50)
[2020-03-19 16:00] VITALS: BP 129/80
[2020-03-19] MEDS: TraZODone HCL 100 MG TABLET PO SCH (21:15)
[2020-03-20 08:41] VITALS: BP 115/70
[2020-03-20] MEDS: LITHIUM CARBONATE 300 MG CAPSULE PO SCH ×4 (10:58→20:27)
[2020-03-20] MEDS: OLANZapine 5 MG RAPDIS TABLET PO SCH ×3 (10:59→16:44)
[2020-03-20] MEDS: GABAPENTIN 300 MG CAPSULE PO PRN ×2 (10:59→14:03)
[2020-03-20] MEDS: OMEGA-3/DHA/EPA/FISH OIL 1,000 MG CAPSULE PO SCH (10:59)
[2020-03-20] MEDS: MULTIVITAMINS WITH MINERALS, THERAPEUTIC TABLET PO SCH (10:59)
[2020-03-20] MEDS: BusPIRone HCL 10 MG TABLET PO SCH ×2 (11:00→16:44)
[2020-03-20] MEDS: GuanFACINE HCL 1 MG TABLET PO SCH ×3 (11:00→16:44)
[2020-03-20] MEDS: VALPROIC ACID 250 MG/5 ML SYRUP UDCUP PO SCH ×4 (11:00→20:27)
[2020-03-20 16:04] VITALS: BP 121/77
[2020-03-20] MEDS: TraZODone HCL 100 MG TABLET PO SCH (20:27)
[2020-03-21 08:00] VITALS: BP 130/80
[2020-03-21] MEDS: VALPROIC ACID 250 MG/5 ML SYRUP UDCUP PO SCH ×4 (08:20→20:20)
[2020-03-21] MEDS: OLANZapine 5 MG RAPDIS TABLET PO SCH ×3 (08:20→16:58)
[2020-03-21] MEDS: OMEGA-3/DHA/EPA/FISH OIL 1,000 MG CAPSULE PO SCH (08:21)
[2020-03-21] MEDS: MULTIVITAMINS WITH MINERALS, THERAPEUTIC TABLET PO SCH (08:21)
[2020-03-21] MEDS: PROMETHAZINE HCL 25 MG TABLET PO PRN (08:21)
[2020-03-21] MEDS: BusPIRone HCL 10 MG TABLET PO SCH ×2 (08:22→16:58)
[2020-03-21] MEDS: GABAPENTIN 300 MG CAPSULE PO PRN (08:22)
[2020-03-21] MEDS: GuanFACINE HCL 1 MG TABLET PO SCH ×3 (08:23→16:57)
[2020-03-21] MEDS: LITHIUM CARBONATE 300 MG CAPSULE PO SCH ×4 (08:23→20:20)
[2020-03-21 16:19] VITALS: BP 128/84
[2020-03-21] MEDS: TraZODone HCL 100 MG TABLET PO SCH (20:20)
[2020-03-21] MEDS: ZOLPIDEM TARTRATE 10 MG TABLET PO PRN (20:36)
[2020-03-22] MEDS: LITHIUM CARBONATE 300 MG CAPSULE PO SCH ×4 (07:28→20:54)
[2020-03-22] MEDS: GABAPENTIN 300 MG CAPSULE PO PRN (07:28)
[2020-03-22] MEDS: MULTIVITAMINS WITH MINERALS, THERAPEUTIC TABLET PO SCH (07:28)
[2020-03-22] MEDS: OMEGA-3/DHA/EPA/FISH OIL 1,000 MG CAPSULE PO SCH (07:28)
[2020-03-22] MEDS: GuanFACINE HCL 1 MG TABLET PO SCH ×3 (07:28→16:26)
[2020-03-22] MEDS: PROMETHAZINE HCL 25 MG TABLET PO PRN (07:28)
[2020-03-22] MEDS: VALPROIC ACID 250 MG/5 ML SYRUP UDCUP PO SCH ×4 (07:28→20:54)
[2020-03-22] MEDS: OLANZapine 5 MG RAPDIS TABLET PO SCH ×3 (07:28→16:27)
[2020-03-22] MEDS: BusPIRone HCL 10 MG TABLET PO SCH ×2 (07:28→16:27)
[2020-03-22] MEDS: OLANZapine 5 MG RAPDIS TABLET PO PRN (07:29)
[2020-03-22 09:39] VITALS: BP 99/63
[2020-03-22 16:30] VITALS: BP 106/63
[2020-03-22] MEDS: TraZODone HCL 100 MG TABLET PO SCH (20:53)
[2020-03-23 01:16] VITALS: BP 94/57
[2020-03-23] MEDS: ZOLPIDEM TARTRATE 10 MG TABLET PO PRN (01:17)
[2020-03-23] MEDS: LITHIUM CARBONATE 300 MG CAPSULE PO SCH ×3 (07:58→16:17)
[2020-03-23] MEDS: MULTIVITAMINS WITH MINERALS, THERAPEUTIC TABLET PO SCH (07:58)
[2020-03-23] MEDS: BusPIRone HCL 10 MG TABLET PO SCH ×2 (07:59→16:17)
[2020-03-23] MEDS: VALPROIC ACID 250 MG/5 ML SYRUP UDCUP PO SCH ×3 (07:59→16:17)
[2020-03-23] MEDS: OMEGA-3/DHA/EPA/FISH OIL 1,000 MG CAPSULE PO SCH (07:59)
[2020-03-23 08:00] VITALS: BP 116/55
[2020-03-23] MEDS ORDERED: GUAN1TAB2 PO (08:30)
[2020-03-23] MEDS ORDERED: OMEG-135 PO (08:30)
[2020-03-23] MEDS ORDERED: OLAN5TAB30 PO (08:30)
[2020-03-23] MEDS ORDERED: VALP250S23 PO (08:30)
[2020-03-23] MEDS ORDERED: BUSP10TA23 PO (08:30)
[2020-03-23] MEDS ORDERED: LITH300C3 PO (08:30)
[2020-03-23] MEDS ORDERED: TRAZ-257 PO (08:30)
[2020-03-23] MEDS: OLANZapine 5 MG RAPDIS TABLET PO SCH ×3 (08:39→16:18)
[2020-03-23] MEDS: GuanFACINE HCL 1 MG TABLET PO SCH ×3 (09:00→16:17)
[2020-03-23] MEDS ORDERED: INFLUENZA VIRUS VACCINE QVS 2020-21 (6MO+)/PF 60 MCG/0.5 ML SYRINGE IM ONE (13:45)
== END 2020-03-23 16:38 | disposition home or self-care (01) | DRG 750 ==
LOC: EMS 11:27 → 3EI 17:51 → 3EC 03-07 00:12
PROVIDERS: ADMIT Psychiatry & Neurology Psychiatry; ATTEND Psychiatry & Neurology Psychiatry
DX: F25.9 Schizoaffective disorder, unspecified (principal); E03.9 Hypothyroidism, unspecified; I10 Essential (primary) hypertension; K21.9 Gastro-esophageal reflux disease without esophagitis; K59.00 Constipation, unspecified; F41.9 Anxiety disorder, unspecified; G47.00 Insomnia, unspecified; F70 Mild intellectual disabilities; R45.87 Impulsiveness; Z20.828 Contact with and (suspected) exposure to other viral communicable diseases; F84.0 Autistic disorder; E55.9 Vitamin D deficiency, unspecified; Z91.14 Patient's other noncompliance with medication regimen; Z23 Encounter for immunization
CPT/HCPCS: 80159; 84439; 84443; 87081; 87426; 90686; G0480; J1200; J2060

== ENCOUNTER 2020-05-06 12:52 | Emergency (ER) | payer MEDICAID, OTHER ==
[~2020-05-06] VITALS: Ht 162.6 cm; Wt 63.6 kg
[~2020-05-06 12:52] MED LIST changes: +BUSP10TA23 PO; -CLOZ100T31 PO; +GUAN1TAB2 PO; -GUAN1TAB22 PO; -LEVO50 PO; +OLAN5TAB27 PO; -OMEG-135 PO; +VALP250C48 PO; -VALP250S23 PO
[2020-05-06 15:24] LABS: BASOPHILS % (AUTO) 0.4 % (0.0-2.0); EOSINOPHILS % (AUTO) 0.3 % (1.0-6.0); HEMATOCRIT 34.4 % (36-46); HEMOGLOBIN 11.4 g/dL (12.0-16.0); LYMPHOCYTES % (AUTO) 19.2 % (22.0-44.0); MEAN CORPUSCULAR HEMOGLOBIN 32.6 pg (26.0-34.0); MEAN CORPUSCULAR HGB CONC 33.1 G/dL (31.0-37.0); MEAN CORPUSCULAR VOLUME 99 fL (80-100); MONOCYTES # (AUTO) 0.9 K/uL (0.1-1.0); MONOCYTES % (AUTO) 8.8 % (2.0-9.0); NEUTROPHILS # (AUTO) 7.6 K/uL (1.8-7.7); NEUTROPHILS % (AUTO) 71.3 % (40.0-70.0); PLATELET COUNT (AUTO) 185 K/uL (150-450); RED BLOOD CELL COUNT(AUTO) 3.49 MIL/uL (4.00-5.20); RED CELL DISTRIBUTION WIDTH 13.6 % (11.5-14.5)
[2020-05-06 15:36] LABS: LITHIUM 0.62 mmol/L (0.60-1.20)
[2020-05-06 16:21] LABS: ALANINE AMINOTRANSFERASE 21 U/L (12-78); ALBUMIN 3.6 g/dL (3.4-5.0); ALKALINE PHOSPHATASE 61 U/L (46-116); ANION GAP 16 mmol/L (8-16); ASPARTATE AMINOTRANSFERASE 22 U/L (15-37); BILIRUBIN,TOTAL 0.8 mg/dL (0.1-1.0); CALCIUM, TOTAL 8.9 mg/dL (8.8-10.5); CARBON DIOXIDE 18 mmol/L (22-29); CHLORIDE 107 mmol/L (98-107); CREATINE KINASE, TOTAL ONLY 454 U/L (26-192); CREATININE 0.86 mg/dL (0.60-1.30); GLOMERULAR FILTR. RATE CALC > 60 mL/min (>60); GLUCOSE,RANDOM 78 mg/dL (70-110); POTASSIUM 3.5 mmol/L (3.5-5.1); SODIUM SERUM 141 mmol/L (136-145); TOTAL PROTEIN, SERUM 7.3 g/dL (6.4-8.2); UREA NITROGEN, BLOOD 10 mg/dL (7-18)
[2020-05-06 18:37] LABS: COVID AG,FIA SOURCE NASOPHARYNGEAL
[2020-05-06] MEDS ORDERED: OLANZapine 5 MG TABLET PO ONE (20:30)
[2020-05-06] MEDS ORDERED: TraZODone HCL 50 MG TABLET PO ONE (20:30)
[2020-05-06] MEDS ORDERED: TraZODone HCL 100 MG TABLET PO ONE (20:30)
[2020-05-06] MEDS ORDERED: BusPIRone HCL 10 MG TABLET PO ONE (20:30)
[2020-05-06] MEDS ORDERED: LITHIUM CARBONATE 300 MG CAPSULE PO ONE (20:30)
[2020-05-06] MEDS ORDERED: DIVALPROEX SODIUM 250 MG DR TABLET PO ONE (20:30)
[2020-05-06 22:30] VITALS: BP 133/88
== END 2020-05-06 22:51 | disposition home or self-care (01) ==
LOC: EDUNIT# 12:52 → EMS 12:57
DX: F31.9 Bipolar disorder, unspecified (principal); Z91.14 Patient's other noncompliance with medication regimen; Z20.822 Contact with and (suspected) exposure to COVID-19
CPT/HCPCS: 36415; 71045; 80053; 80178; 82550; 85025; 87426; 99285; G0480

== ENCOUNTER 2020-05-15 14:18 | Inpatient (IN) | payer MEDICAID ==
[~2020-05-15] VITALS: Ht 152.4 cm; Wt 68.0 kg
[2020-05-18 00:40] VITALS: BP 106/66
[2020-05-18] MEDS ORDERED: HALOPERIDOL 5 MG TABLET PO PRN (01:15)
[2020-05-18] MEDS: LITHIUM CARBONATE 600 MG CAPSULE PO SCH ×2 (09:00→17:00)
[2020-05-18] MEDS ORDERED: VALPROIC ACID 250 MG CAPSULE PO SCH (09:00)
[2020-05-18] MEDS: RisperiDONE 0.5 MG TABLET PO SCH ×4 (09:00→21:00)
[2020-05-18] MEDS: VALPROIC ACID 250 MG/5 ML SYRUP UDCUP PO SCH ×4 (11:07→21:00)
[2020-05-18] MEDS ORDERED: LOPERAMIDE HCL 2 MG CAPSULE PO PRN ×2 (12:45→14:45)
[2020-05-18] MEDS ORDERED: PETROLATUM,WHITE 28 GM JELLY TP PRN (12:45)
[2020-05-18] MEDS ORDERED: BACITRACIN 28 GM OINTMENT TP PRN (12:45)
[2020-05-18] MEDS ORDERED: ONDANSETRON HCL 4 MG TABLET PO PRN (12:45)
[2020-05-18] MEDS ORDERED: CloNIDine HCL 0.1 MG TABLET PO PRN (12:45)
[2020-05-18] MEDS ORDERED: DOCUSATE SODIUM 100 MG CAPSULE PO PRN (12:45)
[2020-05-18] MEDS ORDERED: MAG HYDROX/AL HYDROX/SIMETH ES 30 ML SUSPENSION UDCUP PO PRN ×2 (12:45→14:45)
[2020-05-18] MEDS ORDERED: ALBUTEROL SULFATE HFA 90 MCG/PUFF 8 GM INHALER IH PRN (12:45)
[2020-05-18] MEDS ORDERED: BENZOCAINE/MENTHOL LOZENGE PO PRN (12:45)
[2020-05-18] MEDS ORDERED: MAGNESIUM HYDROXIDE SUSPENSION 30 ML UDCUP PO PRN (12:45)
[2020-05-18] MEDS ORDERED: GuaiFENesin/D-METHORPHAN [SUGAR-FREE] 200-20MG/10 ML SYRUP UDCUP PO PRN (14:45)
[2020-05-18] MEDS ORDERED: ACETAMINOPHEN 325 MG TABLET PO PRN (14:45)
[2020-05-18 16:00] VITALS: BP 134/72
[2020-05-18] MEDS: THIAMINE 100 MG TABLET PO SCH (17:00)
[2020-05-19 07:02] VITALS: BP 121/70
[2020-05-19 07:12] LABS: LITHIUM 0.22 mmol/L (0.60-1.20)
[2020-05-19] MEDS: VALPROIC ACID 250 MG/5 ML SYRUP UDCUP PO SCH ×5 (08:07→21:30)
[2020-05-19] MEDS: RisperiDONE 0.5 MG TABLET PO SCH ×4 (09:00→21:30)
[2020-05-19] MEDS: FOLIC ACID 1 MG TABLET PO SCH (09:00)
[2020-05-19] MEDS: LITHIUM CARBONATE 600 MG CAPSULE PO SCH ×2 (09:00→16:59)
[2020-05-19] MEDS: THIAMINE 100 MG TABLET PO SCH ×2 (09:00→17:00)
[2020-05-19] MEDS: MULTIVITAMINS WITH MINERALS, THERAPEUTIC TABLET PO SCH (09:00)
[2020-05-19 16:16] VITALS: BP 114/77
[2020-05-19 16:23] LABS: COVID AG,FIA SOURCE NASAL SWAB
[2020-05-19] MEDS: LITHIUM CARBONATE 300 MG CAPSULE PO SCH ×2 (18:00→21:30)
[2020-05-20] MEDS: VALPROIC ACID 250 MG/5 ML SYRUP UDCUP PO SCH ×5 (06:00→21:01)
[2020-05-20] MEDS: LITHIUM CARBONATE 300 MG CAPSULE PO SCH ×5 (06:00→21:01)
[2020-05-20 08:00] VITALS: BP 122/76
[2020-05-20] MEDS: MULTIVITAMINS WITH MINERALS, THERAPEUTIC TABLET PO SCH (09:00)
[2020-05-20] MEDS: THIAMINE 100 MG TABLET PO SCH ×2 (09:44→16:28)
[2020-05-20] MEDS: HydrOXYzine PAMOATE 50 MG CAPSULE PO PRN ×2 (09:44→22:32)
[2020-05-20] MEDS: FOLIC ACID 1 MG TABLET PO SCH (09:45)
[2020-05-20] MEDS: OLANZapine 5 MG RAPDIS TABLET PO PRN (09:45)
[2020-05-20] MEDS: RisperiDONE 0.5 MG TABLET PO SCH ×4 (09:48→21:01)
[2020-05-20 17:26] VITALS: BP 105/69
[2020-05-20 23:34] LABS: APPEARANCE,URINE CLOUDY (CLEAR); BILIRUBIN,URINE NEGATIVE (NEGATIVE); GLUCOSE, URINE (UA) NEGATIVE (NEGATIVE); KETONES,URINE TRACE mg/dL (NEGATIVE); LEUKOCYTE ESTERASE ,URINE TRACE (NEGATIVE); NITRATE,URINE NEGATIVE (NEGATIVE); OCCULT BLOOD,URINE NEGATIVE (NEGATIVE); PROTEIN,URINE NEGATIVE (NEGATIVE); UROBILINOGEN,URINE 0.2 mg/dL (<=1.0)
[2020-05-21 00:10] LABS: BACTERIA,URINE Rare /HPF (None Seen); RBC,URINE None Seen /HPF (0-2); SQUAMOUS EPITHELIAL CELL,UR Moderate /LPF (None Seen); WBC,URINE 0-2 /HPF (0-5)
[2020-05-21] MEDS: VALPROIC ACID 250 MG/5 ML SYRUP UDCUP PO SCH ×5 (05:54→21:20)
[2020-05-21] MEDS: LITHIUM CARBONATE 300 MG CAPSULE PO SCH ×5 (05:54→21:20)
[2020-05-21 07:18] LABS: BASOPHILS % (AUTO) 0.6 % (0.0-2.0); EOSINOPHILS % (AUTO) 5.9 % (1.0-6.0); HEMATOCRIT 39.6 % (36-46); HEMOGLOBIN 13.6 g/dL (12.0-16.0); LYMPHOCYTES # (AUTO) 2.6 K/uL (1.0-4.8); LYMPHOCYTES % (AUTO) 42.8 % (22.0-44.0); MEAN CORPUSCULAR HEMOGLOBIN 33.1 pg (26.0-34.0); MEAN CORPUSCULAR HGB CONC 34.3 G/dL (31.0-37.0); MEAN CORPUSCULAR VOLUME 97 fL (80-100); MONOCYTES # (AUTO) 0.6 K/uL (0.1-1.0); MONOCYTES % (AUTO) 10.4 % (2.0-9.0); NEUTROPHILS # (AUTO) 2.5 K/uL (1.8-7.7); NEUTROPHILS % (AUTO) 40.3 % (40.0-70.0); PLATELET COUNT (AUTO) 179 K/uL (150-450); RED BLOOD CELL COUNT(AUTO) 4.11 MIL/uL (4.00-5.20); RED CELL DISTRIBUTION WIDTH 13.3 % (11.5-14.5)
[2020-05-21 07:36] LABS: ALANINE AMINOTRANSFERASE 25 U/L (12-78); ALBUMIN 3.6 g/dL (3.4-5.0); ALKALINE PHOSPHATASE 56 U/L (46-116); ANION GAP 4 mmol/L (8-16); ASPARTATE AMINOTRANSFERASE 16 U/L (15-37); BILIRUBIN,TOTAL 0.3 mg/dL (0.1-1.0); CALCIUM, TOTAL 9.5 mg/dL (8.8-10.5); CARBON DIOXIDE 30 mmol/L (22-29); CHLORIDE 103 mmol/L (98-107); CREATININE 0.85 mg/dL (0.60-1.30); GLOMERULAR FILTR. RATE CALC > 60 mL/min (>60); GLUCOSE,RANDOM 85 mg/dL (70-110); POTASSIUM 4.2 mmol/L (3.5-5.1); SODIUM SERUM 137 mmol/L (136-145); TOTAL PROTEIN, SERUM 7.3 g/dL (6.4-8.2); UREA NITROGEN, BLOOD 9 mg/dL (7-18)
[2020-05-21 08:00] VITALS: BP 126/83
[2020-05-21] MEDS: FOLIC ACID 1 MG TABLET PO SCH (08:38)
[2020-05-21] MEDS: MULTIVITAMINS WITH MINERALS, THERAPEUTIC TABLET PO SCH (08:38)
[2020-05-21] MEDS: THIAMINE 100 MG TABLET PO SCH ×2 (08:38→16:30)
[2020-05-21] MEDS: RisperiDONE 0.5 MG TABLET PO SCH ×4 (08:38→21:09)
[2020-05-21 16:35] LABS: CHOL/HDL RATIO 3.6 (3.9-5.7); CHOLESTEROL 163 mg/dL (131-200); HDL CHOLESTEROL 45 mg/dL (40-60); LDL CHOL (CALC.) 101 mg/dL (0-130); TRIGLYCERIDES 85 mg/dL (15-150)
[2020-05-21 18:49] VITALS: BP 132/89
[2020-05-21] MEDS: IBUPROFEN 600 MG TABLET PO PRN (19:25)
[2020-05-22] MEDS: LITHIUM CARBONATE 300 MG CAPSULE PO SCH ×5 (05:52→20:13)
[2020-05-22] MEDS: VALPROIC ACID 250 MG/5 ML SYRUP UDCUP PO SCH ×5 (05:52→20:13)
[2020-05-22 08:48] LABS: LITHIUM 1.32 mmol/L (0.60-1.20)
[2020-05-22] MEDS: THIAMINE 100 MG TABLET PO SCH ×2 (09:00→16:16)
[2020-05-22] MEDS: RisperiDONE 0.5 MG TABLET PO SCH ×4 (09:00→20:13)
[2020-05-22] MEDS: MULTIVITAMINS WITH MINERALS, THERAPEUTIC TABLET PO SCH (09:00)
[2020-05-22] MEDS: FOLIC ACID 1 MG TABLET PO SCH (09:00)
[2020-05-22 09:22] VITALS: BP 131/77
[2020-05-22] MEDS: LORazepam 2 MG TABLET PO PRN ×2 (10:00→16:16)
[2020-05-22 16:37] VITALS: BP 139/77
[2020-05-23] MEDS: LORazepam 2 MG TABLET PO PRN ×2 (00:23→23:56)
[2020-05-23] MEDS: FOLIC ACID 1 MG TABLET PO SCH (08:57)
[2020-05-23] MEDS: VALPROIC ACID 250 MG/5 ML SYRUP UDCUP PO SCH ×4 (08:57→20:40)
[2020-05-23] MEDS: MULTIVITAMINS WITH MINERALS, THERAPEUTIC TABLET PO SCH (08:57)
[2020-05-23] MEDS: LITHIUM CARBONATE 300 MG CAPSULE PO SCH ×4 (08:57→20:40)
[2020-05-23] MEDS: THIAMINE 100 MG TABLET PO SCH ×2 (08:57→16:01)
[2020-05-23] MEDS: RisperiDONE 0.5 MG TABLET PO SCH ×4 (08:58→20:40)
[2020-05-23] MEDS: MAGNESIUM HYDROXIDE SUSPENSION 30 ML UDCUP PO PRN (13:03)
[2020-05-23 16:44] VITALS: BP 123/81
[2020-05-24 08:00] VITALS: BP 118/75
[2020-05-24] MEDS: RisperiDONE 0.5 MG TABLET PO SCH ×4 (10:16→20:20)
[2020-05-24] MEDS: FOLIC ACID 1 MG TABLET PO SCH (10:16)
[2020-05-24] MEDS: LITHIUM CARBONATE 300 MG CAPSULE PO SCH ×4 (10:16→20:21)
[2020-05-24] MEDS: VALPROIC ACID 250 MG/5 ML SYRUP UDCUP PO SCH ×4 (10:16→20:21)
[2020-05-24] MEDS: THIAMINE 100 MG TABLET PO SCH ×2 (10:17→16:10)
[2020-05-24] MEDS: MULTIVITAMINS WITH MINERALS, THERAPEUTIC TABLET PO SCH (10:17)
[2020-05-24 16:11] VITALS: BP 111/74
[2020-05-25 08:07] VITALS: BP 113/79
[2020-05-25] MEDS: LITHIUM CARBONATE 300 MG CAPSULE PO SCH ×4 (08:39→20:03)
[2020-05-25] MEDS: VALPROIC ACID 250 MG/5 ML SYRUP UDCUP PO SCH ×4 (08:39→20:04)
[2020-05-25] MEDS: FOLIC ACID 1 MG TABLET PO SCH (08:39)
[2020-05-25] MEDS: RisperiDONE 0.5 MG TABLET PO SCH ×4 (08:40→20:03)
[2020-05-25] MEDS: MULTIVITAMINS WITH MINERALS, THERAPEUTIC TABLET PO SCH (08:40)
[2020-05-25] MEDS: THIAMINE 100 MG TABLET PO SCH ×2 (08:40→16:23)
[2020-05-25 16:13] VITALS: BP 112/66
[2020-05-25 21:02] LABS: COVID AG,FIA SOURCE NASAL SWAB
[2020-05-25] MEDS: LORazepam 2 MG TABLET PO PRN (23:49)
[2020-05-26 07:28] LABS: LITHIUM 0.78 mmol/L (0.60-1.20)
[2020-05-26 08:00] VITALS: BP 121/80
[2020-05-26] MEDS: LITHIUM CARBONATE 300 MG CAPSULE PO SCH ×4 (08:55→20:08)
[2020-05-26] MEDS: RisperiDONE 0.5 MG TABLET PO SCH ×3 (08:55→16:08)
[2020-05-26] MEDS: FOLIC ACID 1 MG TABLET PO SCH (08:55)
[2020-05-26] MEDS: MULTIVITAMINS WITH MINERALS, THERAPEUTIC TABLET PO SCH (08:55)
[2020-05-26] MEDS: THIAMINE 100 MG TABLET PO SCH ×2 (08:55→16:08)
[2020-05-26] MEDS: VALPROIC ACID 250 MG/5 ML SYRUP UDCUP PO SCH ×4 (08:55→20:08)
[2020-05-26 16:34] VITALS: BP 123/73
[2020-05-26] MEDS: LORazepam 0.5 MG TABLET PO PRN (19:51)
[2020-05-27 07:24] LABS: MAGNESIUM 2.2 mg/dL (1.80-2.40); PHOSPHORUS 4.5 mg/dL (2.5-4.9)
[2020-05-27 08:01] VITALS: BP 145/91
[2020-05-27] MEDS: THIAMINE 100 MG TABLET PO SCH ×2 (08:19→16:03)
[2020-05-27] MEDS: FOLIC ACID 1 MG TABLET PO SCH (08:19)
[2020-05-27] MEDS: RisperiDONE 0.5 MG TABLET PO SCH ×3 (08:19→16:03)
[2020-05-27] MEDS: LITHIUM CARBONATE 300 MG CAPSULE PO SCH ×4 (08:19→20:13)
[2020-05-27] MEDS: VALPROIC ACID 250 MG/5 ML SYRUP UDCUP PO SCH ×4 (08:19→20:13)
[2020-05-27] MEDS: MULTIVITAMINS WITH MINERALS, THERAPEUTIC TABLET PO SCH (08:19)
[2020-05-27 16:31] VITALS: BP 110/65
[2020-05-27] MEDS: LORazepam 0.5 MG TABLET PO PRN ×2 (20:13)
[2020-05-27] MEDS: OLANZapine 5 MG RAPDIS TABLET PO PRN (21:46)
[2020-05-28 08:00] VITALS: BP 122/82
[2020-05-28] MEDS: VALPROIC ACID 250 MG/5 ML SYRUP UDCUP PO SCH ×4 (08:16→20:03)
[2020-05-28] MEDS: LITHIUM CARBONATE 300 MG CAPSULE PO SCH ×4 (08:16→20:03)
[2020-05-28] MEDS: FOLIC ACID 1 MG TABLET PO SCH (08:16)
[2020-05-28] MEDS: RisperiDONE 0.5 MG TABLET PO SCH ×3 (08:16→16:08)
[2020-05-28] MEDS: THIAMINE 100 MG TABLET PO SCH (08:16)
[2020-05-28] MEDS: MULTIVITAMINS WITH MINERALS, THERAPEUTIC TABLET PO SCH (08:16)
[2020-05-28 16:30] VITALS: BP 122/80
[2020-05-28] MEDS: IBUPROFEN 600 MG TABLET PO PRN (17:37)
[2020-05-28] MEDS: LORazepam 0.5 MG TABLET PO PRN (20:03)
[2020-05-29] MEDS: VALPROIC ACID 250 MG/5 ML SYRUP UDCUP PO SCH ×4 (08:25→20:45)
[2020-05-29] MEDS: RisperiDONE 0.5 MG TABLET PO SCH ×3 (08:26→16:14)
[2020-05-29] MEDS: MULTIVITAMINS WITH MINERALS, THERAPEUTIC TABLET PO SCH (08:26)
[2020-05-29] MEDS: LITHIUM CARBONATE 300 MG CAPSULE PO SCH ×4 (08:26→20:45)
[2020-05-29] MEDS: IBUPROFEN 600 MG TABLET PO PRN (08:58)
[2020-05-29 11:15] VITALS: BP 121/77
[2020-05-29 12:55] VITALS: BP 110/64
[2020-05-29 16:08] VITALS: BP 107/73
[2020-05-29] MEDS: LORazepam 0.5 MG TABLET PO PRN (23:36)
[2020-05-30] MEDS: RisperiDONE 0.5 MG TABLET PO SCH ×3 (09:23→16:27)
[2020-05-30] MEDS: VALPROIC ACID 250 MG/5 ML SYRUP UDCUP PO SCH ×4 (09:24→20:05)
[2020-05-30] MEDS: MULTIVITAMINS WITH MINERALS, THERAPEUTIC TABLET PO SCH (09:24)
[2020-05-30] MEDS: LITHIUM CARBONATE 300 MG CAPSULE PO SCH ×4 (09:35→20:05)
[2020-05-30] MEDS: LORazepam 0.5 MG TABLET PO PRN ×2 (11:54→20:05)
[2020-05-30] MEDS: OLANZapine 5 MG RAPDIS TABLET PO PRN (11:54)
[2020-05-30 16:48] VITALS: BP 103/67
[2020-05-31 08:00] VITALS: BP 113/68
[2020-05-31] MEDS: MULTIVITAMINS WITH MINERALS, THERAPEUTIC TABLET PO SCH (08:00)
[2020-05-31] MEDS: RisperiDONE 0.5 MG TABLET PO SCH ×3 (08:00→16:05)
[2020-05-31] MEDS: LITHIUM CARBONATE 300 MG CAPSULE PO SCH ×4 (08:00→20:04)
[2020-05-31] MEDS: VALPROIC ACID 250 MG/5 ML SYRUP UDCUP PO SCH ×4 (08:00→20:05)
[2020-05-31] MEDS: LORazepam 0.5 MG TABLET PO PRN (08:04)
[2020-05-31 16:14] VITALS: BP 115/80
[2020-06-01 08:30] VITALS: BP 122/81
[2020-06-01] MEDS: VALPROIC ACID 250 MG/5 ML SYRUP UDCUP PO SCH ×4 (10:18→20:59)
[2020-06-01] MEDS: RisperiDONE 0.5 MG TABLET PO SCH ×3 (10:18→16:37)
[2020-06-01] MEDS: OLANZapine 5 MG RAPDIS TABLET PO PRN (10:19)
[2020-06-01] MEDS: MULTIVITAMINS WITH MINERALS, THERAPEUTIC TABLET PO SCH (10:19)
[2020-06-01] MEDS: LITHIUM CARBONATE 300 MG CAPSULE PO SCH ×4 (10:19→20:59)
[2020-06-01] MEDS: LORazepam 0.5 MG TABLET PO PRN (10:19)
[2020-06-01 11:41] LABS: COVID AG,FIA SOURCE NASOPHARYNGEAL
[2020-06-01 16:06] VITALS: BP 115/79
[2020-06-02] MEDS: LORazepam 0.5 MG TABLET PO PRN ×2 (03:11→20:57)
[2020-06-02 03:14] VITALS: BP 101/71
[2020-06-02 08:12] VITALS: BP 107/70
[2020-06-02] MEDS: RisperiDONE 0.5 MG TABLET PO SCH ×3 (08:15→15:55)
[2020-06-02] MEDS: LITHIUM CARBONATE 300 MG CAPSULE PO SCH ×4 (08:15→20:12)
[2020-06-02] MEDS: MULTIVITAMINS WITH MINERALS, THERAPEUTIC TABLET PO SCH (08:15)
[2020-06-02] MEDS: VALPROIC ACID 250 MG/5 ML SYRUP UDCUP PO SCH ×4 (08:15→20:12)
[2020-06-02] MEDS: OLANZapine 5 MG RAPDIS TABLET PO PRN (15:51)
[2020-06-02 16:07] VITALS: BP 110/66
[2020-06-03] MEDS: LORazepam 0.5 MG TABLET PO PRN ×3 (01:40→20:25)
[2020-06-03] MEDS: RisperiDONE 0.5 MG TABLET PO SCH ×3 (07:45→15:59)
[2020-06-03] MEDS: LITHIUM CARBONATE 300 MG CAPSULE PO SCH ×4 (07:45→20:25)
[2020-06-03] MEDS: VALPROIC ACID 250 MG/5 ML SYRUP UDCUP PO SCH ×4 (07:45→20:25)
[2020-06-03] MEDS: MULTIVITAMINS WITH MINERALS, THERAPEUTIC TABLET PO SCH (07:46)
[2020-06-03 08:05] VITALS: BP 125/51
[2020-06-03] MEDS: OLANZapine 5 MG RAPDIS TABLET PO PRN ×2 (15:59→23:37)
[2020-06-03 16:30] VITALS: BP 137/84
[2020-06-04] MEDS: LORazepam 0.5 MG TABLET PO PRN ×2 (00:30→08:41)
[2020-06-04 08:19] VITALS: BP 133/87
[2020-06-04] MEDS: RisperiDONE 0.5 MG TABLET PO SCH ×3 (08:39→15:52)
[2020-06-04] MEDS: OLANZapine 5 MG RAPDIS TABLET PO PRN ×3 (08:41→20:42)
[2020-06-04] MEDS: LITHIUM CARBONATE 300 MG CAPSULE PO SCH ×4 (08:41→20:09)
[2020-06-04] MEDS: VALPROIC ACID 250 MG/5 ML SYRUP UDCUP PO SCH ×4 (08:41→20:09)
[2020-06-04] MEDS: MULTIVITAMINS WITH MINERALS, THERAPEUTIC TABLET PO SCH (08:41)
[2020-06-04 16:37] VITALS: BP 139/78
[2020-06-05] MEDS: LORazepam 0.5 MG TABLET PO PRN (01:38)
[2020-06-05 08:00] VITALS: BP 138/83
[2020-06-05] MEDS: LITHIUM CARBONATE 300 MG CAPSULE PO SCH ×4 (09:19→20:05)
[2020-06-05] MEDS: RisperiDONE 0.5 MG TABLET PO SCH ×3 (09:19→16:14)
[2020-06-05] MEDS: MULTIVITAMINS WITH MINERALS, THERAPEUTIC TABLET PO SCH (09:19)
[2020-06-05] MEDS: VALPROIC ACID 250 MG/5 ML SYRUP UDCUP PO SCH ×4 (09:20→20:05)
[2020-06-05] MEDS: OLANZapine 5 MG RAPDIS TABLET PO PRN ×2 (15:50→20:05)
[2020-06-05 16:12] VITALS: BP 107/62
[2020-06-06] MEDS: LORazepam 0.5 MG TABLET PO PRN ×3 (07:39→23:27)
[2020-06-06 08:00] VITALS: BP 122/67
[2020-06-06] MEDS: VALPROIC ACID 250 MG/5 ML SYRUP UDCUP PO SCH ×4 (08:11→20:18)
[2020-06-06] MEDS: RisperiDONE 0.5 MG TABLET PO SCH ×3 (08:11→16:23)
[2020-06-06] MEDS: MULTIVITAMINS WITH MINERALS, THERAPEUTIC TABLET PO SCH (08:12)
[2020-06-06] MEDS: LITHIUM CARBONATE 300 MG CAPSULE PO SCH ×4 (08:12→20:18)
[2020-06-06] MEDS: OLANZapine 5 MG RAPDIS TABLET PO PRN (11:05)
[2020-06-06] MEDS: PROMETHAZINE HCL 25 MG TABLET PO PRN (11:59)
[2020-06-06 16:00] VITALS: BP 120/76
[2020-06-07 08:00] VITALS: BP 111/70
[2020-06-07] MEDS: LITHIUM CARBONATE 300 MG CAPSULE PO SCH ×4 (08:20→20:22)
[2020-06-07] MEDS: RisperiDONE 0.5 MG TABLET PO SCH ×3 (08:20→16:06)
[2020-06-07] MEDS: VALPROIC ACID 250 MG/5 ML SYRUP UDCUP PO SCH ×4 (08:20→20:22)
[2020-06-07] MEDS: MULTIVITAMINS WITH MINERALS, THERAPEUTIC TABLET PO SCH (08:20)
[2020-06-07] MEDS: OLANZapine 5 MG RAPDIS TABLET PO PRN (08:20)
[2020-06-07] MEDS: LORazepam 0.5 MG TABLET PO PRN ×2 (10:03→23:16)
[2020-06-07] MEDS ORDERED: ChlorproMAZINE HCL 50 MG/2 ML AMP ONE (11:39)
[2020-06-07] MEDS ORDERED: DiphenhydrAMINE HCL 50 MG/ML VIAL ONE (11:39)
[2020-06-07] MEDS ORDERED: LORazepam 2 MG/ML VIAL ONE (11:39)
[2020-06-07] MEDS ORDERED: ChlorproMAZINE HCL 50 MG/2 ML AMP IM ONE (11:45)
[2020-06-07] MEDS ORDERED: LORazepam 2 MG/ML VIAL IM ONE (11:45)
[2020-06-07] MEDS ORDERED: DiphenhydrAMINE HCL 50 MG/ML VIAL IM ONE (11:45)
[2020-06-07 16:00] VITALS: BP 107/63
[2020-06-07] MEDS: IBUPROFEN 600 MG TABLET PO PRN (19:56)
[2020-06-08] MEDS: LORazepam 0.5 MG TABLET PO PRN ×3 (08:13→20:11)
[2020-06-08] MEDS: LITHIUM CARBONATE 300 MG CAPSULE PO SCH ×4 (08:13→20:15)
[2020-06-08] MEDS: PROMETHAZINE HCL 25 MG TABLET PO PRN ×2 (08:13→12:55)
[2020-06-08] MEDS: MULTIVITAMINS WITH MINERALS, THERAPEUTIC TABLET PO SCH (08:13)
[2020-06-08] MEDS: OLANZapine 5 MG RAPDIS TABLET PO PRN ×2 (08:13→12:55)
[2020-06-08] MEDS: RisperiDONE 0.5 MG TABLET PO SCH ×4 (08:14→20:11)
[2020-06-08] MEDS: VALPROIC ACID 250 MG/5 ML SYRUP UDCUP PO SCH ×4 (08:14→20:11)
[2020-06-08 10:38] VITALS: BP 129/83
[2020-06-08] MEDS ORDERED: DiphenhydrAMINE HCL 50 MG/ML VIAL IM ONE (10:45)
[2020-06-08] MEDS ORDERED: LORazepam 2 MG/ML VIAL IM ONE (10:45)
[2020-06-08] MEDS ORDERED: HALOPERIDOL LACTATE 5 MG/ML VIAL IM ONE (10:45)
[2020-06-08] MEDS: IBUPROFEN 600 MG TABLET PO PRN (10:46)
[2020-06-08] MEDS ORDERED: DiphenhydrAMINE HCL 50 MG/ML VIAL ONE (10:53)
[2020-06-08] MEDS ORDERED: LORazepam 2 MG/ML VIAL ONE (10:53)
[2020-06-08] MEDS ORDERED: HALOPERIDOL LACTATE 5 MG/ML VIAL ONE (10:53)
[2020-06-08 17:48] VITALS: BP 143/84
[2020-06-09] MEDS: LORazepam 0.5 MG TABLET PO PRN (08:06)
[2020-06-09] MEDS: VALPROIC ACID 250 MG/5 ML SYRUP UDCUP PO SCH ×4 (08:06→20:19)
[2020-06-09] MEDS: LITHIUM CARBONATE 300 MG CAPSULE PO SCH ×4 (08:06→20:18)
[2020-06-09] MEDS: PROMETHAZINE HCL 25 MG TABLET PO PRN (08:06)
[2020-06-09] MEDS: RisperiDONE 0.5 MG TABLET PO SCH ×4 (08:07→20:19)
[2020-06-09] MEDS: NALTREXONE HCL 50 MG TABLET PO SCH (08:07)
[2020-06-09] MEDS: OMEGA-3/DHA/EPA/FISH OIL 1,000 MG CAPSULE PO SCH (08:07)
[2020-06-09] MEDS: OLANZapine 5 MG RAPDIS TABLET PO PRN ×3 (08:08→19:40)
[2020-06-09] MEDS: MULTIVITAMINS WITH MINERALS, THERAPEUTIC TABLET PO SCH (08:08)
[2020-06-09 08:30] VITALS: BP 128/84
[2020-06-09] MEDS ORDERED: LORazepam 2 MG/ML VIAL IM ONE (09:30)
[2020-06-09] MEDS ORDERED: DiphenhydrAMINE HCL 50 MG/ML VIAL IM ONE (09:30)
[2020-06-09] MEDS ORDERED: HALOPERIDOL LACTATE 5 MG/ML VIAL IM ONE (09:30)
[2020-06-09] MEDS ORDERED: LORazepam 2 MG/ML VIAL ONE (09:33)
[2020-06-09] MEDS ORDERED: HALOPERIDOL LACTATE 5 MG/ML VIAL ONE (09:33)
[2020-06-09] MEDS ORDERED: DiphenhydrAMINE HCL 50 MG/ML VIAL ONE (09:33)
[2020-06-09] MEDS: ACETAMINOPHEN 325 MG TABLET PO PRN (16:01)
[2020-06-09 16:05] VITALS: BP 123/81
[2020-06-09] MEDS ORDERED: ATENOLOL 25 MG TABLET PO SCH (21:00)
[2020-06-09 21:03] VITALS: BP 123/78
[2020-06-10] MEDS: LITHIUM CARBONATE 300 MG CAPSULE PO SCH ×4 (08:08→20:24)
[2020-06-10] MEDS: OMEGA-3/DHA/EPA/FISH OIL 1,000 MG CAPSULE PO SCH (08:09)
[2020-06-10] MEDS: NALTREXONE HCL 50 MG TABLET PO SCH (08:09)
[2020-06-10] MEDS: OLANZapine 5 MG RAPDIS TABLET PO PRN ×3 (08:09→19:35)
[2020-06-10] MEDS: MULTIVITAMINS WITH MINERALS, THERAPEUTIC TABLET PO SCH (08:09)
[2020-06-10] MEDS: VALPROIC ACID 250 MG/5 ML SYRUP UDCUP PO SCH ×4 (08:09→20:25)
[2020-06-10] MEDS: RisperiDONE 0.5 MG TABLET PO SCH ×4 (08:09→20:24)
[2020-06-10 16:19] VITALS: BP 113/77
[2020-06-10] MEDS: ATENOLOL 25 MG TABLET PO SCH (21:00)
[2020-06-10 21:12] VITALS: BP 111/65
[2020-06-11] MEDS: MULTIVITAMINS WITH MINERALS, THERAPEUTIC TABLET PO SCH (08:37)
[2020-06-11] MEDS: VALPROIC ACID 250 MG/5 ML SYRUP UDCUP PO SCH ×4 (08:37→20:10)
[2020-06-11] MEDS: RisperiDONE 0.5 MG TABLET PO SCH ×4 (08:37→20:10)
[2020-06-11] MEDS: OMEGA-3/DHA/EPA/FISH OIL 1,000 MG CAPSULE PO SCH (08:37)
[2020-06-11] MEDS: LITHIUM CARBONATE 300 MG CAPSULE PO SCH ×4 (08:38→20:10)
[2020-06-11] MEDS: NALTREXONE HCL 50 MG TABLET PO SCH (08:38)
[2020-06-11 09:44] VITALS: BP 108/68
[2020-06-11] MEDS: IBUPROFEN 600 MG TABLET PO PRN (14:07)
[2020-06-11] MEDS: OLANZapine 5 MG RAPDIS TABLET PO PRN ×2 (15:34→19:55)
[2020-06-11 16:04] VITALS: BP 145/84
[2020-06-11 21:17] VITALS: BP 135/78
[2020-06-11] MEDS: ATENOLOL 25 MG TABLET PO SCH (21:19)
[2020-06-12] MEDS: LORazepam 0.5 MG TABLET PO PRN (01:13)
[2020-06-12] MEDS: OLANZapine 5 MG RAPDIS TABLET PO PRN (01:14)
[2020-06-12 01:21] VITALS: BP 103/66
[2020-06-12] MEDS: VALPROIC ACID 250 MG/5 ML SYRUP UDCUP PO SCH ×4 (07:59→20:34)
[2020-06-12] MEDS: OMEPRAZOLE 20 MG CAPSULE PO PRN (08:00)
[2020-06-12] MEDS: MULTIVITAMINS WITH MINERALS, THERAPEUTIC TABLET PO SCH (08:00)
[2020-06-12] MEDS: OMEGA-3/DHA/EPA/FISH OIL 1,000 MG CAPSULE PO SCH (08:01)
[2020-06-12] MEDS: LITHIUM CARBONATE 300 MG CAPSULE PO SCH ×4 (08:01→20:34)
[2020-06-12] MEDS: NALTREXONE HCL 50 MG TABLET PO SCH (08:01)
[2020-06-12] MEDS: RisperiDONE 0.5 MG TABLET PO SCH ×4 (08:01→20:34)
[2020-06-12 09:50] VITALS: BP 145/70
[2020-06-12 16:48] VITALS: BP 131/78
[2020-06-12 19:52] LABS: COVID AG,FIA SOURCE NASAL SWAB
[2020-06-12] MEDS: ATENOLOL 25 MG TABLET PO SCH (20:34)
[2020-06-13 08:00] VITALS: BP 88/56
[2020-06-13] MEDS: LITHIUM CARBONATE 300 MG CAPSULE PO SCH ×4 (08:37→20:08)
[2020-06-13] MEDS: RisperiDONE 0.5 MG TABLET PO SCH ×4 (08:37→20:08)
[2020-06-13] MEDS: MULTIVITAMINS WITH MINERALS, THERAPEUTIC TABLET PO SCH (08:37)
[2020-06-13] MEDS: VALPROIC ACID 250 MG/5 ML SYRUP UDCUP PO SCH ×4 (08:37→20:08)
[2020-06-13] MEDS: OMEGA-3/DHA/EPA/FISH OIL 1,000 MG CAPSULE PO SCH (08:37)
[2020-06-13] MEDS: NALTREXONE HCL 50 MG TABLET PO SCH (08:45)
[2020-06-13] MEDS: MAGNESIUM HYDROXIDE SUSPENSION 30 ML UDCUP PO PRN (11:15)
[2020-06-13 16:00] VITALS: BP 97/62
[2020-06-13] MEDS: ATENOLOL 25 MG TABLET PO SCH (20:07)
[2020-06-14 08:00] VITALS: BP 108/68
[2020-06-14] MEDS: NALTREXONE HCL 50 MG TABLET PO SCH (09:50)
[2020-06-14] MEDS: LITHIUM CARBONATE 300 MG CAPSULE PO SCH ×4 (10:03→20:15)
[2020-06-14] MEDS: OMEGA-3/DHA/EPA/FISH OIL 1,000 MG CAPSULE PO SCH (10:04)
[2020-06-14] MEDS: MULTIVITAMINS WITH MINERALS, THERAPEUTIC TABLET PO SCH (10:04)
[2020-06-14] MEDS: VALPROIC ACID 250 MG/5 ML SYRUP UDCUP PO SCH ×4 (10:05→20:14)
[2020-06-14] MEDS: RisperiDONE 0.5 MG TABLET PO SCH ×4 (10:12→20:16)
[2020-06-14 16:00] VITALS: BP 98/67
[2020-06-14] MEDS: ATENOLOL 25 MG TABLET PO SCH (20:15)
[2020-06-15 00:40] VITALS: BP 98/62
[2020-06-15] MEDS: IBUPROFEN 600 MG TABLET PO PRN (00:44)
[2020-06-15 01:29] LABS: APPEARANCE,URINE CLOUDY (CLEAR); BILIRUBIN,URINE NEGATIVE (NEGATIVE); GLUCOSE, URINE (UA) NEGATIVE (NEGATIVE); KETONES,URINE 15 mg/dL (NEGATIVE); LEUKOCYTE ESTERASE ,URINE NEGATIVE (NEGATIVE); NITRATE,URINE NEGATIVE (NEGATIVE); OCCULT BLOOD,URINE NEGATIVE (NEGATIVE); PH,URINE 7.5 (5.0-8.0); PROTEIN,URINE NEGATIVE (NEGATIVE); UROBILINOGEN,URINE 0.2 mg/dL (<=1.0)
[2020-06-15 08:00] VITALS: BP 101/59
[2020-06-15] MEDS: LITHIUM CARBONATE 300 MG CAPSULE PO SCH ×4 (10:29→20:41)
[2020-06-15] MEDS: MULTIVITAMINS WITH MINERALS, THERAPEUTIC TABLET PO SCH (10:29)
[2020-06-15] MEDS: NALTREXONE HCL 50 MG TABLET PO SCH (10:29)
[2020-06-15] MEDS: OMEGA-3/DHA/EPA/FISH OIL 1,000 MG CAPSULE PO SCH (10:29)
[2020-06-15] MEDS: RisperiDONE 0.5 MG TABLET PO SCH ×4 (10:30→20:42)
[2020-06-15] MEDS: VALPROIC ACID 250 MG/5 ML SYRUP UDCUP PO SCH ×4 (10:31→20:41)
[2020-06-15 10:58] LABS: COVID AG,FIA SOURCE NASOPHARYNGEAL
[2020-06-15] MEDS ORDERED: DiphenhydrAMINE HCL 50 MG/ML VIAL ONE (15:58)
[2020-06-15] MEDS ORDERED: HALOPERIDOL LACTATE 5 MG/ML VIAL IM ONE (16:00)
[2020-06-15] MEDS ORDERED: DiphenhydrAMINE HCL 50 MG/ML VIAL IM ONE (16:00)
[2020-06-15] MEDS ORDERED: HALOPERIDOL LACTATE 5 MG/ML VIAL ONE ×2 (16:02)
[2020-06-15 16:17] VITALS: BP 118/71
[2020-06-15] MEDS: ATENOLOL 25 MG TABLET PO SCH (21:00)
[2020-06-16] MEDS: OMEGA-3/DHA/EPA/FISH OIL 1,000 MG CAPSULE PO SCH (07:45)
[2020-06-16] MEDS: OLANZapine 5 MG RAPDIS TABLET PO PRN ×2 (07:45→12:28)
[2020-06-16] MEDS: FLUoxetine HCL 10 MG CAPSULE PO SCH (07:45)
[2020-06-16] MEDS: LITHIUM CARBONATE 300 MG CAPSULE PO SCH ×4 (07:45→20:48)
[2020-06-16] MEDS: MULTIVITAMINS WITH MINERALS, THERAPEUTIC TABLET PO SCH (07:45)
[2020-06-16] MEDS: RisperiDONE 0.5 MG TABLET PO SCH ×4 (07:46→20:48)
[2020-06-16] MEDS: VALPROIC ACID 250 MG/5 ML SYRUP UDCUP PO SCH ×4 (07:46→20:48)
[2020-06-16] MEDS: NALTREXONE HCL 50 MG TABLET PO SCH (07:46)
[2020-06-16 08:11] VITALS: BP 131/85
[2020-06-16 17:12] VITALS: BP 100/60
[2020-06-16 20:01] VITALS: BP 101/58
[2020-06-16] MEDS: ATENOLOL 25 MG TABLET PO SCH (20:52)
[2020-06-16] MEDS: LORazepam 0.5 MG TABLET PO PRN (23:44)
[2020-06-17 04:12] VITALS: BP 99/64
[2020-06-17 08:05] VITALS: BP 103/71
[2020-06-17] MEDS: OLANZapine 5 MG RAPDIS TABLET PO PRN ×3 (10:51→23:47)
[2020-06-17] MEDS: VALPROIC ACID 250 MG/5 ML SYRUP UDCUP PO SCH ×5 (10:51→21:26)
[2020-06-17] MEDS: LITHIUM CARBONATE 300 MG CAPSULE PO SCH ×5 (10:51→21:26)
[2020-06-17] MEDS: RisperiDONE 0.5 MG TABLET PO SCH ×5 (10:51→21:26)
[2020-06-17] MEDS: MULTIVITAMINS WITH MINERALS, THERAPEUTIC TABLET PO SCH (10:52)
[2020-06-17] MEDS: OMEGA-3/DHA/EPA/FISH OIL 1,000 MG CAPSULE PO SCH (10:52)
[2020-06-17] MEDS: NALTREXONE HCL 50 MG TABLET PO SCH (10:52)
[2020-06-17] MEDS: FLUoxetine HCL 10 MG CAPSULE PO SCH (10:52)
[2020-06-17 16:52] VITALS: BP 103/59
[2020-06-17] MEDS: ATENOLOL 25 MG TABLET PO SCH (21:00)
[2020-06-17 21:17] VITALS: BP 105/58
[2020-06-17] MEDS: LORazepam 0.5 MG TABLET PO PRN (23:46)
[2020-06-18] MEDS: NALTREXONE HCL 50 MG TABLET PO SCH (09:19)
[2020-06-18] MEDS: OMEGA-3/DHA/EPA/FISH OIL 1,000 MG CAPSULE PO SCH (09:19)
[2020-06-18] MEDS: MULTIVITAMINS WITH MINERALS, THERAPEUTIC TABLET PO SCH (09:19)
[2020-06-18] MEDS: RisperiDONE 0.5 MG TABLET PO SCH ×4 (09:19→20:58)
[2020-06-18] MEDS: VALPROIC ACID 250 MG/5 ML SYRUP UDCUP PO SCH ×4 (09:19→20:59)
[2020-06-18] MEDS: FLUoxetine HCL 10 MG CAPSULE PO SCH (09:20)
[2020-06-18] MEDS: OMEPRAZOLE 20 MG CAPSULE PO PRN (09:20)
[2020-06-18] MEDS: LITHIUM CARBONATE 300 MG CAPSULE PO SCH ×4 (09:20→20:59)
[2020-06-18] MEDS: OLANZapine 5 MG RAPDIS TABLET PO PRN (12:18)
[2020-06-18 16:34] VITALS: BP 108/62
[2020-06-18] MEDS: ACETAMINOPHEN 325 MG TABLET PO PRN (16:37)
[2020-06-18 16:38] VITALS: BP 108/62
[2020-06-18] MEDS: ATENOLOL 25 MG TABLET PO SCH (21:00)
[2020-06-18 21:22] VITALS: BP 102/65
[2020-06-19 08:00] VITALS: BP 111/78
[2020-06-19] MEDS: NALTREXONE HCL 50 MG TABLET PO SCH (08:07)
[2020-06-19] MEDS: VALPROIC ACID 250 MG/5 ML SYRUP UDCUP PO SCH ×3 (08:07→15:52)
[2020-06-19] MEDS: RisperiDONE 0.5 MG TABLET PO SCH ×3 (08:07→15:52)
[2020-06-19] MEDS: FLUoxetine HCL 10 MG CAPSULE PO SCH (08:07)
[2020-06-19] MEDS: OLANZapine 5 MG RAPDIS TABLET PO PRN ×2 (08:07→12:48)
[2020-06-19] MEDS: MULTIVITAMINS WITH MINERALS, THERAPEUTIC TABLET PO SCH (08:08)
[2020-06-19] MEDS: OMEGA-3/DHA/EPA/FISH OIL 1,000 MG CAPSULE PO SCH (08:08)
[2020-06-19] MEDS: LITHIUM CARBONATE 300 MG CAPSULE PO SCH ×3 (08:08→15:52)
[2020-06-19] MEDS ORDERED: NALT50TA PO (09:44)
[2020-06-19] MEDS ORDERED: OMEG-135 PO (09:44)
[2020-06-19] MEDS ORDERED: RISP0.5T61 PO (09:44)
[2020-06-19] MEDS ORDERED: LITH300C3 PO (09:44)
[2020-06-19] MEDS ORDERED: VALP250S23 PO (09:44)
[2020-06-19] MEDS ORDERED: PROZ10 PO (09:44)
[2020-06-19] MEDS ORDERED: DiphenhydrAMINE HCL 50 MG/ML VIAL IM ONE (09:45)
[2020-06-19] MEDS ORDERED: HALOPERIDOL LACTATE 5 MG/ML VIAL IM ONE (09:45)
[2020-06-19] MEDS ORDERED: MELA5TAB3 PO (09:45)
[2020-06-19] MEDS ORDERED: ATEN-73 PO (13:25)
== END 2020-06-19 20:21 | disposition home or self-care (01) | DRG 750 ==
LOC: 3EI 05-18 00:40 → 3EC 05-19 10:47
PROVIDERS: ADMIT Psychiatry & Neurology Psychiatry; ATTEND Psychiatry & Neurology Psychiatry
DX: F25.0 Schizoaffective disorder, bipolar type (principal); I10 Essential (primary) hypertension; Z91.14 Patient's other noncompliance with medication regimen; F84.0 Autistic disorder; Z91.19 Patient's noncompliance with other medical treatment and regimen; Z86.16 Personal history of COVID-19; E03.9 Hypothyroidism, unspecified; E55.9 Vitamin D deficiency, unspecified; Z98.51 Tubal ligation status; K21.9 Gastro-esophageal reflux disease without esophagitis; K59.00 Constipation, unspecified; F41.9 Anxiety disorder, unspecified; G47.00 Insomnia, unspecified; Z20.822 Contact with and (suspected) exposure to COVID-19
CPT/HCPCS: 83735; 84100; 87081; 87426; J1200; J1630; J2060; J3230

== ENCOUNTER 2020-10-29 20:08 | Inpatient (IN) | payer MEDICAID, OTHER ==
[~2020-10-29] VITALS: Ht 149.9 cm; Wt 61.3 kg
[~2020-10-29 20:08] MED LIST changes: +ATEN-73 PO; -BUSP10TA23 PO; +FLUO10CA24 PO; -GUAN1TAB2 PO; +MELA5TAB3 PO; +NALT50TA PO; -OLAN5TAB27 PO; +OMEG-135 PO; +RISP0.5T61 PO; -TRAZ-257 PO; +VALP250S23 PO
[2020-10-29] MEDS ORDERED: QUET100T PO (20:21)
[2020-10-29] MEDS ORDERED: QUET200T PO (20:21)
[2020-10-29] MEDS ORDERED: LEVO25TA9 PO (20:21)
[2020-10-29] MEDS ORDERED: HYDR-3831 PO (20:21)
[2020-10-29 22:03] LABS: BASOPHILS % (AUTO) 0.5 % (0.0-2.0); EOSINOPHILS % (AUTO) 2.4 % (1.0-6.0); HEMATOCRIT 41.7 % (36-46); HEMOGLOBIN 13.9 g/dL (12.0-16.0); LYMPHOCYTES # (AUTO) 2.5 K/uL (1.0-4.8); LYMPHOCYTES % (AUTO) 42.4 % (22.0-44.0); MEAN CORPUSCULAR HEMOGLOBIN 32.2 pg (26.0-34.0); MEAN CORPUSCULAR HGB CONC 33.3 G/dL (31.0-37.0); MEAN CORPUSCULAR VOLUME 97 fL (80-100); MONOCYTES # (AUTO) 0.4 K/uL (0.1-1.0); MONOCYTES % (AUTO) 7.5 % (2.0-9.0); NEUTROPHILS # (AUTO) 2.8 K/uL (1.8-7.7); NEUTROPHILS % (AUTO) 47.2 % (40.0-70.0); PLATELET COUNT (AUTO) 171 K/uL (150-450); RED BLOOD CELL COUNT(AUTO) 4.31 MIL/uL (4.00-5.20); RED CELL DISTRIBUTION WIDTH 12.4 % (11.5-14.5)
[2020-10-29 22:11] LABS: ANION GAP 9 mmol/L (8-16); CARBON DIOXIDE 23 mmol/L (22-29); CHLORIDE 107 mmol/L (98-107); CREATININE 0.56 mg/dL (0.60-1.30); GLOMERULAR FILTR. RATE CALC > 60 mL/min (>60); GLUCOSE,RANDOM 83 mg/dL (70-110); SODIUM SERUM 139 mmol/L (136-145); UREA NITROGEN, BLOOD 11 mg/dL (7-18)
[2020-10-29 22:25] LABS: ALANINE AMINOTRANSFERASE 12 U/L (12-78); ALBUMIN 3.4 g/dL (3.4-5.0); ALKALINE PHOSPHATASE 72 U/L (46-116); ASPARTATE AMINOTRANSFERASE 14 U/L (15-37); BILIRUBIN,TOTAL 0.2 mg/dL (0.1-1.0); HCG,QUANTITATIVE < 1 mIU/mL (0-6)
[2020-10-29] MEDS ORDERED: ZOLPIDEM TARTRATE 10 MG TABLET PO PRN (22:45)
[2020-10-29] MEDS ORDERED: LORazepam 2 MG TABLET PO PRN (22:45)
[2020-10-29] MEDS ORDERED: HALOPERIDOL 5 MG TABLET PO PRN (22:45)
[2020-10-29 22:47] LABS: AMPHET/METH SCREEN,URINE NEGATIVE (NEGATIVE); BARBITURATE SCREEN, URINE NEGATIVE (NEGATIVE); BENZODIAZEPINES SCREEN,URINE NEGATIVE (NEGATIVE); CANNABINOID SCREEN,URINE NEGATIVE (NEGATIVE); COCAINE SCREEN,URINE NEGATIVE (NEGATIVE); METHADONE SCREEN, URINE NEGATIVE (NEGATIVE); OPIATE SCREEN,URINE NEGATIVE (NEGATIVE)
[2020-10-29 22:48] LABS: PHENCYCLIDINE SCREEN,URINE NEGATIVE (NEGATIVE)
[2020-10-29] MEDS ORDERED: LORazepam 2 MG/ML VIAL IM ONE (23:15)
[2020-10-29] MEDS ORDERED: DiphenhydrAMINE HCL 50 MG/ML VIAL IM ONE (23:15)
[2020-10-29] MEDS ORDERED: HALOPERIDOL LACTATE 5 MG/ML VIAL IM ONE (23:15)
[2020-10-29 23:46] LABS: VALPROIC ACID 67 mcg/mL (50-100)
[2020-10-30] MEDS ORDERED: DIVA-111 PO (00:46)
[2020-10-30 01:34] LABS: COVID AG,FIA SOURCE NASOPHARYNGEAL
[2020-10-30 01:44] LABS: CHOL/HDL RATIO 4.5 (3.9-5.7); CHOLESTEROL 189 mg/dL (131-200); HDL CHOLESTEROL 42 mg/dL (40-60); LDL CHOL (CALC.) 118 mg/dL (0-130); TRIGLYCERIDES 147 mg/dL (15-150)
[2020-10-30] MEDS ORDERED: ZOLPIDEM TARTRATE 10 MG TABLET PO PRN (01:45)
[2020-10-30 02:51] LABS: APPEARANCE,URINE CLEAR (CLEAR); BILIRUBIN,URINE NEGATIVE (NEGATIVE); GLUCOSE, URINE (UA) NEGATIVE (NEGATIVE); KETONES,URINE NEGATIVE (NEGATIVE); LEUKOCYTE ESTERASE ,URINE NEGATIVE (NEGATIVE); NITRATE,URINE NEGATIVE (NEGATIVE); OCCULT BLOOD,URINE NEGATIVE (NEGATIVE); PROTEIN,URINE NEGATIVE (NEGATIVE); UROBILINOGEN,URINE 0.2 mg/dL (<=1.0)
[2020-10-30] MEDS ORDERED: DiphenhydrAMINE HCL 50 MG/ML VIAL IM ONE (20:00)
[2020-10-30] MEDS ORDERED: LORazepam 2 MG/ML VIAL IM ONE ×2 (20:00→22:30)
[2020-10-30] MEDS ORDERED: HALOPERIDOL LACTATE 5 MG/ML VIAL IM ONE (20:00)
[2020-10-31] MEDS ORDERED: LORazepam 2 MG/ML VIAL IM ONE (15:30)
[2020-10-31] MEDS ORDERED: HALOPERIDOL LACTATE 5 MG/ML VIAL IM ONE (15:30)
[2020-10-31] MEDS ORDERED: DiphenhydrAMINE HCL 50 MG/ML VIAL IM ONE (15:30)
[2020-10-31 17:45] VITALS: BP 111/76
[2020-10-31] MEDS: LORazepam 2 MG TABLET PO PRN (22:34)
[2020-10-31] MEDS: HALOPERIDOL 5 MG TABLET PO PRN (22:34)
[2020-11-01] MEDS: LEVOTHYROXINE SODIUM 75 MCG TABLET PO SCH (06:53)
[2020-11-01] MEDS ORDERED: CloNIDine HCL 0.1 MG TABLET PO PRN (07:00)
[2020-11-01] MEDS ORDERED: MAG HYDROX/AL HYDROX/SIMETH ES 30 ML SUSPENSION UDCUP PO PRN (07:00)
[2020-11-01] MEDS ORDERED: PETROLATUM,WHITE 28 GM JELLY TP PRN (07:00)
[2020-11-01] MEDS ORDERED: ALBUTEROL SULFATE HFA 90 MCG/PUFF 8 GM INHALER IH PRN (07:00)
[2020-11-01] MEDS ORDERED: BACITRACIN 28 GM OINTMENT TP PRN (07:00)
[2020-11-01] MEDS ORDERED: OMEPRAZOLE 20 MG CAPSULE PO PRN (07:00)
[2020-11-01] MEDS ORDERED: BENZOCAINE/MENTHOL LOZENGE PO PRN (07:00)
[2020-11-01] MEDS ORDERED: DOCUSATE SODIUM 100 MG CAPSULE PO PRN (07:00)
[2020-11-01] MEDS ORDERED: ONDANSETRON HCL 4 MG TABLET PO PRN (07:00)
[2020-11-01] MEDS ORDERED: ACETAMINOPHEN 325 MG TABLET PO PRN (07:00)
[2020-11-01] MEDS ORDERED: LOPERAMIDE HCL 2 MG CAPSULE PO PRN (07:00)
[2020-11-01] MEDS ORDERED: MAGNESIUM HYDROXIDE SUSPENSION 30 ML UDCUP PO PRN (07:00)
[2020-11-01 08:04] VITALS: BP 99/72
[2020-11-01] MEDS: DIVALPROEX SODIUM 250 MG DR TABLET PO SCH ×3 (09:03→17:25)
[2020-11-01] MEDS ORDERED: HALOPERIDOL LACTATE 5 MG/ML VIAL IM ONE (11:45)
[2020-11-01] MEDS ORDERED: DiphenhydrAMINE HCL 50 MG/ML VIAL IM ONE (11:45)
[2020-11-01] MEDS ORDERED: LORazepam 2 MG/ML VIAL IM ONE (11:45)
[2020-11-01] MEDS ORDERED: DiphenhydrAMINE HCL 50 MG/ML VIAL ONE (11:48)
[2020-11-01 17:05] VITALS: BP 109/77
[2020-11-02] MEDS: LEVOTHYROXINE SODIUM 75 MCG TABLET PO SCH (06:48)
[2020-11-02] MEDS: DIVALPROEX SODIUM 250 MG DR TABLET PO SCH ×3 (10:10→16:22)
[2020-11-02] MEDS: LORazepam 2 MG TABLET PO PRN (13:40)
[2020-11-02 16:08] VITALS: BP 117/67
[2020-11-02] MEDS ORDERED: LEVO75 PO (20:32)
[2020-11-02] MEDS: QUEtiapine FUMARATE 200 MG TABLET PO SCH ×2 (20:55→21:00)
[2020-11-03] MEDS: IBUPROFEN 600 MG TABLET PO PRN ×2 (05:43→10:17)
[2020-11-03] MEDS: LEVOTHYROXINE SODIUM 75 MCG TABLET PO SCH (06:53)
[2020-11-03 08:07] VITALS: BP 113/78
[2020-11-03] MEDS: HALOPERIDOL 5 MG TABLET PO PRN ×2 (08:41→16:29)
[2020-11-03] MEDS: QUEtiapine FUMARATE 100 MG TABLET PO SCH (08:41)
[2020-11-03] MEDS: DIVALPROEX SODIUM 250 MG DR TABLET PO SCH ×3 (08:41→16:29)
[2020-11-03] MEDS: LORazepam 2 MG TABLET PO PRN (08:41)
[2020-11-03] MEDS: HydrOXYzine HCL 25 MG TABLET PO SCH ×3 (08:41→16:29)
[2020-11-04] MEDS: LEVOTHYROXINE SODIUM 75 MCG TABLET PO SCH (06:55)
[2020-11-04 08:03] VITALS: BP 95/57
[2020-11-04] MEDS: HydrOXYzine HCL 25 MG TABLET PO SCH ×3 (10:11→16:28)
[2020-11-04] MEDS: QUEtiapine FUMARATE 100 MG TABLET PO SCH (10:11)
[2020-11-04] MEDS: DIVALPROEX SODIUM 250 MG DR TABLET PO SCH ×3 (10:11→16:28)
[2020-11-04] MEDS: LORazepam 2 MG TABLET PO PRN (13:01)
[2020-11-04] MEDS: HALOPERIDOL 5 MG TABLET PO PRN ×2 (13:01→19:24)
[2020-11-04 16:08] VITALS: BP 110/65
[2020-11-04] MEDS: QUEtiapine FUMARATE 300 MG TABLET PO SCH (20:27)
[2020-11-05] MEDS: LEVOTHYROXINE SODIUM 75 MCG TABLET PO SCH (06:51)
[2020-11-05 09:50] VITALS: BP 131/102
[2020-11-05] MEDS: QUEtiapine FUMARATE 100 MG TABLET PO SCH (10:08)
[2020-11-05] MEDS: DIVALPROEX SODIUM 500 MG DR TABLET PO SCH ×2 (10:08→13:37)
[2020-11-05] MEDS: HydrOXYzine HCL 25 MG TABLET PO SCH ×3 (10:08→17:05)
[2020-11-05] MEDS: LORazepam 2 MG TABLET PO PRN ×2 (13:36→18:19)
[2020-11-05] MEDS: HALOPERIDOL 5 MG TABLET PO PRN ×2 (13:36→18:19)
[2020-11-05 16:11] VITALS: BP 130/80
[2020-11-05] MEDS: QUEtiapine FUMARATE 300 MG TABLET PO SCH (20:17)
[2020-11-06] MEDS: LEVOTHYROXINE SODIUM 75 MCG TABLET PO SCH (07:00)
[2020-11-06] MEDS: DIVALPROEX SODIUM 500 MG DR TABLET PO SCH ×2 (09:17→17:00)
[2020-11-06] MEDS: QUEtiapine FUMARATE 100 MG TABLET PO SCH (09:17)
[2020-11-06] MEDS: HydrOXYzine HCL 25 MG TABLET PO SCH ×3 (09:17→17:00)
[2020-11-06] MEDS: LORazepam 2 MG TABLET PO PRN ×2 (09:17→14:54)
[2020-11-06] MEDS: HALOPERIDOL 5 MG TABLET PO PRN ×2 (09:18→14:54)
[2020-11-06 16:21] VITALS: BP 121/78
[2020-11-06 16:34] LABS: COVID AG,FIA SOURCE NASOPHARYNGEAL
[2020-11-06] MEDS: QUEtiapine FUMARATE 300 MG TABLET PO SCH (21:28)
[2020-11-07] MEDS: LEVOTHYROXINE SODIUM 75 MCG TABLET PO SCH ×2 (06:55→07:44)
[2020-11-07] MEDS: LORazepam 2 MG TABLET PO PRN (08:17)
[2020-11-07] MEDS: HydrOXYzine HCL 25 MG TABLET PO SCH ×2 (08:17→13:45)
[2020-11-07] MEDS: DIVALPROEX SODIUM 500 MG DR TABLET PO SCH (08:17)
[2020-11-07] MEDS: HALOPERIDOL 5 MG TABLET PO PRN (08:17)
[2020-11-07] MEDS: QUEtiapine FUMARATE 100 MG TABLET PO SCH (08:17)
[2020-11-07 08:18] VITALS: BP 108/57
[2020-11-07] MEDS ORDERED: DIVA-112 PO (15:33)
[2020-11-07] MEDS ORDERED: QUET300T2 PO (15:34)
[2020-11-07] MEDS ORDERED: HYD25 PO (15:34)
== END 2020-11-07 16:00 | disposition home or self-care (01) | DRG 750 ==
LOC: EMS 20:11 → 3EC 10-31 16:02
PROVIDERS: ADMIT Psychiatry & Neurology Psychiatry; ATTEND Psychiatry & Neurology Psychiatry
DX: F25.0 Schizoaffective disorder, bipolar type (principal); G40.909 Epilepsy, unspecified, not intractable, without status epilepticus; R45.851 Suicidal ideations; E03.9 Hypothyroidism, unspecified; F41.9 Anxiety disorder, unspecified; I10 Essential (primary) hypertension; K21.9 Gastro-esophageal reflux disease without esophagitis; K59.00 Constipation, unspecified; G47.00 Insomnia, unspecified; Z20.822 Contact with and (suspected) exposure to COVID-19
CPT/HCPCS: 80053; 80061; 80164; 81003; 84702; 85025; 96372; 99291; G0480; J1200; J1630; J2060

== ENCOUNTER 2021-11-12 08:25 | Inpatient (IN) | payer MEDICAID, OTHER ==
[~2021-11-12] VITALS: Ht 152.4 cm; Wt 88.9 kg
[~2021-11-12 08:25] MED LIST changes: -ATEN-73 PO; +DIVA-112 PO; -FLUO10CA24 PO; +HYDR-4527 PO; +LEVO75 PO; -LITH300C3 PO; -MELA5TAB3 PO; -NALT50TA PO; -OMEG-135 PO; +QUET100T PO; +QUET300T2 PO; -RISP0.5T61 PO; -VALP250C48 PO; -VALP250S23 PO
[2021-11-12] MEDS ORDERED: HALOPERIDOL LACTATE 5 MG/ML VIAL ONE (08:40)
[2021-11-12] MEDS ORDERED: DiphenhydrAMINE HCL 50 MG/ML VIAL ONE (08:40)
[2021-11-12] MEDS ORDERED: LORazepam 2 MG/ML VIAL IM ONE ×3 (08:45→19:15)
[2021-11-12] MEDS ORDERED: HALOPERIDOL LACTATE 5 MG/ML VIAL IM ONE ×3 (08:45→19:15)
[2021-11-12] MEDS ORDERED: DiphenhydrAMINE HCL 50 MG/ML VIAL IM ONE ×2 (08:45→19:15)
[2021-11-12 10:38] LABS: BASOPHILS % (AUTO) 0.4 % (0.0-2.0); EOSINOPHILS % (AUTO) 1.9 % (1.0-6.0); HEMATOCRIT 37.2 % (36-46); HEMOGLOBIN 12.6 g/dL (12.0-16.0); LYMPHOCYTES # (AUTO) 2.5 K/uL (1.0-4.8); LYMPHOCYTES % (AUTO) 45.6 % (22.0-44.0); MEAN CORPUSCULAR HEMOGLOBIN 32.3 pg (26.0-34.0); MEAN CORPUSCULAR HGB CONC 33.9 G/dL (31.0-37.0); MEAN CORPUSCULAR VOLUME 96 fL (80-100); MONOCYTES # (AUTO) 0.7 K/uL (0.1-1.0); MONOCYTES % (AUTO) 13.4 % (2.0-9.0); NEUTROPHILS # (AUTO) 2.1 K/uL (1.8-7.7); NEUTROPHILS % (AUTO) 38.7 % (40.0-70.0); PLATELET COUNT (AUTO) 135 K/uL (150-450); RED BLOOD CELL COUNT(AUTO) 3.89 MIL/uL (4.00-5.20); RED CELL DISTRIBUTION WIDTH 13.7 % (11.5-14.5)
[2021-11-12 10:48] LABS: ANION GAP 12 mmol/L (8-16); CALCIUM, TOTAL 8.9 mg/dL (8.8-10.5); CARBON DIOXIDE 21 mmol/L (22-29); CHLORIDE 106 mmol/L (98-107); CREATININE 0.87 mg/dL (0.60-1.30); GLOMERULAR FILTR. RATE CALC > 60 mL/min (>60); GLUCOSE,RANDOM 99 mg/dL (70-110); POTASSIUM 4.2 mmol/L (3.5-5.1); SODIUM SERUM 139 mmol/L (136-145); UREA NITROGEN, BLOOD 16 mg/dL (7-18)
[2021-11-12 10:52] LABS: ALANINE AMINOTRANSFERASE 14 U/L (12-78); ALBUMIN 2.6 g/dL (3.4-5.0); ALKALINE PHOSPHATASE 62 U/L (46-116); ASPARTATE AMINOTRANSFERASE 18 U/L (15-37); BILIRUBIN,TOTAL 0.2 mg/dL (0.1-1.0)
[2021-11-12 12:36] LABS: COVID AG,FIA SOURCE NASAL SWAB
[2021-11-13] MEDS: LORazepam 2 MG TABLET PO PRN ×2 (07:15→07:22)
[2021-11-13] MEDS: HALOPERIDOL 5 MG TABLET PO PRN ×2 (07:16→07:22)
[2021-11-13] MEDS ORDERED: DiphenhydrAMINE HCL 50 MG/ML VIAL IM ONE (09:45)
[2021-11-13] MEDS ORDERED: LORazepam 2 MG/ML VIAL IM ONE (09:45)
[2021-11-13] MEDS ORDERED: HALOPERIDOL LACTATE 5 MG/ML VIAL IM ONE (09:45)
[2021-11-14] MEDS: ZOLPIDEM TARTRATE 10 MG TABLET PO PRN ×2 (01:45→04:40)
[2021-11-14] MEDS: LORazepam 2 MG TABLET PO PRN ×2 (10:50→19:15)
[2021-11-14] MEDS: DiphenhydrAMINE HCL 25 MG CAPSULE PO ONE ×2 (20:15→20:22)
[2021-11-14] MEDS ORDERED: DiphenhydrAMINE HCL 50 MG/ML VIAL IM ONE (20:30)
[2021-11-15] MEDS: LORazepam 2 MG TABLET PO PRN ×2 (08:11→19:09)
[2021-11-15 15:30] VITALS: BP 124/74
[2021-11-15 22:03] VITALS: BP 138/83
[2021-11-16 05:07] VITALS: BP 130/75
[2021-11-16 08:31] VITALS: BP 119/74
[2021-11-16] MEDS: HALOPERIDOL 5 MG TABLET PO PRN (09:33)
[2021-11-16] MEDS: LORazepam 2 MG TABLET PO PRN ×2 (09:33→22:34)
[2021-11-16 16:09] VITALS: BP 120/75
[2021-11-16] MEDS: ZOLPIDEM TARTRATE 10 MG TABLET PO PRN (22:33)
[2021-11-17 06:13] VITALS: BP 122/72
[2021-11-17] MEDS: HALOPERIDOL 5 MG TABLET PO PRN ×2 (08:30→17:22)
[2021-11-17] MEDS: LORazepam 2 MG TABLET PO PRN ×2 (08:30→17:22)
[2021-11-17] MEDS ORDERED: LORazepam 2 MG/ML VIAL IM ONE (09:00)
[2021-11-17] MEDS ORDERED: DiphenhydrAMINE HCL 50 MG/ML VIAL IM ONE (09:00)
[2021-11-17] MEDS ORDERED: ChlorproMAZINE HCL 50 MG/2 ML AMP IM ONE (09:00)
[2021-11-17] MEDS: VALPROIC ACID 250 MG/5 ML SOLUTION UDCUP PO SCH ×3 (13:43→20:49)
[2021-11-17] MEDS: PROPRANOLOL HCL 10 MG TABLET PO SCH ×2 (13:43→17:17)
[2021-11-17 16:40] VITALS: BP 122/79
[2021-11-17] MEDS: CloZAPine 25 MG RAPDIS TABLET PO SCH (20:48)
[2021-11-17] MEDS: CloZAPine 100 MG RAPDIS TABLET PO SCH (20:48)
[2021-11-17 22:00] VITALS: BP 110/85
[2021-11-18] MEDS: LORazepam 2 MG TABLET PO PRN (08:27)
[2021-11-18] MEDS: HALOPERIDOL 5 MG TABLET PO PRN (08:28)
[2021-11-18] MEDS: PROPRANOLOL HCL 10 MG TABLET PO SCH ×3 (08:29→16:05)
[2021-11-18] MEDS: VALPROIC ACID 250 MG/5 ML SOLUTION UDCUP PO SCH ×4 (08:39→21:47)
[2021-11-18] MEDS: CloZAPine 100 MG RAPDIS TABLET PO SCH ×2 (08:39→21:47)
[2021-11-18] MEDS: CloZAPine 25 MG RAPDIS TABLET PO SCH ×2 (08:39→21:47)
[2021-11-18 08:43] LABS: CHOL/HDL RATIO 3.8 (3.9-5.7); FREE T4 (FREE THYROXINE) 0.99 ng/dL (0.76-1.46); THYROID STIMULATING HORMONE 3.88 uIU/mL (0.36-3.74)
[2021-11-18 08:59] LABS: HEMOGLOBIN A1C 4.9 % (3.8-5.6)
[2021-11-18 09:01] VITALS: BP 132/72
[2021-11-18] MEDS ORDERED: ZIPRASIDONE MESYLATE 20 MG/VIAL IM ONE (18:45)
[2021-11-18] MEDS ORDERED: DiphenhydrAMINE HCL 50 MG/ML VIAL IM ONE (18:45)
[2021-11-18 21:36] VITALS: BP 121/78
[2021-11-19 08:09] VITALS: BP 104/65
[2021-11-19] MEDS: VALPROIC ACID 250 MG/5 ML SOLUTION UDCUP PO SCH ×4 (08:57→20:02)
[2021-11-19] MEDS: PROPRANOLOL HCL 10 MG TABLET PO SCH ×3 (08:58→16:12)
[2021-11-19 09:50] LABS: BASOPHILS % (AUTO) 0.5 % (0.0-2.0); EOSINOPHILS % (AUTO) 2.7 % (1.0-6.0); HEMATOCRIT 35.4 % (36-46); LYMPHOCYTES # (AUTO) 2.4 K/uL (1.0-4.8); LYMPHOCYTES % (AUTO) 39.9 % (22.0-44.0); MEAN CORPUSCULAR HEMOGLOBIN 32.2 pg (26.0-34.0); MEAN CORPUSCULAR HGB CONC 33.8 G/dL (31.0-37.0); MEAN CORPUSCULAR VOLUME 95 fL (80-100); MONOCYTES # (AUTO) 0.6 K/uL (0.1-1.0); MONOCYTES % (AUTO) 10.3 % (2.0-9.0); NEUTROPHILS # (AUTO) 2.8 K/uL (1.8-7.7); NEUTROPHILS % (AUTO) 46.6 % (40.0-70.0); PLATELET COUNT (AUTO) 170 K/uL (150-450); RED BLOOD CELL COUNT(AUTO) 3.72 MIL/uL (4.00-5.20); RED CELL DISTRIBUTION WIDTH 13.8 % (11.5-14.5)
[2021-11-19] MEDS: CloZAPine 100 MG RAPDIS TABLET PO SCH ×2 (10:34→20:02)
[2021-11-19] MEDS: CloZAPine 25 MG RAPDIS TABLET PO SCH ×2 (10:34→20:02)
[2021-11-19 13:32] VITALS: BP 115/71
[2021-11-20 08:05] VITALS: BP 111/76
[2021-11-20] MEDS: OMEGA-3/DHA/EPA/FISH OIL 1,000 MG CAPSULE PO SCH (08:52)
[2021-11-20] MEDS: CloZAPine 100 MG RAPDIS TABLET PO SCH ×2 (08:52→20:15)
[2021-11-20] MEDS: PROPRANOLOL HCL 10 MG TABLET PO SCH ×3 (08:52→16:31)
[2021-11-20] MEDS: VALPROIC ACID 250 MG/5 ML SOLUTION UDCUP PO SCH ×4 (08:52→20:14)
[2021-11-20] MEDS: CloZAPine 25 MG RAPDIS TABLET PO SCH ×2 (08:53→20:15)
[2021-11-20] MEDS: LORazepam 2 MG TABLET PO PRN (12:21)
[2021-11-20] MEDS: HALOPERIDOL 5 MG TABLET PO PRN (12:21)
[2021-11-20 20:03] VITALS: BP 120/73
[2021-11-21 08:50] VITALS: BP_SYST 78
[2021-11-21] MEDS: CloZAPine 100 MG RAPDIS TABLET PO SCH ×2 (09:33→20:09)
[2021-11-21] MEDS: CloZAPine 25 MG RAPDIS TABLET PO SCH ×2 (09:33→20:09)
[2021-11-21] MEDS: VALPROIC ACID 250 MG/5 ML SOLUTION UDCUP PO SCH ×4 (09:46→20:09)
[2021-11-21] MEDS: OMEGA-3/DHA/EPA/FISH OIL 1,000 MG CAPSULE PO SCH (09:47)
[2021-11-21] MEDS: PROPRANOLOL HCL 10 MG TABLET PO SCH ×3 (09:47→16:34)
[2021-11-21] MEDS: LORazepam 2 MG TABLET PO PRN (10:12)
[2021-11-21 20:13] VITALS: BP 100/63
[2021-11-22] MEDS: CloZAPine 25 MG RAPDIS TABLET PO SCH ×2 (08:12→20:04)
[2021-11-22] MEDS: VALPROIC ACID 250 MG/5 ML SOLUTION UDCUP PO SCH ×4 (08:12→20:04)
[2021-11-22] MEDS: PROPRANOLOL HCL 10 MG TABLET PO SCH ×3 (08:13→16:09)
[2021-11-22] MEDS: CloZAPine 100 MG RAPDIS TABLET PO SCH ×2 (08:13→20:04)
[2021-11-22] MEDS: OMEGA-3/DHA/EPA/FISH OIL 1,000 MG CAPSULE PO SCH (08:13)
[2021-11-22 08:26] VITALS: BP 118/69
[2021-11-22] MEDS: LORazepam 2 MG TABLET PO PRN (09:43)
[2021-11-22 20:15] VITALS: BP 114/66
[2021-11-23] MEDS: HALOPERIDOL 5 MG TABLET PO PRN (08:47)
[2021-11-23] MEDS: VALPROIC ACID 250 MG/5 ML SOLUTION UDCUP PO SCH ×4 (08:47→20:12)
[2021-11-23] MEDS: CloZAPine 25 MG RAPDIS TABLET PO SCH ×2 (08:48→20:12)
[2021-11-23] MEDS: OMEGA-3/DHA/EPA/FISH OIL 1,000 MG CAPSULE PO SCH (08:48)
[2021-11-23] MEDS: PROPRANOLOL HCL 10 MG TABLET PO SCH ×3 (08:48→16:25)
[2021-11-23] MEDS: CloZAPine 100 MG RAPDIS TABLET PO SCH ×2 (08:48→20:12)
[2021-11-23] MEDS: LORazepam 2 MG TABLET PO PRN (08:48)
[2021-11-23] MEDS ORDERED: DiphenhydrAMINE HCL 50 MG/ML VIAL ONE (09:12)
[2021-11-23] MEDS ORDERED: ChlorproMAZINE HCL 50 MG/2 ML AMP ONE (09:12)
[2021-11-23] MEDS ORDERED: LORazepam 2 MG/ML VIAL ONE (09:12)
[2021-11-23] MEDS: ATROPINE SULFATE 1% 5 ML OPHTHALMIC SOLUTION SL PRN (09:37)
[2021-11-23] MEDS ORDERED: ChlorproMAZINE HCL 50 MG/2 ML AMP IM ONE (09:45)
[2021-11-23] MEDS ORDERED: LORazepam 2 MG/ML VIAL IM ONE (09:45)
[2021-11-23] MEDS ORDERED: DiphenhydrAMINE HCL 50 MG/ML VIAL IM ONE (09:45)
[2021-11-23 13:17] VITALS: BP 126/75
[2021-11-23 20:14] VITALS: BP 116/78
[2021-11-24 09:30] VITALS: BP 112/74
[2021-11-24] MEDS: OMEGA-3/DHA/EPA/FISH OIL 1,000 MG CAPSULE PO SCH (09:35)
[2021-11-24] MEDS: PROPRANOLOL HCL 10 MG TABLET PO SCH ×3 (09:35→16:13)
[2021-11-24] MEDS: VALPROIC ACID 250 MG/5 ML SOLUTION UDCUP PO SCH ×4 (09:35→20:05)
[2021-11-24] MEDS: CloZAPine 25 MG RAPDIS TABLET PO SCH ×2 (09:36→20:09)
[2021-11-24] MEDS: CloZAPine 100 MG RAPDIS TABLET PO SCH ×2 (09:36→20:09)
[2021-11-24] MEDS ORDERED: ACETAMINOPHEN 325 MG TABLET PO PRN (09:45)
[2021-11-24] MEDS: LORazepam 2 MG TABLET PO PRN ×2 (10:15→14:16)
[2021-11-24] MEDS: ATROPINE SULFATE 1% 5 ML OPHTHALMIC SOLUTION SL PRN (14:15)
[2021-11-24 20:05] VITALS: BP 124/70
[2021-11-25 08:00] VITALS: BP 127/78
[2021-11-25] MEDS: VALPROIC ACID 250 MG/5 ML SOLUTION UDCUP PO SCH ×2 (09:47→13:23)
[2021-11-25] MEDS: PROPRANOLOL HCL 10 MG TABLET PO SCH ×2 (09:47→13:22)
[2021-11-25] MEDS: CloZAPine 25 MG RAPDIS TABLET PO SCH (09:47)
[2021-11-25] MEDS: CloZAPine 100 MG RAPDIS TABLET PO SCH (09:47)
[2021-11-25] MEDS: OMEGA-3/DHA/EPA/FISH OIL 1,000 MG CAPSULE PO SCH (09:47)
[2021-11-25] MEDS: ATROPINE SULFATE 1% 5 ML OPHTHALMIC SOLUTION SL PRN (09:50)
[2021-11-25] MEDS: LORazepam 2 MG TABLET PO PRN (10:08)
[2021-11-25] MEDS ORDERED: VALP250C48 PO ×2 (13:36)
[2021-11-25] MEDS ORDERED: CLOZ100T37 PO ×4 (13:37→14:43)
[2021-11-25] MEDS ORDERED: PROP10TA73 PO (13:37)
[2021-11-25] MEDS ORDERED: CLOZ25TA PO ×2 (13:37→14:43)
[2021-11-25] MEDS ORDERED: OMEG-108 PO (14:43)
[2021-11-25] MEDS ORDERED: PROP10TA72 PO (14:43)
[2021-11-25] MEDS ORDERED: VALP250S23 PO ×2 (14:43)
== END 2021-11-25 16:30 | disposition home or self-care (01) | DRG 750 ==
LOC: EMS 08:25 → B3A 11:15
PROVIDERS: ADMIT Psychiatry & Neurology Psychiatry; ATTEND Psychiatry & Neurology Psychiatry
DX: F25.0 Schizoaffective disorder, bipolar type (principal); F79 Unspecified intellectual disabilities; E03.9 Hypothyroidism, unspecified; F84.0 Autistic disorder; Z20.822 Contact with and (suspected) exposure to COVID-19; G40.909 Epilepsy, unspecified, not intractable, without status epilepticus; I10 Essential (primary) hypertension; K21.9 Gastro-esophageal reflux disease without esophagitis; Z78.1 Physical restraint status; Z79.899 Other long term (current) drug therapy; Z91.14 Patient's other noncompliance with medication regimen
CPT/HCPCS: 80053; 80061; 80164; 83036; 84439; 84443; 84703; 85025; 87081; 99285; G0480; J1200; J1630; J2060; J3230

== ENCOUNTER 2022-01-20 17:47 | Inpatient (IN) | payer MEDICAID, OTHER ==
[~2022-01-20] VITALS: Ht 152.4 cm; Wt 83.9 kg
[~2022-01-20 17:47] MED LIST changes: +CLOZ100T37 PO; +CLOZ25TA PO; -DIVA-112 PO; -HYDR-4527 PO; -LEVO75 PO; +OMEG-135 PO; +PROP10TA72 PO; +PROP10TA73 PO; -QUET100T PO; -QUET300T2 PO; +VALP250C48 PO; +VALP250S23 PO
[2022-01-20] MEDS ORDERED: DiphenhydrAMINE HCL 50 MG/ML VIAL IM ONE (18:30)
[2022-01-20] MEDS ORDERED: HALOPERIDOL LACTATE 5 MG/ML VIAL IM ONE (18:30)
[2022-01-20] MEDS ORDERED: LORazepam 2 MG/ML VIAL IM ONE (18:30)
[2022-01-20] MEDS ORDERED: HALO5TAB23 PO (18:40)
[2022-01-20] MEDS ORDERED: CLOZ100T37 PO ×2 (18:40)
[2022-01-20] MEDS ORDERED: QUET100T PO (18:40)
[2022-01-20] MEDS ORDERED: ETHI1TAB20 PO (18:40)
[2022-01-20] MEDS ORDERED: LEVO75 PO (18:40)
[2022-01-20] MEDS ORDERED: DIVA-112 PO ×2 (18:40)
[2022-01-20] MEDS ORDERED: FAMO20 PO (18:40)
[2022-01-20 19:30] LABS: BASOPHILS % (AUTO) 0.3 % (0.0-2.0); EOSINOPHILS % (AUTO) 1.2 % (1.0-6.0); HEMATOCRIT 38.4 % (36-46); HEMOGLOBIN 12.6 g/dL (12.0-16.0); LYMPHOCYTES # (AUTO) 3.1 K/uL (1.0-4.8); LYMPHOCYTES % (AUTO) 61.5 % (22.0-44.0); MEAN CORPUSCULAR HGB CONC 32.8 G/dL (31.0-37.0); MEAN CORPUSCULAR VOLUME 98 fL (80-100); MONOCYTES # (AUTO) 0.5 K/uL (0.1-1.0); MONOCYTES % (AUTO) 9.6 % (2.0-9.0); NEUTROPHILS # (AUTO) 1.4 K/uL (1.8-7.7); NEUTROPHILS % (AUTO) 27.4 % (40.0-70.0); PLATELET COUNT (AUTO) 128 K/uL (150-450); RED BLOOD CELL COUNT(AUTO) 3.93 MIL/uL (4.00-5.20); RED CELL DISTRIBUTION WIDTH 14.4 % (11.5-14.5)
[2022-01-20 19:56] LABS: ANION GAP 14 mmol/L (8-16); CALCIUM, TOTAL 8.8 mg/dL (8.8-10.5); CARBON DIOXIDE 20 mmol/L (22-29); CHLORIDE 107 mmol/L (98-107); CREATININE 0.95 mg/dL (0.60-1.30); GLUCOSE,RANDOM 157 mg/dL (70-110); POTASSIUM 3.5 mmol/L (3.5-5.1); SODIUM SERUM 141 mmol/L (136-145); UREA NITROGEN, BLOOD 13 mg/dL (7-18)
[2022-01-20 19:58] LABS: GLOMERULAR FILTR. RATE CALC > 60 mL/min (>60)
[2022-01-20 20:02] LABS: ALANINE AMINOTRANSFERASE 16 U/L (12-78); ALBUMIN 3.2 g/dL (3.4-5.0); ALKALINE PHOSPHATASE 91 U/L (46-116); ASPARTATE AMINOTRANSFERASE 16 U/L (15-37); BILIRUBIN,TOTAL 0.2 mg/dL (0.1-1.0); TOTAL PROTEIN, SERUM 6.5 g/dL (6.4-8.2); VALPROIC ACID 85 mcg/mL (50-100)
[2022-01-20 20:31] LABS: COVID AG,FIA SOURCE NASOPHARYNGEAL
[2022-01-20 22:08] LABS: AMPHET/METH SCREEN,URINE NEGATIVE (NEGATIVE); BARBITURATE SCREEN, URINE NEGATIVE (NEGATIVE); BENZODIAZEPINES SCREEN,URINE NEGATIVE (NEGATIVE); CANNABINOID SCREEN,URINE NEGATIVE (NEGATIVE); COCAINE SCREEN,URINE NEGATIVE (NEGATIVE); METHADONE SCREEN, URINE NEGATIVE (NEGATIVE); OPIATE SCREEN,URINE NEGATIVE (NEGATIVE)
[2022-01-20 22:09] LABS: PHENCYCLIDINE SCREEN,URINE NEGATIVE (NEGATIVE)
[2022-01-21 02:52] LABS: APPEARANCE,URINE HAZY (CLEAR); BILIRUBIN,URINE NEGATIVE (NEGATIVE); GLUCOSE, URINE (UA) NEGATIVE (NEGATIVE); LEUKOCYTE ESTERASE ,URINE NEGATIVE (NEGATIVE); NITRATE,URINE NEGATIVE (NEGATIVE); OCCULT BLOOD,URINE LARGE (NEGATIVE); PH,URINE 6.5 (5.0-8.0); PROTEIN,URINE 30-70 mg/dL (NEGATIVE); SPECIFIC GRAVITIY, URINE 1.041 (1.003-1.030)
[2022-01-21 03:03] LABS: BACTERIA,URINE None Seen /HPF (None Seen); CALCIUM OXALATE CRYSTALS,UR Few /LPF (None Seen); RBC,URINE 26-50 /HPF (0-2); WBC,URINE 0-2 /HPF (0-5)
[2022-01-21 03:04] LABS: SQUAMOUS EPITHELIAL CELL,UR Moderate /LPF (None Seen)
[2022-01-21] MEDS: LORazepam 2 MG TABLET PO PRN ×2 (07:51→14:57)
[2022-01-21] MEDS: HALOPERIDOL 5 MG TABLET PO PRN ×2 (07:52→14:57)
[2022-01-22] MEDS: HALOPERIDOL 5 MG TABLET PO PRN ×3 (02:05→15:12)
[2022-01-22] MEDS: LORazepam 2 MG TABLET PO PRN ×3 (02:05→15:12)
[2022-01-22] MEDS ORDERED: ALBUTEROL SULFATE HFA 90 MCG/PUFF 8 GM INHALER IH PRN (12:45)
[2022-01-22] MEDS ORDERED: MAGNESIUM HYDROXIDE SUSPENSION 30 ML UDCUP PO PRN (12:45)
[2022-01-22] MEDS ORDERED: PETROLATUM,WHITE 28 GM JELLY TP PRN (12:45)
[2022-01-22] MEDS ORDERED: MAG HYDROX/AL HYDROX/SIMETH ES 30 ML SUSPENSION UDCUP PO PRN (12:45)
[2022-01-22] MEDS ORDERED: GuaiFENesin/D-METHORPHAN [SUGAR-FREE] 200-20MG/10 ML SYRUP UDCUP PO PRN (12:45)
[2022-01-22] MEDS ORDERED: DOCUSATE SODIUM 100 MG CAPSULE PO PRN (12:45)
[2022-01-22] MEDS ORDERED: ACETAMINOPHEN 325 MG TABLET PO PRN (12:45)
[2022-01-22] MEDS ORDERED: CloNIDine HCL 0.1 MG TABLET PO PRN (12:45)
[2022-01-22] MEDS ORDERED: ONDANSETRON HCL 4 MG TABLET PO PRN (12:45)
[2022-01-22] MEDS ORDERED: IBUPROFEN 400 MG TABLET PO PRN (12:45)
[2022-01-22] MEDS ORDERED: NICOTINE 14 MG/24 HOUR PATCH TD PRN (12:45)
[2022-01-22] MEDS: FAMOTIDINE 20 MG TABLET PO SCH (21:00)
[2022-01-23] MEDS: LEVOTHYROXINE SODIUM 75 MCG TABLET PO SCH (06:34)
[2022-01-23] MEDS: LORazepam 2 MG TABLET PO PRN ×2 (07:35→18:49)
[2022-01-23] MEDS: HALOPERIDOL 5 MG TABLET PO PRN ×2 (07:35→18:49)
[2022-01-23] MEDS: FAMOTIDINE 20 MG TABLET PO SCH (20:13)
[2022-01-24 04:15] VITALS: BP 114/74
[2022-01-24] MEDS: LEVOTHYROXINE SODIUM 75 MCG TABLET PO SCH (06:30)
[2022-01-24 07:20] VITALS: BP 114/74
[2022-01-24] MEDS: LORazepam 2 MG TABLET PO PRN ×2 (08:16→19:03)
[2022-01-24 08:21] VITALS: BP 130/81
[2022-01-24] MEDS ORDERED: LORazepam 2 MG/ML VIAL IM ONE (08:45)
[2022-01-24] MEDS ORDERED: DiphenhydrAMINE HCL 50 MG/ML VIAL IM ONE (08:45)
[2022-01-24] MEDS ORDERED: HALOPERIDOL LACTATE 5 MG/ML VIAL IM ONE (08:45)
[2022-01-24] MEDS: DIVALPROEX SODIUM 500 MG DR TABLET PO SCH ×2 (11:01→20:03)
[2022-01-24 12:50] VITALS: BP 127/83
[2022-01-24] MEDS: CloZAPine 100 MG RAPDIS TABLET PO SCH ×2 (13:00→20:02)
[2022-01-24] MEDS: HALOPERIDOL 5 MG TABLET PO PRN (19:03)
[2022-01-24] MEDS: FAMOTIDINE 20 MG TABLET PO SCH (21:00)
[2022-01-24 23:40] VITALS: BP 128/80
[2022-01-25] MEDS: LEVOTHYROXINE SODIUM 75 MCG TABLET PO SCH ×3 (06:30→07:28)
[2022-01-25] MEDS: DIVALPROEX SODIUM 500 MG DR TABLET PO SCH ×2 (10:00→20:05)
[2022-01-25] MEDS: CloZAPine 100 MG RAPDIS TABLET PO SCH ×2 (10:00→20:05)
[2022-01-25] MEDS: LORazepam 2 MG TABLET PO PRN ×2 (10:00→18:34)
[2022-01-25] MEDS: ATROPINE SULFATE 1% 5 ML OPHTHALMIC SOLUTION SL PRN (10:05)
[2022-01-25 12:39] VITALS: BP 114/69
[2022-01-25] MEDS: HALOPERIDOL 5 MG TABLET PO PRN (18:34)
[2022-01-25] MEDS: FAMOTIDINE 20 MG TABLET PO SCH (20:05)
[2022-01-26] MEDS: LEVOTHYROXINE SODIUM 75 MCG TABLET PO SCH (06:51)
[2022-01-26] MEDS: DIVALPROEX SODIUM 500 MG DR TABLET PO SCH ×2 (09:43→21:10)
[2022-01-26] MEDS: CloZAPine 100 MG RAPDIS TABLET PO SCH ×2 (09:43→21:13)
[2022-01-26] MEDS: LORazepam 2 MG TABLET PO PRN (09:43)
[2022-01-26] MEDS: ATROPINE SULFATE 1% 5 ML OPHTHALMIC SOLUTION SL PRN (09:51)
[2022-01-26] MEDS: FAMOTIDINE 20 MG TABLET PO SCH (21:10)
[2022-01-27] MEDS: LEVOTHYROXINE SODIUM 75 MCG TABLET PO SCH (07:05)
[2022-01-27] MEDS: CloZAPine 100 MG RAPDIS TABLET PO SCH ×2 (10:23→20:09)
[2022-01-27] MEDS: DIVALPROEX SODIUM 500 MG DR TABLET PO SCH ×2 (10:23→20:09)
[2022-01-27] MEDS: ATROPINE SULFATE 1% 5 ML OPHTHALMIC SOLUTION SL PRN (10:24)
[2022-01-27] MEDS: LORazepam 2 MG TABLET PO PRN (10:24)
[2022-01-27] MEDS: FAMOTIDINE 20 MG TABLET PO SCH (20:09)
[2022-01-28] MEDS: LEVOTHYROXINE SODIUM 75 MCG TABLET PO SCH (06:33)
[2022-01-28 07:44] LABS: HEMOGLOBIN A1C 5.1 % (3.8-5.6)
[2022-01-28 08:08] LABS: FREE T4 (FREE THYROXINE) 1.1 ng/dL (0.76-1.46); THYROID STIMULATING HORMONE 0.65 uIU/mL (0.36-3.74)
[2022-01-28] MEDS: DIVALPROEX SODIUM 500 MG DR TABLET PO SCH ×2 (08:46→20:55)
[2022-01-28] MEDS: CloZAPine 100 MG RAPDIS TABLET PO SCH ×2 (08:47→20:54)
[2022-01-28] MEDS: FAMOTIDINE 20 MG TABLET PO SCH (20:54)
[2022-01-29] MEDS: LEVOTHYROXINE SODIUM 75 MCG TABLET PO SCH (06:34)
[2022-01-29] MEDS: CloZAPine 100 MG RAPDIS TABLET PO SCH ×2 (08:03→21:07)
[2022-01-29] MEDS: LORazepam 2 MG TABLET PO PRN ×2 (08:04→17:37)
[2022-01-29] MEDS: DIVALPROEX SODIUM 500 MG DR TABLET PO SCH ×2 (08:05→21:06)
[2022-01-29 08:33] VITALS: BP 118/82
[2022-01-29] MEDS: FAMOTIDINE 20 MG TABLET PO SCH (21:07)
[2022-01-30] MEDS: LEVOTHYROXINE SODIUM 75 MCG TABLET PO SCH (06:30)
[2022-01-30 08:00] VITALS: BP 124/68
[2022-01-30] MEDS: LORazepam 2 MG TABLET PO PRN ×2 (08:46→13:29)
[2022-01-30] MEDS: CloZAPine 100 MG RAPDIS TABLET PO SCH ×2 (08:46→20:15)
[2022-01-30] MEDS: DIVALPROEX SODIUM 500 MG DR TABLET PO SCH ×2 (08:46→20:15)
[2022-01-30] MEDS: ATROPINE SULFATE 1% 5 ML OPHTHALMIC SOLUTION SL PRN (13:28)
[2022-01-30] MEDS: FAMOTIDINE 20 MG TABLET PO SCH (20:15)
[2022-01-30 22:57] VITALS: BP 120/58
[2022-01-31] MEDS: LEVOTHYROXINE SODIUM 75 MCG TABLET PO SCH (06:55)
[2022-01-31 08:07] VITALS: BP 123/79
[2022-01-31] MEDS: CloZAPine 100 MG RAPDIS TABLET PO SCH ×2 (10:05→20:06)
[2022-01-31] MEDS: DIVALPROEX SODIUM 500 MG DR TABLET PO SCH ×2 (10:05→20:06)
[2022-01-31] MEDS: LORazepam 2 MG TABLET PO PRN (10:36)
[2022-01-31 20:00] VITALS: BP 143/85
[2022-01-31] MEDS: FAMOTIDINE 20 MG TABLET PO SCH (20:07)
[2022-02-01] MEDS: LEVOTHYROXINE SODIUM 75 MCG TABLET PO SCH (06:41)
[2022-02-01] MEDS: DIVALPROEX SODIUM 500 MG DR TABLET PO SCH ×2 (08:43→20:27)
[2022-02-01] MEDS: CloZAPine 100 MG RAPDIS TABLET PO SCH ×2 (08:43→20:27)
[2022-02-01] MEDS: FAMOTIDINE 20 MG TABLET PO SCH (20:27)
[2022-02-01 21:36] VITALS: BP 147/90
[2022-02-02] MEDS: LEVOTHYROXINE SODIUM 75 MCG TABLET PO SCH (06:49)
[2022-02-02] MEDS: LORazepam 2 MG TABLET PO PRN ×2 (08:45→21:11)
[2022-02-02] MEDS: CloZAPine 100 MG RAPDIS TABLET PO SCH ×2 (08:45→20:13)
[2022-02-02] MEDS: DIVALPROEX SODIUM 500 MG DR TABLET PO SCH ×2 (08:45→20:13)
[2022-02-02] MEDS: FAMOTIDINE 20 MG TABLET PO SCH (20:13)
[2022-02-02 20:15] VITALS: BP 125/65
[2022-02-02] MEDS: ZOLPIDEM TARTRATE 10 MG TABLET PO PRN (21:11)
[2022-02-03] MEDS: LEVOTHYROXINE SODIUM 75 MCG TABLET PO SCH (06:40)
[2022-02-03] MEDS: CloZAPine 100 MG RAPDIS TABLET PO SCH ×2 (09:59→20:32)
[2022-02-03] MEDS: DIVALPROEX SODIUM 500 MG DR TABLET PO SCH ×2 (09:59→20:29)
[2022-02-03 10:24] VITALS: BP 132/73
[2022-02-03] MEDS: ATROPINE SULFATE 1% 5 ML OPHTHALMIC SOLUTION SL PRN (10:24)
[2022-02-03] MEDS: LORazepam 2 MG TABLET PO PRN ×2 (10:24→20:33)
[2022-02-03 16:26] LABS: GLUCOMETER DEV NAME(LOC) POC.BV
[2022-02-03 20:06] VITALS: BP 144/87
[2022-02-03] MEDS: FAMOTIDINE 20 MG TABLET PO SCH (20:30)
[2022-02-03] MEDS: ZOLPIDEM TARTRATE 10 MG TABLET PO PRN (20:32)
[2022-02-04] MEDS: LEVOTHYROXINE SODIUM 75 MCG TABLET PO SCH (06:51)
[2022-02-04 08:08] VITALS: BP 126/82
[2022-02-04] MEDS: CloZAPine 100 MG RAPDIS TABLET PO SCH ×2 (08:24→20:46)
[2022-02-04] MEDS: DIVALPROEX SODIUM 500 MG DR TABLET PO SCH ×2 (08:26→20:54)
[2022-02-04 20:15] VITALS: BP 113/73
[2022-02-04] MEDS: FAMOTIDINE 20 MG TABLET PO SCH (20:45)
[2022-02-05] MEDS: LEVOTHYROXINE SODIUM 75 MCG TABLET PO SCH (06:27)
[2022-02-05] MEDS: AMOX TR/POT CLAV 500 MG/125 MG TABLET PO SCH ×3 (08:05→16:10)
[2022-02-05] MEDS: DIVALPROEX SODIUM 500 MG DR TABLET PO SCH ×2 (08:05→20:13)
[2022-02-05] MEDS: CloZAPine 100 MG RAPDIS TABLET PO SCH ×2 (08:07→20:14)
[2022-02-05] MEDS: ATROPINE SULFATE 1% 5 ML OPHTHALMIC SOLUTION SL SCH ×3 (08:23→16:10)
[2022-02-05 10:00] VITALS: BP 117/83
[2022-02-05] MEDS: FAMOTIDINE 20 MG TABLET PO SCH (20:13)
[2022-02-05 20:35] VITALS: BP 133/83
[2022-02-06] MEDS: LEVOTHYROXINE SODIUM 75 MCG TABLET PO SCH (06:26)
[2022-02-06 07:15] LABS: BASOPHILS % (AUTO) 0.2 % (0.0-2.0); EOSINOPHILS % (AUTO) 1.1 % (1.0-6.0); HEMATOCRIT 40.6 % (36-46); HEMOGLOBIN 13.4 g/dL (12.0-16.0); LYMPHOCYTES # (AUTO) 2.8 K/uL (1.0-4.8); LYMPHOCYTES % (AUTO) 40.2 % (22.0-44.0); MEAN CORPUSCULAR VOLUME 97 fL (80-100); MONOCYTES # (AUTO) 0.7 K/uL (0.1-1.0); MONOCYTES % (AUTO) 9.4 % (2.0-9.0); NEUTROPHILS # (AUTO) 3.5 K/uL (1.8-7.7); NEUTROPHILS % (AUTO) 49.1 % (40.0-70.0); PLATELET COUNT (AUTO) 165 K/uL (150-450); RED CELL DISTRIBUTION WIDTH 14.3 % (11.5-14.5)
[2022-02-06 07:37] LABS: ANION GAP 10 mmol/L (8-16); CALCIUM, TOTAL 9.3 mg/dL (8.8-10.5); CARBON DIOXIDE 23 mmol/L (22-29); CHLORIDE 106 mmol/L (98-107); CREATININE 0.86 mg/dL (0.60-1.30); GLOMERULAR FILTR. RATE CALC > 60 mL/min (>60); GLUCOSE,RANDOM 112 mg/dL (70-110); SODIUM SERUM 139 mmol/L (136-145); THYROID STIMULATING HORMONE 8.99 uIU/mL (0.36-3.74); UREA NITROGEN, BLOOD 15 mg/dL (7-18)
[2022-02-06] MEDS: DIVALPROEX SODIUM 500 MG DR TABLET PO SCH ×2 (08:26→20:06)
[2022-02-06] MEDS: AMOX TR/POT CLAV 500 MG/125 MG TABLET PO SCH ×3 (08:26→16:05)
[2022-02-06] MEDS: CloZAPine 100 MG RAPDIS TABLET PO SCH ×2 (08:26→20:06)
[2022-02-06] MEDS: LORazepam 2 MG TABLET PO PRN (08:26)
[2022-02-06] MEDS: ATROPINE SULFATE 1% 5 ML OPHTHALMIC SOLUTION SL SCH ×3 (08:28→18:06)
[2022-02-06 20:05] VITALS: BP 112/75
[2022-02-06] MEDS: FAMOTIDINE 20 MG TABLET PO SCH (20:06)
[2022-02-06 22:53] VITALS: BP 110/78
[2022-02-07] MEDS: ZOLPIDEM TARTRATE 10 MG TABLET PO PRN (02:11)
[2022-02-07] MEDS: LORazepam 2 MG TABLET PO PRN (02:11)
[2022-02-07] MEDS: LEVOTHYROXINE SODIUM 75 MCG TABLET PO SCH (06:48)
[2022-02-07] MEDS: CloZAPine 100 MG RAPDIS TABLET PO SCH (08:27)
[2022-02-07] MEDS: ATROPINE SULFATE 1% 5 ML OPHTHALMIC SOLUTION SL SCH ×3 (08:27→16:07)
[2022-02-07] MEDS: AMOX TR/POT CLAV 500 MG/125 MG TABLET PO SCH ×3 (08:28→16:07)
[2022-02-07] MEDS: DIVALPROEX SODIUM 500 MG DR TABLET PO SCH (08:28)
[2022-02-07] MEDS: LOPERAMIDE HCL 2 MG CAPSULE PO PRN ×2 (08:28→12:11)
[2022-02-07] MEDS ORDERED: FAMO20 PO (09:10)
[2022-02-07] MEDS ORDERED: CLOZ100T37 PO ×2 (09:10)
[2022-02-07] MEDS ORDERED: LEVO75 PO (09:10)
[2022-02-07] MEDS ORDERED: DIVA-112 PO (09:10)
== END 2022-02-07 16:54 | disposition home or self-care (01) | DRG 750 ==
LOC: EMS 17:47 → B3A 01-23 03:01 → EMS 01-24 03:45 → B3A 01-24 06:31
PROVIDERS: ADMIT Psychiatry & Neurology Psychiatry; ATTEND Psychiatry & Neurology Psychiatry
DX: F25.0 Schizoaffective disorder, bipolar type (principal); F79 Unspecified intellectual disabilities; E03.9 Hypothyroidism, unspecified; Z20.822 Contact with and (suspected) exposure to COVID-19; F84.0 Autistic disorder; G40.909 Epilepsy, unspecified, not intractable, without status epilepticus; I10 Essential (primary) hypertension; K21.9 Gastro-esophageal reflux disease without esophagitis; R73.9 Hyperglycemia, unspecified; Z79.899 Other long term (current) drug therapy
CPT/HCPCS: 70450; 71046; 80048; 80053; 80061; 80164; 81001; 83036; 84439; 84443; 85025; 99291; G0480; J1200; J1630; J2060; 36415-L1; 36415-TC; U0003

== ENCOUNTER 2022-04-12 15:26 | Emergency (ER) | payer MEDICAID, OTHER ==
[~2022-04-12] VITALS: Ht 154.9 cm; Wt 81.8 kg
[~2022-04-12 15:26] MED LIST changes: -CLOZ25TA PO; +DIVA-112 PO; +ETHI1TAB20 PO; +FAMO20 PO; +LEVO75 PO; -OMEG-135 PO; -PROP10TA72 PO; -PROP10TA73 PO; -VALP250C48 PO; -VALP250S23 PO
[2022-04-12 16:22] VITALS: BP 136/98
[2022-04-12 17:39] LABS: BASOPHILS % (AUTO) 0.3 % (0.0-2.0); EOSINOPHILS % (AUTO) 1.2 % (1.0-6.0); HEMATOCRIT 38.5 % (36-46); LYMPHOCYTES # (AUTO) 2.3 K/uL (1.0-4.8); LYMPHOCYTES % (AUTO) 40.9 % (22.0-44.0); MEAN CORPUSCULAR HEMOGLOBIN 32.4 pg (26.0-34.0); MEAN CORPUSCULAR HGB CONC 33.7 G/dL (31.0-37.0); MEAN CORPUSCULAR VOLUME 96 fL (80-100); MONOCYTES # (AUTO) 0.7 K/uL (0.1-1.0); MONOCYTES % (AUTO) 12.5 % (2.0-9.0); NEUTROPHILS # (AUTO) 2.5 K/uL (1.8-7.7); NEUTROPHILS % (AUTO) 45.1 % (40.0-70.0); PLATELET COUNT (AUTO) 116 K/uL (150-450); RED BLOOD CELL COUNT(AUTO) 4.01 MIL/uL (4.00-5.20); RED CELL DISTRIBUTION WIDTH 14.1 % (11.5-14.5)
[2022-04-12 17:55] LABS: ANION GAP 8 mmol/L (8-16); CALCIUM, TOTAL 9.5 mg/dL (8.8-10.5); CARBON DIOXIDE 26 mmol/L (22-29); CHLORIDE 105 mmol/L (98-107); CREATININE 0.81 mg/dL (0.60-1.30); GLUCOSE,RANDOM 98 mg/dL (70-110); POTASSIUM 4.2 mmol/L (3.5-5.1); SODIUM SERUM 139 mmol/L (136-145); UREA NITROGEN, BLOOD 12 mg/dL (7-18)
[2022-04-12 17:56] LABS: GLOMERULAR FILTR. RATE CALC > 60 mL/min (>60)
[2022-04-12 18:05] LABS: ALANINE AMINOTRANSFERASE 17 U/L (12-78); ALBUMIN 3.3 g/dL (3.4-5.0); ALKALINE PHOSPHATASE 84 U/L (46-116); ASPARTATE AMINOTRANSFERASE 13 U/L (15-37); BILIRUBIN,TOTAL 0.3 mg/dL (0.1-1.0); TOTAL PROTEIN, SERUM 6.9 g/dL (6.4-8.2)
[2022-04-12 19:04] LABS: COVID AG,FIA SOURCE NASAL SWAB
== END 2022-04-12 20:00 | disposition home or self-care (01) ==
LOC: EMS 17:15
DX: F98.9 Unspecified behavioral and emotional disorders with onset usually occurring in childhood and adolescence (principal); R62.50 Unspecified lack of expected normal physiological development in childhood; F25.0 Schizoaffective disorder, bipolar type; R45.6 Violent behavior; F84.0 Autistic disorder; Z98.51 Tubal ligation status; Z20.822 Contact with and (suspected) exposure to COVID-19
CPT/HCPCS: 99285; 87426; 80053; 85025; 36415; G0480

== ENCOUNTER 2022-05-23 18:00 | Inpatient (IN) | payer MEDICAID, OTHER ==
[~2022-05-23] VITALS: Ht 154.9 cm; Wt 79.9 kg
[2022-05-24 00:13] LABS: BASOPHILS % (AUTO) 0.3 % (0.0-2.0); EOSINOPHILS % (AUTO) 1.7 % (1.0-6.0); HEMATOCRIT 38.2 % (36-46); HEMOGLOBIN 12.8 g/dL (12.0-16.0); LYMPHOCYTES % (AUTO) 42.9 % (22.0-44.0); MEAN CORPUSCULAR HEMOGLOBIN 32.4 pg (26.0-34.0); MEAN CORPUSCULAR HGB CONC 33.5 G/dL (31.0-37.0); MEAN CORPUSCULAR VOLUME 97 fL (80-100); MONOCYTES % (AUTO) 13.7 % (2.0-9.0); NEUTROPHILS # (AUTO) 2.9 K/uL (1.8-7.7); NEUTROPHILS % (AUTO) 41.4 % (40.0-70.0); PLATELET COUNT (AUTO) 140 K/uL (150-450); RED BLOOD CELL COUNT(AUTO) 3.95 MIL/uL (4.00-5.20); RED CELL DISTRIBUTION WIDTH 14.1 % (11.5-14.5)
[2022-05-24 00:23] LABS: ANION GAP 7 mmol/L (8-16); CARBON DIOXIDE 27 mmol/L (22-29); CHLORIDE 103 mmol/L (98-107); CREATININE 0.74 mg/dL (0.60-1.30); GLUCOSE,RANDOM 101 mg/dL (70-110); POTASSIUM 4.1 mmol/L (3.5-5.1); SODIUM SERUM 137 mmol/L (136-145); UREA NITROGEN, BLOOD 14 mg/dL (7-18)
[2022-05-24 00:28] LABS: ALANINE AMINOTRANSFERASE 21 U/L (12-78); ALBUMIN 3.5 g/dL (3.4-5.0); ALKALINE PHOSPHATASE 88 U/L (46-116); ASPARTATE AMINOTRANSFERASE 19 U/L (15-37); BILIRUBIN,TOTAL 0.3 mg/dL (0.1-1.0); TOTAL PROTEIN, SERUM 7.2 g/dL (6.4-8.2)
[2022-05-24 00:32] LABS: GLOMERULAR FILTR. RATE CALC > 60 mL/min (>60)
[2022-05-24 00:44] LABS: VALPROIC ACID 58 mcg/mL (50-100)
[2022-05-24 03:46] LABS: COVID AG,FIA SOURCE NASOPHARYNGEAL
[2022-05-24] MEDS ORDERED: LORazepam 1 MG TABLET PO ONE (04:00)
[2022-05-24] MEDS ORDERED: HALOPERIDOL 5 MG TABLET PO ONE (04:00)
[2022-05-24] MEDS ORDERED: PETROLATUM,WHITE 28 GM JELLY TP PRN (06:00)
[2022-05-24] MEDS ORDERED: BENZOCAINE/MENTHOL LOZENGE PO PRN (06:00)
[2022-05-24] MEDS ORDERED: OMEPRAZOLE 20 MG CAPSULE PO PRN (06:00)
[2022-05-24] MEDS ORDERED: LOPERAMIDE HCL 2 MG CAPSULE PO PRN (06:00)
[2022-05-24] MEDS ORDERED: CloNIDine HCL 0.1 MG TABLET PO PRN (06:00)
[2022-05-24] MEDS ORDERED: ONDANSETRON HCL 4 MG TABLET PO PRN (06:00)
[2022-05-24] MEDS ORDERED: BACITRACIN 28 GM OINTMENT TP PRN (06:00)
[2022-05-24] MEDS ORDERED: ALBUTEROL SULFATE HFA 90 MCG/PUFF 8 GM INHALER IH PRN (06:00)
[2022-05-24] MEDS ORDERED: IBUPROFEN 600 MG TABLET PO PRN (06:00)
[2022-05-24] MEDS ORDERED: ACETAMINOPHEN 325 MG TABLET PO PRN (06:00)
[2022-05-24] MEDS ORDERED: MAGNESIUM HYDROXIDE SUSPENSION 30 ML UDCUP PO PRN (06:00)
[2022-05-24] MEDS ORDERED: DOCUSATE SODIUM 100 MG CAPSULE PO PRN (06:00)
[2022-05-24] MEDS ORDERED: MAG HYDROX/AL HYDROX/SIMETH ES 30 ML SUSPENSION UDCUP PO PRN (06:00)
[2022-05-24] MEDS ORDERED: [UNRECOGNIZED DRUG - OTHER] PO SCH (09:00)
[2022-05-24] MEDS: LEVOTHYROXINE SODIUM 75 MCG TABLET PO SCH (09:45)
[2022-05-24 13:40] LABS: APPEARANCE,URINE CLEAR (CLEAR); BILIRUBIN,URINE NEGATIVE (NEGATIVE); GLUCOSE, URINE (UA) NEGATIVE (NEGATIVE); KETONES,URINE NEGATIVE (NEGATIVE); LEUKOCYTE ESTERASE ,URINE NEGATIVE (NEGATIVE); NITRATE,URINE NEGATIVE (NEGATIVE); OCCULT BLOOD,URINE NEGATIVE (NEGATIVE); PH,URINE 7.5 (5.0-8.0); PROTEIN,URINE NEGATIVE (NEGATIVE); SPECIFIC GRAVITIY, URINE 1.011 (1.003-1.030); UROBILINOGEN,URINE <=1.0 mg/dL (<=1.0)
[2022-05-24 13:48] LABS: AMPHET/METH SCREEN,URINE NEGATIVE (NEGATIVE); BARBITURATE SCREEN, URINE NEGATIVE (NEGATIVE); BENZODIAZEPINES SCREEN,URINE NEGATIVE (NEGATIVE); CANNABINOID SCREEN,URINE NEGATIVE (NEGATIVE); COCAINE SCREEN,URINE NEGATIVE (NEGATIVE); METHADONE SCREEN, URINE NEGATIVE (NEGATIVE); OPIATE SCREEN,URINE NEGATIVE (NEGATIVE)
[2022-05-24 13:52] LABS: PHENCYCLIDINE SCREEN,URINE NEGATIVE (NEGATIVE)
[2022-05-24 20:16] VITALS: BP 131/74
[2022-05-25] MEDS ORDERED: INFLUENZA VIRUS VACCINE QVS 2022-23 (6MO+)/PF 60 MCG/0.5 ML SYRINGE IM. ONE (05:30)
[2022-05-25] MEDS: LEVOTHYROXINE SODIUM 75 MCG TABLET PO SCH (06:38)
[2022-05-25] MEDS: CloZAPine 100 MG TABLET PO SCH ×2 (08:07→20:13)
[2022-05-25] MEDS: DIVALPROEX SODIUM 500 MG DR TABLET PO SCH ×3 (08:07→16:41)
[2022-05-25 08:11] VITALS: BP 108/79
[2022-05-25] MEDS: LORazepam 2 MG TABLET PO PRN ×2 (09:25→20:14)
[2022-05-25] MEDS: HALOPERIDOL 5 MG TABLET PO PRN (12:19)
[2022-05-25 20:17] VITALS: BP 121/63
[2022-05-26] MEDS: LEVOTHYROXINE SODIUM 75 MCG TABLET PO SCH (06:38)
[2022-05-26 07:25] VITALS: BP 133/84
[2022-05-26 07:30] VITALS: BP 114/72
[2022-05-26 07:38] LABS: CHOL/HDL RATIO 3.1 (3.9-5.7); FREE T4 (FREE THYROXINE) 0.88 ng/dL (0.76-1.46); THYROID STIMULATING HORMONE 6.27 uIU/mL (0.36-3.74)
[2022-05-26 08:00] VITALS: BP 133/84
[2022-05-26] MEDS: DIVALPROEX SODIUM 500 MG DR TABLET PO SCH ×3 (09:00→16:42)
[2022-05-26] MEDS: CloZAPine 100 MG TABLET PO SCH ×2 (09:00→21:04)
[2022-05-26 14:15] VITALS: BP 121/85
[2022-05-26 16:32] VITALS: BP 132/87
[2022-05-26] MEDS: ZOLPIDEM TARTRATE 10 MG TABLET PO PRN (21:04)
[2022-05-27] MEDS: LEVOTHYROXINE SODIUM 75 MCG TABLET PO SCH (05:59)
[2022-05-27 06:54] LABS: COVID AG,FIA SOURCE NASAL SWAB
[2022-05-27 07:39] LABS: BASOPHILS % (AUTO) 0.4 % (0.0-2.0); EOSINOPHILS % (AUTO) 1.4 % (1.0-6.0); HEMATOCRIT 40.5 % (36-46); HEMOGLOBIN 13.5 g/dL (12.0-16.0); LYMPHOCYTES # (AUTO) 3.1 K/uL (1.0-4.8); MEAN CORPUSCULAR HEMOGLOBIN 32.4 pg (26.0-34.0); MEAN CORPUSCULAR HGB CONC 33.4 G/dL (31.0-37.0); MEAN CORPUSCULAR VOLUME 97 fL (80-100); MONOCYTES # (AUTO) 0.9 K/uL (0.1-1.0); MONOCYTES % (AUTO) 12.4 % (2.0-9.0); NEUTROPHILS # (AUTO) 2.9 K/uL (1.8-7.7); NEUTROPHILS % (AUTO) 41.8 % (40.0-70.0); PLATELET COUNT (AUTO) 168 K/uL (150-450); RED BLOOD CELL COUNT(AUTO) 4.17 MIL/uL (4.00-5.20)
[2022-05-27] MEDS: HALOPERIDOL 5 MG TABLET PO PRN ×2 (08:27→15:31)
[2022-05-27 08:42] VITALS: BP 128/69
[2022-05-27] MEDS: CloZAPine 100 MG TABLET PO SCH ×2 (08:56→20:54)
[2022-05-27] MEDS: DIVALPROEX SODIUM 500 MG DR TABLET PO SCH ×3 (08:57→17:20)
[2022-05-27] MEDS: LORazepam 2 MG TABLET PO PRN (08:59)
[2022-05-27 18:20] VITALS: BP 124/79
[2022-05-27] MEDS: ZOLPIDEM TARTRATE 10 MG TABLET PO PRN (20:54)
[2022-05-28] MEDS: LEVOTHYROXINE SODIUM 75 MCG TABLET PO SCH (06:10)
[2022-05-28] MEDS: HALOPERIDOL 5 MG TABLET PO PRN ×2 (07:48→15:32)
[2022-05-28] MEDS: CloZAPine 100 MG TABLET PO SCH ×2 (08:30→20:48)
[2022-05-28] MEDS: DIVALPROEX SODIUM 500 MG DR TABLET PO SCH ×2 (08:30→16:24)
[2022-05-28 08:35] VITALS: BP 137/87
[2022-05-28] MEDS: LORazepam 2 MG TABLET PO PRN (09:38)
[2022-05-28 16:12] VITALS: BP 126/84
[2022-05-28] MEDS: ZOLPIDEM TARTRATE 10 MG TABLET PO PRN (20:48)
[2022-05-29] MEDS: LEVOTHYROXINE SODIUM 75 MCG TABLET PO SCH (06:00)
[2022-05-29] MEDS: CloZAPine 100 MG TABLET PO SCH ×2 (08:15→20:41)
[2022-05-29] MEDS: DIVALPROEX SODIUM 500 MG DR TABLET PO SCH ×2 (08:16→17:06)
[2022-05-29 08:37] VITALS: BP 111/72
[2022-05-29 16:03] VITALS: BP 138/82
[2022-05-29 21:06] VITALS: BP 135/85
[2022-05-29] MEDS: ZOLPIDEM TARTRATE 10 MG TABLET PO PRN (21:45)
[2022-05-30] MEDS: LEVOTHYROXINE SODIUM 75 MCG TABLET PO SCH (06:53)
[2022-05-30] MEDS: DIVALPROEX SODIUM 500 MG DR TABLET PO SCH ×2 (08:29→16:34)
[2022-05-30] MEDS: CloZAPine 100 MG TABLET PO SCH ×2 (08:29→20:50)
[2022-05-30 08:48] VITALS: BP 126/79
[2022-05-30] MEDS: ZOLPIDEM TARTRATE 10 MG TABLET PO PRN (21:18)
[2022-05-31] MEDS: LEVOTHYROXINE SODIUM 75 MCG TABLET PO SCH (06:30)
[2022-05-31 08:25] VITALS: BP 157/92
[2022-05-31] MEDS: CloZAPine 100 MG TABLET PO SCH (08:31)
[2022-05-31] MEDS: DIVALPROEX SODIUM 500 MG DR TABLET PO SCH ×2 (08:34→16:04)
[2022-05-31 09:13] LABS: COVID AG,FIA SOURCE NASOPHARYNGEAL
[2022-05-31] MEDS ORDERED: DIVA-112 PO (12:59)
[2022-05-31] MEDS ORDERED: CLOZ100T11 PO (12:59)
[2022-05-31 16:06] VITALS: BP 148/94
== END 2022-05-31 16:51 | disposition home or self-care (01) | DRG 750 ==
LOC: EMS 18:03 → 3EI 05-24 04:00 → B3A 05-24 17:39 → 3EC 05-26 14:16
PROVIDERS: ADMIT Psychiatry & Neurology Psychiatry; ATTEND Psychiatry & Neurology Psychiatry
DX: F25.0 Schizoaffective disorder, bipolar type (principal); E03.9 Hypothyroidism, unspecified; I10 Essential (primary) hypertension; F84.0 Autistic disorder; F41.9 Anxiety disorder, unspecified; G47.00 Insomnia, unspecified; K21.9 Gastro-esophageal reflux disease without esophagitis; Z20.822 Contact with and (suspected) exposure to COVID-19; K59.00 Constipation, unspecified; Z98.51 Tubal ligation status; Z79.899 Other long term (current) drug therapy
CPT/HCPCS: 80053; 80061; 80164; 80307; 81003; 84439; 84443; 84703; 85025; 85032; 87081; 99285; G0480

== ENCOUNTER 2022-05-26 08:10 | Emergency (ER) | payer MEDICAID, OTHER ==
[~2022-05-26] VITALS: Ht 160 cm; Wt 63.6 kg
[2022-05-26] MEDS ORDERED: ACETAMINOPHEN 325 MG TABLET PO ONE (08:45)
[2022-05-26 12:54] VITALS: BP 116/85
== END 2022-05-26 13:05 | disposition home or self-care (01) ==
LOC: EMS 08:13
DX: S00.93XA Contusion of unspecified part of head, initial encounter (principal); F25.0 Schizoaffective disorder, bipolar type; F84.0 Autistic disorder; Z98.51 Tubal ligation status; Y04.8XXA Assault by other bodily force, initial encounter; Y93.89 Activity, other specified; Y92.89 Other specified places as the place of occurrence of the external cause; Y99.8 Other external cause status
CPT/HCPCS: 70450; 72125; 99284